=== PATIENT | male | born 1945 | race Caucasian/White ===

== ENCOUNTER 2016-12-02 09:28 | Emergency (ER) | payer OTHER ==
[2016-12-02] MEDS ORDERED: ONDANSETRON 4 MG/2 ML VIAL IVPUSH ONE (10:05)
[2016-12-02] MEDS ORDERED: SODIUM CHLORIDE 1,000 ML IV STA (10:05)
[2016-12-02 10:08] VITALS: BP 139/75; PULSE 64; TEMP 97.8; BMI 29.8
[2016-12-02] MEDS ORDERED: ONDANSETRON 4 MG/2 ML VIAL ONE (10:13)
[2016-12-02 10:22] LABS: BASOPHIL 0.5 % (0-2.0); EOSINOPHIL 1.4 % (0-4.5); MCH 30.6 pg (25.7-33.7); MCHC 34.5 g/dl (32.0-35.9); MEAN CELL VOLUME 88.8 fl (80-96); MEAN PLT VOLUME 9.3 fl (7.5-11.1); NEUTROPHILS 61.4 % (42.8-82.8); PLATELET COUNT 184 K/MM3 (134-434); RDW 13.4 % (11.9-15.9); WHITE BLOOD COUNT 6.9 K/mm3 (4.0-10.0)
--- NOTE | 2016-12-02 10:31 | PDOC ---
History of Present Illness - General Chief Complaint: Pain, Acute Stated Complaint: ABD PAIN Time Seen by Provider: 12/02/16 09:41 History Source: Patient Exam Limitations: Other (Hard of hearing, poor speech s/p stroke 2 years ago) - History of Present Illness Initial Comments: 12/02/16 10:30 Patient is a 70-year-old male with a past medical history of hyperlipidemia, depression, high blood pressure, constipation, GERD, presents to the emergency department today complaining of abdominal pain and vomiting. History is largely given by his visiting nurse. She states that yesterday he complained that he wasn't feeling well. He vomited multiple times yesterday. He has had decreased appetite and has not eaten since yesterday. Denies vomiting this morning. Aid states that he was in a lot of pain this morning and wanted to come to the emergency department. Admits to constipation. Denies chest pain, palpitations, shortness of breath, edema, diarrhea, tarry stools, hematochezia, hematemesis, urgency, frequency and dysuria. Past History - Travel Traveled outside of the country in the last 30 days: No Close contact w/someone who was outside of country & ill: No - Past Medical History Allergies/Adverse Reactions: Allergies Allergy/AdvReac Type Severity Reaction Status Date / Time No Known Allergies Allergy Verified 12/02/16 09:41 Home Medications: Ambulatory Orders Aspirin Coated [Ecotrin -] 81 mg PO DAILY 08/08/15 Docusate Sodium [Colace -] 100 mg PO TID 08/08/15 Ezetimibe [Zetia] 10 mg PO DAILY 08/08/15 Ibuprofen [Motrin -] 600 mg PO BID 08/08/15 Metoprolol Tartrate [Lopressor -] 25 mg PO BID 08/08/15 Omeprazole [Prilosec (RX)] 15 mg PO DAILY 08/08/15 Quetiapine Fumarate [Seroquel -] 400 mg PO HS 08/08/15 Repaglinide 2 mg PO TID 08/08/15 Sertraline HCl [Zoloft -] 25 mg PO DAILY 08/08/15 Simvastatin [Zocor -] 20 mg PO HS 08/08/15 Polyethylene Glycol 3350 [Miralax 119 gm Btl -] 17 gm PO DAILY PRN #3 bottle Ondansetron [Ondansetron Odt] 4 mg PO Q8H PRN #10 tab.[place] 12/02/16 Anemia: No Asthma: No Cancer: Yes Cardiac Disorders: Yes CVA: Yes (left sided) COPD: No CHF: No Dementia: No Diabetes: Yes (NID) GI Disorders: Yes (gerd) Disorders: No HTN: Yes Hypercholesterolemia: Yes Liver Disease: No Seizures: No Thyroid Disease: No - Surgical History Cardiac Surgery: Yes (triple bypass) - Psycho/Social/Smoking Cessation Hx Anxiety: No Suicidal Ideation: No Smoking Status: No Smoking History: Never smoked Have you smoked in the past 12 months: No Number of Cigarettes Smoked Daily: 0 Information on smoking cessation initiated: No Hx Alcohol Use: No Drug/Substance Use Hx: No Substance Use Type: None Hx Substance Use Treatment: No Review of Systems - Review of Systems Able to Perform ROS?: Yes Is the patient limited Indonesian proficient: No Constitutional: No: Chills, Fever, Malaise, Weakness Respiratory: No: Cough, Orthopnea, Shortness of Breath Cardiac (ROS): No: Chest Pain, Edema, Palpitations ABD/GI: Yes: Constipated, Nausea, Vomiting. No: Abdominal Distended, Abd. Pain w/ defecation, Diarrhea, Rectal Bleeding, Tarry Stools : No: Burning, Dysuria, Frequency *Physical Exam - Vital Signs Last Vital Signs Temp Pulse Resp BP Pulse Ox 97.8 F 64 18 139/75 100 12/02/16 09:41 12/02/16 09:41 12/02/16 09:41 12/02/16 09:41 12/02/16 09:41 - Physical Exam Comments: 12/02/16 10:35 GENERAL: Well developed, well nourished. Awake and alert, non verbal. No acute distress. HEENT: Normocephalic, atraumatic. PERRLA, EOMI. No conjunctival pallor. Sclera are non- icteric. Moist mucous membranes. Oropharynx is clear. NECK: Supple. Full ROM. No JVD. Carotid pulses 2+ and symmetric, without bruits. No thyromegaly. No lymphadenopathy. CARDIOVASCULAR: Regular rate and rhythm. No murmurs, rubs, or gallops. Distal pulses are 2+ and symmetric. PULMONARY: No evidence of respiratory distress. Lungs clear to auscultation bilaterally. No wheezing, rales or rhonchi. ABDOMINAL: Soft. TTP of the RLQ. Non-distended. (+) rebound tenderness with LLQ deep palpation. (-) psoas and obturator signs. No guarding. No organomegaly. Normoactive bowel sounds. MUSCULOSKELETAL Contracted L arm d/t old stroke. Normal range of motion at all other joints. No bony deformities or tenderness. No CVA tenderness. EXTREMITIES: No cyanosis. No clubbing. No edema. No calf tenderness. SKIN: Warm and dry. Normal capillary refill. No rashes. No jaundice. NEUROLOGICAL: Alert, awake, appropriate. Cranial nerves 2-12 intact. No deficits to light touch and temperature in face, upper extremities and lower extremities. No motor deficits in the in face, upper extremities and lower extremities. L upper extremity contracted d/t prior stroke. Normoreflexic in the upper and lower extremities. Non-verbal. Toes are down-going bilaterally. Gait is unobserved. PSYCHIATRIC: Cooperative. Good eye contact. Appropriate mood and affect. ED Treatment Course - LABORATORY CBC & Chemistry Diagram: 12/02/16 10:07 12/02/16 11:31 - ADDITIONAL ORDERS Additional order review: 12/02/16 10:07 RBC 5.03 MCV 88.8 MCHC 34.5 RDW 13.4 MPV 9.3 D Neutrophils % 61.4 Lymphocytes % 27.3 D Monocytes % 9.4 Eosinophils % 1.4 Basophils % 0.5 - Medications Given in the ED: ED Medications Discontinued Medications Generic Name Dose Route Start Last Admin Trade Name Freq PRN Reason Stop Dose Admin Ondansetron HCl 4 mg 12/02/16 10:05 12/02/16 10:17 Zofran Injection IVPUSH 12/02/16 10:06 4 mg ONCE ONE Administration Medical Decision Making - Medical Decision Making 12/02/16 10:40 Patient is a 70-year-old male with a past medical history of hyperlipidemia, depression, high blood pressure, constipation, GERD, presents to the emergency department today complaining of abdominal pain and vomiting. Patient is a poor historian, and most of the history is extracted from the visiting nurse. Hx of paralytic ilius Given his abdominal pain we'll obtain CT of the abdomen to rule out possible appendicitis, diverticulitis. Also could be a SBO, ilius, viral syndrome. No recent antibiotic use or new foods. 1. CBC CMP, lipase, cardiac labs, UA 2. EKG, CT of the abdomen. We will send after CMP is back 3. Zofran for nausea and fluids 4. Re-evaluate 12/02/16 12:08 CMP hemolyized. Waiting for repeat labs to evaluate scanning options. 12/02/16 13:01 Kidney function tests were WNL. Pt sent for CT Abd/pelvis with contrasts 12/02/16 14:52 CT ABD/pelvis Impression: trace right pleural effusion. Otherwise no significant entered old change. No CT evidence of acute process in the abdomen or pelvis. Normal-appearing appendix. 12/02/16 15:27 Pt. states he is feeling much better after the zofran. Will PO trial and home 12/02/16 15:36 Pt. tolerates PO fluid. Will discharge home at this time. Pt. understands all discharge instructions and all questions were answered at this time. *DC/Admit/Observation/Transfer Diagnosis at time of Disposition: Abdominal pain Qualifiers: Abdominal location: generalized Qualified Code(s): R10.84 - Generalized abdominal pain - Discharge Dispostion Admit: No - Prescriptions Prescriptions: Ondansetron [Ondansetron Odt] 4 mg PO Q8H PRN #10 tab.rapdis PRN Reason: Nausea - Referrals Referrals: Carlitos Ribeiro MD [Primary Care Provider] - - Patient Instructions Printed Discharge Instructions: DI for Acute Abdomen Additional Instructions: You had abdominal pain. Your CAT Scan today was negative for appendicitis, small bowel obstruction, or any other acute pathology. Eat a bland diet for the next few days such as toast,apple sauce, bananas, and plain rice. You may take tylenol or motrin as needed for pain. Follow up with your primary care doctor by Friday. Return to the emergency department if you have worsening pain, fevers, chills, vomiting or any changes in your symptoms.
[2016-12-02 10:39] LABS: INR 1.14 (0.82-1.09); PROTHROMBIN TIME (PATIENT) 12.6 SEC (9.98-11.88)
--- NOTE | 2016-12-02 11:32 | PDOC ---
*Physical Exam - Vital Signs Last Vital Signs Temp Pulse Resp BP Pulse Ox 97.8 F 64 18 139/75 100 12/02/16 09:41 12/02/16 09:41 12/02/16 09:41 12/02/16 09:41 12/02/16 09:41 - Physical Exam General Appearance: Yes: Nourished Neck: positive: Trachea midline Respiratory/Chest: positive: Lungs Clear, Normal Breath Sounds Cardiovascular: positive: Regular Rhythm, Regular Rate, S1, S2 Gastrointestinal/Abdominal: positive: Normal Bowel Sounds, Tender, Soft, Protuberent, Other (distended) Musculoskeletal: positive: Normal Inspection. negative: CVA Tenderness Extremity: positive: Normal Capillary Refill, Normal Inspection Integumentary: positive: Normal Color, Dry, Warm Heart Score/ECG Review #1 General ECG Interpretation: Sinus Rhythm, Normal Rate (62), Normal Intervals, No acute ischemic changes Compared to previous ECG there are: Other (comparison 08/08/15. TWI V1 - V2) - ECG Intrepretation Rhythm: Regularly Irregular ED Treatment Course - LABORATORY CBC & Chemistry Diagram: 12/02/16 10:07 12/02/16 10:07 - ADDITIONAL ORDERS Additional order review: Laboratory Results 12/02/16 12/02/16 12/02/16 10:07 10:07 09:50 INR 1.14 Sodium Cancelled Potassium Cancelled Chloride Cancelled Carbon Dioxide Cancelled Anion Gap Cancelled BUN Cancelled Creatinine Cancelled Creat Clearance w eGFR Cancelled Random Glucose Cancelled Calcium Cancelled Total Bilirubin Cancelled AST Cancelled ALT Cancelled Alkaline Phosphatase Cancelled Creatine Kinase Cancelled Troponin I Cancelled Total Protein Cancelled Albumin Cancelled Lipase Cancelled 12/02/16 10:07 RBC 5.03 MCV 88.8 MCHC 34.5 RDW 13.4 MPV 9.3 D Neutrophils % 61.4 Lymphocytes % 27.3 D Monocytes % 9.4 Eosinophils % 1.4 Basophils % 0.5 - Medications Given in the ED: ED Medications Discontinued Medications Generic Name Dose Route Start Last Admin Trade Name Freq PRN Reason Stop Dose Admin Ondansetron HCl 4 mg 12/02/16 10:05 12/02/16 10:17 Zofran Injection IVPUSH 12/02/16 10:06 4 mg ONCE ONE Administration Medical Decision Making - Medical Decision Making 12/02/16 11:28 70 yo M with h/o prior CABG, HTN CVA left sided weakness, expressive aphasia her wtih c/o n/v and abd pain. was here for similar within the last year, at that time had an ilieus. unsure change to bowelmovements. no f/c. no other complaintsd. on exam pt awake alert, lungs clear. heart RRR no mr/g. abd soft distended. mild lower bilat lower abd ttp. ext wwp. differential: ilius, sbo, divertic, appy, urinary retention, uti. plan ua labs ct a/p antiemetics reassess. 12/02/16 11:33 pt seen and examined. discussed with MEHDI Armendariz, agree [facility] assessment and plan
[2016-12-02 12:22] LABS: ALBUMIN 3.6 g/dl (3.4-5.0); ANION GAP 9 (8-16); BILIRUBIN,TOTAL 0.4 mg/dL (0.2-1.0); CALCIUM 8.9 mg/dL (8.5-10.1); CO2 24 mmol/L (21-32); GLUCOSE,RANDOM 101 mg/dL (74-106); SGPT/ALT 28 U/L (12-78); TOT PROT 6.8 g/dl (6.4-8.2)
[2016-12-02 12:25] LABS: ALK PHOS 48 U/L (45-117); TROPONIN I < 0.02 ng/ml (0.00-0.05)
[2016-12-02 12:26] LABS: SGOT/AST 30 U/L (15-37)
--- NOTE | 2016-12-02 12:31 | EKG ---
Test Reason : Blood Pressure : / mmHG Vent. Rate : 062 BPM Atrial Rate : 062 BPM P-R Int : 164 ms QRS Dur : 082 ms QT Int : 414 ms P-R-T Axes : 054 026 061 degrees QTc Int : 420 ms NORMAL SINUS RHYTHM NONSPECIFIC ST ABNORMALITY ABNORMAL ECG WHEN COMPARED WITH ECG OF 08-AUG-2015 10:46, NO SIGNIFICANT CHANGE WAS FOUND Confirmed by KOBY MENDIOLA MD ([id number]) on 12/02/2016 12:31:32 PM Referred By: Confirmed By:KOBY MENDIOLA MD
[2016-12-02 14:38] LABS: URINE APPEARANCE CLEAR; URINE BILIRUBIN NEGATIVE (NEGATIVE); URINE BLOOD NEGATIVE (NEGATIVE); URINE COLOR YELLOW; URINE GLUCOSE (UA) NEGATIVE (NEGATIVE); URINE KETONE 1+ (NEGATIVE); URINE LEUK ESTERASE NEGATIVE (NEGATIVE); URINE NITRITE NEGATIVE (NEGATIVE); URINE PROTEIN NEGATIVE (NEGATIVE); URINE UROBILINOGEN NEGATIVE mg/dL (0.2-1.0)
== END 2016-12-02 15:44 | disposition home or self-care (01) ==
LOC: JER 09:28
PROC: 3E0337Z Introduction of Electrolytic and Water Balance Substance into Peripheral Vein, Percutaneous Approach (ICD-10-PCS; principal; 2016-12-02)
PROC: 3E033GC Introduction of Other Therapeutic Substance into Peripheral Vein, Percutaneous Approach (ICD-10-PCS; 2016-12-02)
DX: R10.84 Generalized abdominal pain (principal); I10 Essential (primary) hypertension; K21.9 Gastro-esophageal reflux disease without esophagitis; E78.00 Pure hypercholesterolemia, unspecified; F32.9 Major depressive disorder, single episode, unspecified
CPT/HCPCS: 36415; 71010-TC; 74177-TC; 80053; 81003; 82550; 82553; 83690; 84484; 85025; 85610; 93005; 93010; 96361; 96374; 99283-25

== ENCOUNTER 2017-06-07 09:09 | Emergency (ER) | payer OTHER ==
[2017-06-07 09:39] VITALS: BMI 26.5
[2017-06-07 10:14] LABS: BASO % 0.2 % (0-2.0); HEMATOCRIT 43.3 % (35.4-49); HEMOGLOBIN 14.6 GM/dL (11.7-16.9); LYMPH % 24.6 % (8-40); MCH 30.6 pg (25.7-33.7); MCHC 33.7 g/dl (32.0-35.9); MEAN CELL VOLUME 90.8 fl (80-96); MEAN PLT VOLUME 9.2 fl (7.5-11.1); MONO % 8.7 % (3.8-10.2); NEUT % 64.5 % (42.8-82.8); PLATELET COUNT 194 K/MM3 (134-434); RBC 4.77 M/mm3 (4.00-5.60); RDW 13.1 % (11.9-15.9); WHITE BLOOD COUNT 5.8 K/mm3 (4.0-10.0)
--- NOTE | 2017-06-07 10:27 | PDOC ---
History of Present Illness - General History Source: Other (nursing aid) Exam Limitations: No Limitations - History of Present Illness Initial Comments: 06/07/17 11:15 The patient is a 71 year old male with a significant PMH of hyperlipidemia, depression, high blood pressure, constipation, and GERD who presents to the emergency department with multiple episodes of emesis and coughing since yesterday. His visiting nurse is at bedside and providing a brief history as she did not witness him vomiting. As per the nursing aid, she was told this morning that the patient had multiple episodes of non-bloody, non-bilious vomit yesterday. The patient is complaining of epigastric pain and cough but has no other complaints. As per the nursing aid, the patient is non-verbal at baseline. The patient denies chest pain, shortness of breath, headache and dizziness. Denies fever, chills, diarrhea and constipation. Denies dysuria, frequency, urgency and hematuria. Allergies: NKA Past surgical history: None reported. Social history: No reported alcohol, drug, or cigarette use. PCP: Carlitos Kay <Cecilia Velez - Last Filed: 06/07/17 12:45> <Fabiana Villagran - Last Filed: 06/07/17 13:08> - General Chief Complaint: Nausea/Vomiting Stated Complaint: VOMITING Time Seen by Provider: 06/07/17 09:13 Past History <Cecilia Velez - Last Filed: 06/07/17 12:45> - Past Medical History Anemia: No Asthma: No Cancer: Yes Cardiac Disorders: Yes (CABG) CVA: Yes (left sided) COPD: No CHF: No Dementia: No Diabetes: Yes (NID) GI Disorders: Yes (gerd) Disorders: No HTN: Yes Hypercholesterolemia: Yes Liver Disease: No Seizures: No Thyroid Disease: No - Surgical History Cardiac Surgery: Yes (triple bypass) - Suicide/Smoking/Psychosocial Hx Smoking Status: No Smoking History: Former smoker Have you smoked in the past 12 months: No Number of Cigarettes Smoked Daily: 0 If you are a former smoker, when did you quit?: 40 + YEARS Information on smoking cessation initiated: No Hx Alcohol Use: No Drug/Substance Use Hx: No Substance Use Type: None Hx Substance Use Treatment: No <Fabiana Villagran - Last Filed: 06/07/17 13:08> - Past Medical History Allergies/Adverse Reactions: Allergies Allergy/AdvReac Type Severity Reaction Status Date / Time No Known Allergies Allergy Verified 06/07/17 09:35 Home Medications: Ambulatory Orders Aspirin Coated [Ecotrin -] 81 mg PO DAILY 08/08/15 Docusate Sodium [Colace -] 100 mg PO TID 08/08/15 Ezetimibe [Zetia] 10 mg PO DAILY 08/08/15 Metoprolol Tartrate [Lopressor -] 25 mg PO BID 08/08/15 Sertraline HCl [Zoloft -] 25 mg PO DAILY 08/08/15 Simvastatin [Zocor -] 20 mg PO HS 08/08/15 Review of Systems - Review of Systems Able to Perform ROS?: Yes Comments:: 06/07/17 11:17 GENERAL/CONSTITUTIONAL: No fever or chills. No weakness. HEAD, EYES, EARS, NOSE AND THROAT: No change in vision. No ear pain or discharge. No sore throat. CARDIOVASCULAR: No chest pain or shortness of breath. RESPIRATORY: (+) Cough. No wheezing, or hemoptysis. GASTROINTESTINAL: (+) Epigastric pain. (+) Vomiting. No diarrhea or constipation. GENITOURINARY: No dysuria, frequency, or change in urination. MUSCULOSKELETAL: No joint or muscle swelling or pain. No neck or back pain. SKIN: No rash NEUROLOGIC: No headache, vertigo, loss of consciousness, or change in strength/ sensation. ENDOCRINE: No increased thirst. No abnormal weight change. HEMATOLOGIC/LYMPHATIC: No anemia, easy bleeding, or history of blood clots. ALLERGIC/IMMUNOLOGIC: No hives or skin allergy. <Cecilia Velez - Last Filed: 06/07/17 12:45> *Physical Exam - Vital Signs Last Vital Signs Temp Pulse Resp BP Pulse Ox 98.7 F 71 20 135/74 95 06/07/17 09:20 06/07/17 09:20 06/07/17 09:20 06/07/17 09:20 06/07/17 09:20 - Physical Exam Comments: 06/07/17 11:17 GENERAL: (+) Aphasic but can orient the pain and can write. Awake, alert, and fully oriented, in no acute distress HEAD: No signs of trauma EYES: PERRLA, EOMI, sclera anicteric, conjunctiva clear ENT: Auricles normal inspection, hearing grossly normal, nares patent, oropharynx clear without exudates. Moist mucosa NECK: Normal ROM, supple, no lymphadenopathy, JVD, or masses LUNGS: Breath sounds equal, clear to auscultation bilaterally. No wheezes, and no crackles HEART: Regular rate and rhythm, normal S1 and S2, no murmurs, rubs or gallops ABDOMEN: Soft, nontender, normoactive bowel sounds. No guarding, no rebound. No masses EXTREMITIES: (+) Contracture on the right hand. Normal range of motion, no edema. No clubbing or cyanosis. No cords, erythema, or tenderness NEUROLOGICAL: Cranial nerves II through XII grossly intact. Normal speech, normal gait SKIN: Warm, Dry, normal turgor, no rashes or lesions noted. <Cecilia Velez - Last Filed: 06/07/17 12:45> - Vital Signs Last Vital Signs Temp Pulse Resp BP Pulse Ox 98.7 F 71 20 135/74 95 06/07/17 09:20 06/07/17 09:20 06/07/17 09:20 06/07/17 09:20 06/07/17 09:20 <Fabiana Villagran - Last Filed: 06/07/17 13:08> ED Treatment Course - LABORATORY CBC & Chemistry Diagram: 06/07/17 09:50 06/07/17 09:50 - ADDITIONAL ORDERS Additional order review: 06/07/17 09:50 RBC 4.77 MCV 90.8 MCHC 33.7 RDW 13.1 MPV 9.2 Neutrophils % 64.5 Lymphocytes % 24.6 Monocytes % 8.7 Eosinophils % 2.0 Basophils % 0.2 <Cecilia Velez - Last Filed: 06/07/17 12:45> - LABORATORY CBC & Chemistry Diagram: 06/07/17 09:50 06/07/17 09:50 - ADDITIONAL ORDERS Additional order review: 06/07/17 09:50 RBC 4.77 MCV 90.8 MCHC 33.7 RDW 13.1 MPV 9.2 Neutrophils % 64.5 Lymphocytes % 24.6 Monocytes % 8.7 Eosinophils % 2.0 Basophils % 0.2 <Fabiana Villagran - Last Filed: 06/07/17 13:08> Medical Decision Making - Medical Decision Making 06/07/17 13:01 Pt presents to the ED after brought in by home health aide for vomiting. Patient denies complaints in the ED and is tolerating PO. Labs show no evidence of severe infection or biliary disease. CXR is negative. Will discharge home with follow up with PMD Dr. Ribeiro on Friday. I have discussed this plan with Dr. Ribeiro and he is in agreement. <Fabiana Villagran - Last Filed: 06/07/17 13:08> *DC/Admit/Observation/Transfer - Attestations Scribe Attestion: 06/07/17 11:17 Documentation prepared by Cecilia Velez, acting as director of medical services for Fabiana Villagran MD. <Cecilia Velez - Last Filed: 06/07/17 12:45> - Discharge Dispostion Admit: No <Fabiana Villagran - Last Filed: 06/07/17 13:08> Diagnosis at time of Disposition: Vomiting Qualifiers: Vomiting type: unspecified Vomiting Intractability: non-intractable Nausea presence: with nausea Qualified Code(s): R11.2 - Nausea with vomiting, unspecified - Discharge Dispostion Disposition: HOME Condition at time of disposition: Good - Referrals Referrals: Carlitos Ribeiro MD [Primary Care Provider] - - Patient Instructions Printed Discharge Instructions: DI for Vomiting -- Adult Additional Instructions: return to the ED for severe pain, nausea and vomiting unable to keep fluids down , fever, other new or worsening symptoms. Make sure that you follow up with Dr. Carlitos Ribeiro on Friday morning--call the office for follow up. - Post Discharge Activity
[2017-06-07 11:26] LABS: ALBUMIN 3.9 g/dl (3.4-5.0); ANION GAP 10 (8-16); BLOOD UREA NITROGEN 20 mg/dL (7-18); CALCIUM 8.4 mg/dL (8.5-10.1); CHLORIDE 105 mmol/L (98-107); CO2 26 mmol/L (21-32); CREATININE 1.1 mg/dL (0.7-1.3); GLUCOSE,RANDOM 113 mg/dL (74-106); SGOT/AST 20 U/L (15-37); SGPT/ALT 27 U/L (12-78); SODIUM 141 mmol/L (136-145)
[2017-06-07 11:40] LABS: ALK PHOS 49 U/L (45-117); BILIRUBIN,TOTAL 0.5 mg/dL (0.2-1.0); TOT PROT 7.3 g/dl (6.4-8.2)
[2017-06-07 12:40] LABS: URINE APPEARANCE CLEAR; URINE BILIRUBIN NEGATIVE (NEGATIVE); URINE BLOOD NEGATIVE (NEGATIVE); URINE COLOR YELLOW; URINE GLUCOSE (UA) NEGATIVE (NEGATIVE); URINE KETONE 1+ (NEGATIVE); URINE LEUK ESTERASE NEGATIVE (NEGATIVE); URINE NITRITE NEGATIVE (NEGATIVE); URINE PROTEIN NEGATIVE (NEGATIVE)
[2017-06-07 13:30] VITALS: BP 124/81; PULSE 78; TEMP 98.2
--- NOTE | 2017-06-08 16:08 | EKG ---
Test Reason : Blood Pressure : / mmHG Vent. Rate : 073 BPM Atrial Rate : 073 BPM P-R Int : 170 ms QRS Dur : 084 ms QT Int : 392 ms P-R-T Axes : 065 047 066 degrees QTc Int : 431 ms NORMAL SINUS RHYTHM NONSPECIFIC ST AND T WAVE ABNORMALITY ABNORMAL ECG WHEN COMPARED WITH ECG OF 02-DEC-2016 10:03, NO SIGNIFICANT CHANGE WAS FOUND Confirmed by Austin Bryant ([id number]) on 06/08/2017 4:07:39 PM Referred By: Confirmed By:Austin Bryant
== END 2017-06-07 13:31 | disposition home or self-care (01) ==
LOC: JER 09:09
DX: R11.2 Nausea with vomiting, unspecified (principal); I25.10 Atherosclerotic heart disease of native coronary artery without angina pectoris; I10 Essential (primary) hypertension; Z95.1 Presence of aortocoronary bypass graft; Z87.891 Personal history of nicotine dependence; E11.9 Type 2 diabetes mellitus without complications; Z79.84 Long term (current) use of oral hypoglycemic drugs; K21.9 Gastro-esophageal reflux disease without esophagitis; I69.854 Hemiplegia and hemiparesis following other cerebrovascular disease affecting left non-dominant side; I69.820 Aphasia following other cerebrovascular disease
CPT/HCPCS: 36415; 71045-TC; 80053; 81003; 83605; 83690; 85025; 93005; 93010; 99283-25

== ENCOUNTER 2018-04-14 08:58 | Emergency (ER) | payer OTHER ==
[2018-04-14 09:29] VITALS: BMI 40.3
--- NOTE | 2018-04-14 09:41 | PDOC ---
History of Present Illness - History of Present Illness Initial Comments: 04/14/18 10:54 The patient is a 72 year old with a past medical history of HTN, HLD, hearing impairment, anxiety, depression, and diabetes here today for evaluation of two episodes of falling. As per the patients aid, the patient fell yesterday and hit his right foot on a door which caused him to be unable to ambulate. The patients aid reports that he fell again this morning and was found on the floor. The aid was not able to confirm or deny LOC or headstrike. The patients aid confirms that the patient is usually confused and is at his baseline today. Patient denies headache, lightheadedness. Denies fever, chills. Denies chest pain, shortness of breath. Denies nausea, vomiting, diarrhea, abdominal pain. Denies lower extremity edema. Denies urinary symptoms. Denies neurologic symptoms. 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) COPD: No CHF: No Dementia: No Diabetes: Yes (NID) GI Disorders: Yes (gerd) Disorders: No HTN: Yes Hypercholesterolemia: Yes Liver Disease: No Seizures: No Thyroid Disease: No - Surgical History Cardiac Surgery: Yes (triple bypass) Cholecystectomy: No - Immunization History Immunization Up to Date: No - Suicide/Smoking/Psychosocial Hx Smoking Status: No Smoking History: Never smoked Have you smoked in the past 12 months: No Number of Cigarettes Smoked Daily: 0 If you are a former smoker, when did you quit?: 40 + YEARS Information on smoking cessation initiated: No Hx Alcohol Use: No Drug/Substance Use Hx: No Substance Use Type: None Hx Substance Use Treatment: No <Sheryl Major - Last Filed: 04/14/18 14:15> - Past Medical History Allergies/Adverse Reactions: Allergies Allergy/AdvReac Type Severity Reaction Status Date / Time No Known Allergies Allergy Verified 06/07/17 09:35 Home Medications: Ambulatory Orders Aspirin Coated [Ecotrin -] 81 mg PO DAILY 08/08/15 Docusate Sodium [Colace -] 100 mg PO TID 08/08/15 Ezetimibe [Zetia] 10 mg PO DAILY 08/08/15 Metoprolol Tartrate [Lopressor -] 25 mg PO BID 08/08/15 Sertraline HCl [Zoloft -] 25 mg PO DAILY 08/08/15 Simvastatin [Zocor -] 20 mg PO HS 08/08/15 Review of Systems - Review of Systems Able to Perform ROS?: No (hearing impaired, confuse) <Sheryl Major - Last Filed: 04/14/18 14:15> *Physical Exam - Vital Signs Last Vital Signs Temp Pulse Resp BP Pulse Ox 99.7 F H 84 16 110/65 98 04/14/18 09:57 04/14/18 09:57 04/14/18 09:57 04/14/18 09:57 04/14/18 09:57 - Physical Exam Comments: 04/14/18 10:54 General: NAD, well appearing Vascular: 2+ DP pulses symmetric and equal. Back: no midline tenderness, no stepoffs, FROM Focused MSK/Neuro Exam notable for soft compartments, Cap refill <2 sec. Proximal and distal strength 5/5, product marketing engineer strength 5/5 - equal and symmetric. Plantar flexion and dorsiflexion 5/5. FROM. Sensation grossly intact to light touch. No calf tenderness. Residual left sidedness with contracture. Skin: color normal color, warm and well perfused. Ankle: right medial malleolar tenderness Chest: anterior sternotomy scar <Robert Moreno - Last Filed: 04/14/18 10:45> - Vital Signs Last Vital Signs Temp Pulse Resp BP Pulse Ox 99.7 F H 73 16 106/65 100 04/14/18 09:21 04/14/18 09:21 04/14/18 09:21 04/14/18 09:21 04/14/18 09:21 <Sheryl Major - Last Filed: 04/14/18 14:15> Moderate Sedation - Procedure Monitoring Vital Signs: Procedure Monitoring Vital Signs Temperature 99.7 F H 04/14/18 09:57 Pulse Rate 84 04/14/18 09:57 Respiratory Rate 16 04/14/18 09:57 Blood Pressure 110/65 04/14/18 09:57 O2 Sat by Pulse Oximetry (%) 98 04/14/18 09:57 <Robert Moreno - Last Filed: 04/14/18 10:45> - Procedure Monitoring Vital Signs: Procedure Monitoring Vital Signs Temperature 99.7 F H 04/14/18 09:21 Pulse Rate 73 04/14/18 09:21 Respiratory Rate 16 04/14/18 09:21 Blood Pressure 106/65 04/14/18 09:21 O2 Sat by Pulse Oximetry (%) 100 04/14/18 09:21 <Sheryl Major - Last Filed: 04/14/18 14:15> Heart Score/ECG Review - ECG Impressions Comment:: 04/14/18 11:09 EKG normal sinus rhythm, no interval abnormalities, narrow QRS, ST and T wave segments and morphology normal. Nonspecific T wave abnormalities <Sheryl Major - Last Filed: 04/14/18 14:15> ED Treatment Course - LABORATORY CBC & Chemistry Diagram: 04/14/18 10:05 04/14/18 10:05 - ADDITIONAL ORDERS Additional order review: 04/14/18 10:05 RBC 4.95 MCV 89.9 MCHC 35.6 RDW 13.7 MPV 9.6 Neutrophils % 73.3 Lymphocytes % 14.6 D Monocytes % 11.4 H Eosinophils % 0.4 Basophils % 0.3 - Medications Given in the ED: ED Medications Discontinued Medications Generic Name Dose Route Start Last Admin Trade Name Freq PRN Reason Stop Dose Admin Acetaminophen 975 mg 04/14/18 09:52 04/14/18 10:28 Tylenol - PO 04/14/18 09:53 975 mg ONCE ONE Administration <Robert Moreno - Last Filed: 04/14/18 10:45> - LABORATORY CBC & Chemistry Diagram: 04/14/18 10:05 04/14/18 11:34 <Sheryl Major - Last Filed: 04/14/18 14:15> Medical Decision Making - Medical Decision Making 04/14/18 11:59 MDM: Sebastian 72 YOM with h/o HTN, HLD, hearing impairment, anxiety and depression presenting with unwitnessed fall, found on the ground complaining of right ankle and foot pain, unable to ambulate. History limited due to hearing impairment, but able to verbalize +left foot and ankle pain with movement. Vital signs reviewed, wnl. No fever on rectal check, only 99. spo2 improved, no respiratory sx, no cp or sob, no chest wall findings to suggest injury or infection, normal respirations. Prior notes reviewed, including admissions, discharges and consultations. laboratory results and imaging reviewed, basic labs and lytes wnl, notable for nonspecific leukocytosis, otherwise wnl UA_neg Foot and ankle xr with degenerative changes, ?fx of distal aspect of proximal phalanx of second toe, calcaneal spurs of degenerative nature, hammertoes. CXR clear, no infiltrate. no acute changes, no pathology. ED course: tylenol for analgesia, ambulation trial, d/w home health aid the results of XR with arthritic changes and ?toe fx. no ankle fx. will treat with hard sole shoe and lakeisha taping. rest ice and elevate, supportive care. scarlett PO intake, ambulation with baseline cane. Dispo: I discussed the physical exam findings, ancillary test results and final diagnoses with the patient's aid and pt.. I answered all of the patient's questions. The patient was satisfied with the care received and felt comfortable with the discharge plan and treatment plan. The patient will return to the Emergency Department with any new, persistent or worsening symptoms. fall safety precautions discussed. 04/14/18 14:13 04/14/18 14:14 <Sheryl Major - Last Filed: 04/14/18 14:15> *DC/Admit/Observation/Transfer - Attestations Scribe Attestion: 04/14/18 10:54 Documentation prepared by BRODERICK Soriano, acting as medical scientist for Sheryl Major MD, MD. <Robert Moreno - Last Filed: 04/14/18 10:45> - Discharge Dispostion Decision to Admit order: No - Attestations Physician Attestion: 04/14/18 11:59 I, Sheryl Major MD, attest that this document has been prepared under my direction and personally reviewed by me in its entirety. I further attest, that it accurately reflects all work, treatment, procedures and medical decision -making performed by me. <Sheryl Major - Last Filed: 04/14/18 14:15> Diagnosis at time of Disposition: Injury of toe on right foot - Discharge Dispostion Disposition: HOME Condition at time of disposition: Good - Referrals Referrals: Carlitos Ribeiro MD [Primary Care Provider] - - Patient Instructions Printed Discharge Instructions: DI for Hammer Toe, DI for Toe Fracture, How to Prevent Falls Additional Instructions: you have a toe fracture to your right 2nd toe possibly use the lakeisha taping for immobilization and a hard sole shoe, you can use the cane to help you ambulate weight bearing as tolerated, avoid over strenuous activity. rest ice and elevate for support tylenol for pain control. follow up with your primary doctor for reevaluation of your toe. FALL PREVENTION AT HOME WHAT YOU NEED TO KNOW There are many different factors that can increase your risk of falls. Falls can happen any time, but the majority of them occur in the home. Fall prevention includes ways to make your home and other areas safer. It also includes ways you can move more carefully to prevent a fall. Health conditions that cause changes in your blood pressure, vision, or muscle strength and coordination may increase your risk for falls. Medicines, including anesthesia, may increase your risk for falls if they make you dizzy, weak, or sleepy. FALL PREVENTION TIPS Stand or sit up slowly. This may help you keep your balance and prevent falls. Do not walk and talk at the same time. Concentrate on the task of walking and continue the conversation after you've reached a safe place. Wear shoes that fit well and have soles that product marketing engineer. Wear shoes both inside and outside. Use slippers with good product marketing engineer. Avoid shoes with high heels. Use assistive devices as directed. Your healthcare provider may suggest that you use a cane or walker to help you keep you balance. Be sure you have adequate lighting throughout your house. Keep paths clear. Remove books, shoes and other objects from walkways and stairs. Keep cords for telephones and lamps out of the way so you dont need to walk over them. Remove small rugs or secure them with double-sided tape. This will prevent you from tripping. Use a nightlight when getting out of bed at night. Stay active to maintain overall strength and endurance. Know your limitations. If there is a task you can not complete with ease, do not risk a fall by trying to complete it. Call 911 or have someone else call if: You have fallen and are unconscious You have fallen and cannot move part of your body Contact your healthcare provider if: You have fallen and have pain or a headache You have questions or concerns about your condition or care. - Post Discharge Activity
[2018-04-14] MEDS ORDERED: ACETAMINOPHEN 325 MG TABLET (FP) PO ONE (09:52)
[2018-04-14 10:16] LABS: BASO % 0.3 % (0-2.0); EOS % 0.4 % (0-4.5); HEMATOCRIT 44.5 % (35.4-49); HEMOGLOBIN 15.8 GM/dL (11.7-16.9); LYMPH % 14.6 % (8-40); MCHC 35.6 g/dl (32.0-35.9); MEAN CELL VOLUME 89.9 fl (80-96); MEAN PLT VOLUME 9.6 fl (7.5-11.1); MONO % 11.4 % (3.8-10.2); NEUT % 73.3 % (42.8-82.8); PLATELET COUNT 208 K/MM3 (134-434); RBC 4.95 M/mm3 (4.00-5.60); RDW 13.7 % (11.9-15.9); WHITE BLOOD COUNT 12.4 K/mm3 (4.0-10.0)
[2018-04-14] MEDS ORDERED: ACETAMINOPHEN 325 MG TABLET (FP) ONE (10:25)
[2018-04-14 10:28] LABS: URINE APPEARANCE CLEAR; URINE BILIRUBIN NEGATIVE (<2.0 mg/dL); URINE COLOR DKYELLOW; URINE GLUCOSE (UA) NEGATIVE (NEGATIVE); URINE KETONE NEGATIVE (NEGATIVE); URINE LEUK ESTERASE NEGATIVE (NEGATIVE); URINE NITRITE NEGATIVE (NEGATIVE); URINE PROTEIN 1+ (NEGATIVE)
[2018-04-14 11:03] LABS: EPI CELLS RARE /HPF (FEW); URINE MUCUS RARE
[2018-04-14 11:53] VITALS: BP 115/68; PULSE 70; TEMP 99.3
[2018-04-14 12:20] LABS: ALBUMIN 3.6 g/dl (3.4-5.0); ALK PHOS 56 U/L (45-117); ANION GAP 6 MMOL/L (8-16); BILIRUBIN,TOTAL 0.7 mg/dL (0.2-1); BLOOD UREA NITROGEN 17 mg/dL (7-18); CHLORIDE 103 mmol/L (98-107); CO2 28 mmol/L (21-32); GLUCOSE,RANDOM 131 mg/dL (74-106); POTASSIUM 4.1 mmol/L (3.5-5.1); SGOT/AST 19 U/L (15-37); SGPT/ALT 26 U/L (13-61); SODIUM 137 mmol/L (136-145); TOT PROT 7.2 g/dl (6.4-8.2)
--- NOTE | 2018-04-14 12:25 | EKG ---
Test Reason : Blood Pressure : / mmHG Vent. Rate : 073 BPM Atrial Rate : 073 BPM P-R Int : 160 ms QRS Dur : 082 ms QT Int : 382 ms P-R-T Axes : 029 015 047 degrees QTc Int : 420 ms NORMAL SINUS RHYTHM NONSPECIFIC ST ABNORMALITY ABNORMAL ECG Confirmed by MD SUNG, ANNIA ([id number]) on 04/14/2018 12:25:14 PM Referred By: Confirmed By:ANNIA ALMARAZ MD
== END 2018-04-14 16:31 | disposition home or self-care (01) ==
LOC: JER 08:58
DX: S99.821A Other specified injuries of right foot, initial encounter (principal); W18.39XA Other fall on same level, initial encounter; Z91.81 History of falling; Y93.89 Activity, other specified; Y92.038 Other place in apartment as the place of occurrence of the external cause; Y99.8 Other external cause status; I25.10 Atherosclerotic heart disease of native coronary artery without angina pectoris; I10 Essential (primary) hypertension; Z95.1 Presence of aortocoronary bypass graft; E11.9 Type 2 diabetes mellitus without complications; Z79.84 Long term (current) use of oral hypoglycemic drugs; E78.00 Pure hypercholesterolemia, unspecified; I69.854 Hemiplegia and hemiparesis following other cerebrovascular disease affecting left non-dominant side; Z87.898 Personal history of other specified conditions; K21.9 Gastro-esophageal reflux disease without esophagitis
CPT/HCPCS: 36415; 71046-TC-FY; 73610-TC-RT-FY; 73630-TC-RT-FY; 80053; 81003; 81015; 85025; 87086; 93005; 93010; 99284-25

== ENCOUNTER 2018-05-04 15:33 | Inpatient (IN) | payer OTHER ==
--- NOTE | 2018-05-04 16:31 | PDOC ---
History of Present Illness - General Stated Complaint: Altered Mental Status Time Seen by Provider: 05/04/18 16:15 - History of Present Illness Initial Comments: 05/04/18 16:30 The patient is a 72 year old with a past medical history of HTN, HLD, hearing impairment, anxiety, depression, and diabetes here today for unclear reason. Patient is deaf and mute. per ems, home improvement contractor called because patient was non- verbally expressing signs of loneliness and depression. Unclear which those were as this is all that was said to EMS. 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) COPD: No CHF: No Dementia: No Diabetes: Yes (NID) GI Disorders: Yes (gerd) Disorders: No HTN: Yes Hypercholesterolemia: Yes Liver Disease: No Seizures: No Thyroid Disease: No - Surgical History Cardiac Surgery: Yes (triple bypass) - Suicide/Smoking/Psychosocial Hx Smoking Status: No Smoking History: Never smoked Have you smoked in the past 12 months: No Number of Cigarettes Smoked Daily: 0 If you are a former smoker, when did you quit?: 40 + YEARS Hx Alcohol Use: No Drug/Substance Use Hx: No Substance Use Type: None Hx Substance Use Treatment: No Review of Systems - Review of Systems Able to Perform ROS?: Yes Is the patient limited Hungarian proficient: No Constitutional: No: Symptoms Reported HEENTM: No: Symptoms Reported ABD/GI: No: Symptoms Reported : No: Symptoms Reported Integumentary: No: Symptoms Reported Neurological: No: Symptoms reported All Other Systems: Reviewed and Negative *Physical Exam - Vital Signs Last Vital Signs Temp Pulse Resp BP Pulse Ox 98.7 F 76 18 111/79 99 05/04/18 16:24 05/04/18 16:24 05/04/18 16:24 05/04/18 16:24 05/04/18 16:24 - Physical Exam General Appearance: Yes: Nourished, Appropriately Dressed, Apparent Distress, Mild Distress. No: Intoxicated HEENT: positive: Other (very dysarthric) Respiratory/Chest: positive: Lungs Clear, Normal Breath Sounds. negative: Chest Tender, Respiratory Distress Cardiovascular: positive: Regular Rhythm, Regular Rate, S1, S2 Gastrointestinal/Abdominal: positive: Normal Bowel Sounds, Flat, Soft. negative : Tender Musculoskeletal: positive: Normal Inspection. negative: CVA Tenderness Extremity: positive: Normal Capillary Refill, Normal Inspection, Normal Range of Motion Integumentary: positive: Normal Color, Dry, Warm Neurologic: positive: Fully Oriented, Alert, Depressed Affect, Other (tearful) Moderate Sedation - Procedure Monitoring Vital Signs: Procedure Monitoring Vital Signs Temperature 98.7 F 05/04/18 16:24 Pulse Rate 76 05/04/18 16:24 Respiratory Rate 18 05/04/18 16:24 Blood Pressure 111/79 05/04/18 16:24 O2 Sat by Pulse Oximetry (%) 99 05/04/18 16:24 ED Treatment Course - LABORATORY CBC & Chemistry Diagram: 05/04/18 17:06 05/04/18 17:06 Medical Decision Making - Medical Decision Making 05/04/18 17:21 Was able to communicate with patient through written phrases. PAtient was able to express that he was depressed, tried to commit suicide today by taking pill. Refused to say what. Will perform a full tox workup. Patient doesn't have any signs of overdose. EKG shows normal sinus rhythm, non specific ST and T wave abnormality. Ordered 1:[address] Manzo. 05/04/18 19:48 Admitted to telemetry under Dr. Gomez *DC/Admit/Observation/Transfer Diagnosis at time of Disposition: Suicidal ideation - Discharge Dispostion Decision to Admit order: Yes - Referrals Referrals: Carlitos Ribeiro MD [Primary Care Provider] - - Patient Instructions - Post Discharge Activity
--- NOTE | 2018-05-04 17:01 | PDOC ---
Attending Attestation - Resident Resident Name: Terry Goins - ED Attending Attestation I have performed the following: I have examined & evaluated the patient, The case was reviewed & discussed with the resident, I agree w/resident's findings & plan, Exceptions are as noted - HPI HPI: 05/04/18 16:59 72 yo male p/w suicidal ideology .He states he took a bunch of pills but will it not say which pills. He lives alone w an aide. He is mute and deaf and communicates by writing. - Physicial Exam PE: 05/04/18 19:10 elderly 72 yo male resting on the gurney and he is eating crackles head ncat eyes eomi neck supple lungs no wheezing cvs [id number] and protuberant,nontender ext no deformities skin warm and dry neuro alert,conversant psych tearful,depressed - Medical Decision Making 05/04/18 19:12 pt reports wanting to kill himself by taking multiple pills he refuses to disclose what pills he took psych Dr Manzo contacted and he will eval pt in the am 05/04/18 19:57 pt admitted for monitoring
[2018-05-04 18:03] LABS: ALBUMIN 3.8 g/dl (3.4-5.0); ALK PHOS 59 U/L (45-117); ANION GAP 8 MMOL/L (8-16); BILIRUBIN,TOTAL 0.5 mg/dL (0.2-1); BLOOD UREA NITROGEN 19 mg/dL (7-18); CALCIUM 9.4 mg/dL (8.5-10.1); CHLORIDE 102 mmol/L (98-107); CO2 28 mmol/L (21-32); GLUCOSE,RANDOM 86 mg/dL (74-106); POTASSIUM 4.2 mmol/L (3.5-5.1); SGOT/AST 28 U/L (15-37); SGPT/ALT 44 U/L (13-61); SODIUM 139 mmol/L (136-145); TOT PROT 7.3 g/dl (6.4-8.2)
[2018-05-04 18:04] LABS: BASO % 0.6 % (0-2.0); EOS % 2.9 % (0-4.5); HEMATOCRIT 46.5 % (35.4-49); HEMOGLOBIN 15.6 GM/dL (11.7-16.9); LYMPH % 26.7 % (8-40); MCH 30.1 pg (25.7-33.7); MCHC 33.6 g/dl (32.0-35.9); MEAN CELL VOLUME 89.4 fl (80-96); MEAN PLT VOLUME 8.9 fl (7.5-11.1); MONO % 9.4 % (3.8-10.2); NEUT % 60.4 % (42.8-82.8); PLATELET COUNT 269 K/MM3 (134-434); RDW 13.2 % (11.9-15.9); WHITE BLOOD COUNT 8.8 K/mm3 (4.0-10.0)
--- NOTE | 2018-05-04 20:08 | HP ---
CHIEF COMPLAINT: Suicidal ideation PCP: Quintin HISTORY OF PRESENT ILLNESS: 72 year old with a past medical history of HTN, HLD, hearing impairment, anxiety , depression, and DM brought to hospital because he was thought to be depressed and lonely while at home as per his home health aid. As per ER staff he expressed suicidal ideation with questionable pill ingestion. Pt was able to communicate with ER staff through writing on paper. ER course was notable for: (1) IV fluid hydration (2) EKG (3) Recent Travel: no PAST MEDICAL HISTORY: HTN, HLD, hearing impairment, anxiety, depression, and DM PAST SURGICAL HISTORY: Social History: Smoking: no Alcohol: no Drugs: no Family History: unknown Allergies No Known Allergies Allergy (Verified 06/07/17 09:35) HOME MEDICATIONS: Home Medications Medication Instructions Recorded Aspirin Coated [Ecotrin -] 81 mg PO DAILY 08/08/15 Docusate Sodium [Colace -] 100 mg PO TID 08/08/15 Ezetimibe [Zetia] 10 mg PO DAILY 08/08/15 Metoprolol Tartrate [Lopressor -] 25 mg PO BID 08/08/15 Sertraline HCl [Zoloft -] 25 mg PO DAILY 08/08/15 Simvastatin [Zocor -] 20 mg PO HS 08/08/15 REVIEW OF SYSTEMS - unable to obtain as patient is deaf/mute PHYSICAL EXAMINATION Vital Signs - 24 hr 05/04/18 16:24 Temperature 98.7 F Pulse Rate 76 Respiratory 18 Rate Blood Pressure 111/79 O2 Sat by Pulse 99 Oximetry (%) GENERAL: Awake, alert HEAD: Normal with no signs of trauma. EYES: Pupils equal, round and reactive to light, extraocular movements intact, sclera anicteric, conjunctiva clear. No lid lag. EARS, NOSE, THROAT: Ears normal, nares patent, oropharynx clear without exudates. Moist mucous membranes. NECK: Normal range of motion, supple without lymphadenopathy, JVD, or masses. LUNGS: Breath sounds equal, clear to auscultation bilaterally. No wheezes, and no crackles. No accessory muscle use. HEART: Regular rate and rhythm, normal S1 and S2 without murmur, rub or gallop. vertical scar on chest ABDOMEN: Soft, nontender, not distended, normoactive bowel sounds, no guarding, no rebound, no masses. No hepatomegaly or splenomegaly. MUSCULOSKELETAL: Normal range of motion at all joints. No bony deformities or tenderness. No CVA tenderness. UPPER EXTREMITIES: 2+ pulses, warm, well-perfused. No cyanosis. No clubbing. No peripheral edema. LOWER EXTREMITIES: 2+ pulses, warm, well-perfused. No calf tenderness. No peripheral edema. NEURO - deaf PSYCHIATRIC: flat affect SKIN: Warm, dry, normal turgor, no rashes or lesions noted, normal capillary refill. Laboratory Results - last 24 hr 05/04/18 05/04/18 05/04/18 17:06 17:06 17:06 WBC 8.8 RBC 5.20 Hgb 15.6 Hct 46.5 MCV 89.4 MCH 30.1 MCHC 33.6 RDW 13.2 Plt Count 269 D MPV 8.9 Absolute Neuts (auto) 5.3 Neutrophils % 60.4 Lymphocytes % 26.7 D Monocytes % 9.4 Eosinophils % 2.9 D Basophils % 0.6 Nucleated RBC % 0 Sodium 139 Potassium 4.2 Chloride 102 Carbon Dioxide 28 Anion Gap 8 BUN 19 H Creatinine 1.0 Creat Clearance w eGFR > 60 Random Glucose 86 Calcium 9.4 Total Bilirubin 0.5 AST 28 ALT 44 Alkaline Phosphatase 59 Total Protein 7.3 Albumin 3.8 Salicylates < 1.7 L Acetaminophen < 2.0 L EKG reviewed, qtc was wnl ASSESSMENT/PLAN: #72yo man with reported suicidal ideation and possible unknown substance ingestion. VS are wnl. Chemistry is wnl. Urine toxicology, salicylates, and tylenol levels were negative. Patient is for admission to telemetry. -telemetry -NPO for now -IV fluid hydration -check electrolytes and replete prn -one to one observation for suicidal ideation -psychiatry evaluation -c/w ASA -heparin sc for dvt ppx - Visit type - Emergency Visit Emergency Visit: Yes ED Registration Date: 05/04/18 Care time: The patient presented to the Emergency Department on the above date and was hospitalized for further evaluation of their emergent condition. - New Patient This patient is new to me today: Yes Date on this admission: 05/04/18 - Critical Care Critical Care patient: No
[2018-05-04] MEDS ORDERED: SODIUM CHLORIDE 1,000 ML IV SCH (20:15)
[2018-05-04 20:16] LABS: URINE APPEARANCE CLEAR; URINE BILIRUBIN NEGATIVE (<2.0 mg/dL); URINE COLOR DKYELLOW; URINE GLUCOSE (UA) NEGATIVE (NEGATIVE); URINE KETONE 1+ (NEGATIVE); URINE LEUK ESTERASE NEGATIVE (NEGATIVE); URINE NITRITE NEGATIVE (NEGATIVE); URINE PROTEIN NEGATIVE (NEGATIVE); URINE UROBILINOGEN NEGATIVE mg/dL (0.2-1.0)
[2018-05-04 21:00] LABS: COCAINE, UR NEGATIVE ng/ml (CUTOFF=300); METHADONE, UR NEGATIVE ng/ml (CUTOFF=300); URINE AMPHETAMINES NEGATIVE ng/ml (CUTOFF=500); URINE BARBITURATES NEGATIVE ng/ml (CUTOFF=200); URINE BENZODIAZEPINES NEGATIVE ng/ml (CUTOFF=200)
[2018-05-04 21:01] LABS: OPIATES, URI NEGATIVE ng/ml (CUTOFF=300); PHENCYCLIDINE,URINE NEGATIVE ng/ml (CUTOFF=25)
[2018-05-04] MEDS ORDERED: METOPROLOL TARTRATE 25 MG TABLET (FP) ONE (23:25)
[2018-05-04] MEDS ORDERED: DOCUSATE SODIUM 100 MG CAPSULE (FP) PO ONE (23:26)
[2018-05-04] MEDS ORDERED: HEPARIN NA (PORCINE) 5,000 UNITS/ML 1ML VIAL ONE (23:26)
[2018-05-04] MEDS: METOPROLOL TARTRATE 25 MG TABLET (FP) PO SCH (23:29)
[2018-05-04] MEDS: HEPARIN NA (PORCINE) 5,000 UNITS/ML 1ML VIAL SQ SCH (23:29)
[2018-05-04] MEDS: DOCUSATE SODIUM 100 MG CAPSULE (FP) PO SCH (23:29)
[2018-05-05 02:23] VITALS: BMI 26.9
[2018-05-05] MEDS: DOCUSATE SODIUM 100 MG CAPSULE (FP) PO SCH ×3 (06:18→22:33)
[2018-05-05 07:01] LABS: BASO % 0.7 % (0-2.0); EOS % 3.8 % (0-4.5); HEMATOCRIT 39.8 % (35.4-49); HEMOGLOBIN 14.3 GM/dL (11.7-16.9); LYMPH % 31.7 % (8-40); MCH 32.1 pg (25.7-33.7); MEAN CELL VOLUME 89.3 fl (80-96); MEAN PLT VOLUME 8.9 fl (7.5-11.1); MONO % 7.3 % (3.8-10.2); NEUT % 56.5 % (42.8-82.8); PLATELET COUNT 238 K/MM3 (134-434); RBC 4.46 M/mm3 (4.00-5.60); RDW 12.9 % (11.9-15.9); WHITE BLOOD COUNT 6.8 K/mm3 (4.0-10.0)
[2018-05-05 07:26] LABS: ANION GAP 6 MMOL/L (8-16); BLOOD UREA NITROGEN 19 mg/dL (7-18); CALCIUM 8.5 mg/dL (8.5-10.1); CHLORIDE 108 mmol/L (98-107); CO2 27 mmol/L (21-32); GLUCOSE,RANDOM 100 mg/dL (74-106); SODIUM 141 mmol/L (136-145)
[2018-05-05] MEDS: ASPIRIN COATED 81 MG TABLET.EC PO SCH (09:04)
[2018-05-05] MEDS: METOPROLOL TARTRATE 25 MG TABLET (FP) PO SCH ×2 (09:04→22:33)
[2018-05-05] MEDS: HEPARIN NA (PORCINE) 5,000 UNITS/ML 1ML VIAL SQ SCH ×2 (09:04→22:33)
--- NOTE | 2018-05-05 11:40 | PN ---
Progress Note (short form) - Note Progress Note: Vital Signs - 24 hr 05/04/18 05/05/18 05/05/18 16:24 01:20 01:45 Temperature 98.7 F 97.8 F 98.2 F Pulse Rate 76 59 L Pulse Rate [ 59 L Right Apical] Respiratory 18 18 18 Rate Blood Pressure 111/79 130/74 Blood Pressure 136/70 [Right Arm] O2 Sat by Pulse 99 97 98 Oximetry (%) 05/05/18 05/05/18 01:50 06:11 Temperature 98.2 F 98.1 F Pulse Rate 59 L 66 Pulse Rate [ Right Apical] Respiratory 18 18 Rate Blood Pressure 130/74 123/69 Blood Pressure [Right Arm] O2 Sat by Pulse Oximetry (%) Current Medications Generic Name Dose Route Start Last Admin Trade Name Emilq PRN Reason Stop Dose Admin Aspirin 81 mg 05/05/18 10:00 05/05/18 09:04 Ecotrin - PO 81 mg DAILY MISSY Administration Docusate Sodium 100 mg 05/04/18 22:00 05/05/18 06:18 Colace - PO 100 mg TID MISSY Administration Heparin Sodium (Porcine) 5,000 unit 05/04/18 22:00 05/05/18 09:04 Heparin - SQ 5,000 unit BID MISSY Administration Metoprolol Tartrate 25 mg 05/04/18 22:00 05/05/18 09:04 Lopressor - PO 25 mg BID MISSY Administration Laboratory Results - last 24 hr 05/04/18 05/04/18 05/04/18 17:06 17:06 17:06 WBC 8.8 RBC 5.20 Hgb 15.6 Hct 46.5 MCV 89.4 MCH 30.1 MCHC 33.6 RDW 13.2 Plt Count 269 D MPV 8.9 Absolute Neuts (auto) 5.3 Neutrophils % 60.4 Lymphocytes % 26.7 D Monocytes % 9.4 Eosinophils % 2.9 D Basophils % 0.6 Nucleated RBC % 0 Sodium 139 Potassium 4.2 Chloride 102 Carbon Dioxide 28 Anion Gap 8 BUN 19 H Creatinine 1.0 Creat Clearance w eGFR > 60 POC Glucometer Random Glucose 86 Calcium 9.4 Magnesium Total Bilirubin 0.5 AST 28 ALT 44 Alkaline Phosphatase 59 Total Protein 7.3 Albumin 3.8 Urine Color Urine Appearance Urine pH Ur Specific [place] Urine Protein Urine Glucose (UA) Urine Ketones Urine Blood Urine Nitrite Urine Bilirubin Urine Urobilinogen Ur Leukocyte Esterase Salicylates < 1.7 L Opiates Screen Methadone Screen Acetaminophen < 2.0 L Barbiturate Screen Phencyclidine Screen Ur Amphetamines Screen MDMA (Ecstasy) Screen Benzodiazepines Screen Cocaine Screen U Marijuana (THC) Screen 05/04/18 05/04/18 05/05/18 20:02 20:02 02:59 WBC RBC Hgb Hct MCV MCH MCHC RDW Plt Count MPV Absolute Neuts (auto) Neutrophils % Lymphocytes % Monocytes % Eosinophils % Basophils % Nucleated RBC % Sodium Potassium Chloride Carbon Dioxide Anion Gap BUN Creatinine Creat Clearance w eGFR POC Glucometer 95 Random Glucose Calcium Magnesium Total Bilirubin AST ALT Alkaline Phosphatase Total Protein Albumin Urine Color Dkyellow Urine Appearance Clear Urine pH 5.0 Ur Specific [place] 1.028 Urine Protein Negative Urine Glucose (UA) Negative Urine Ketones 1+ H Urine Blood Negative Urine Nitrite Negative Urine Bilirubin Negative Urine Urobilinogen Negative Ur Leukocyte Esterase Negative Salicylates Opiates Screen Negative Methadone Screen Negative Acetaminophen Barbiturate Screen Negative Phencyclidine Screen Negative Ur Amphetamines Screen Negative MDMA (Ecstasy) Screen Negative Benzodiazepines Screen Negative Cocaine Screen Negative U Marijuana (THC) Screen Negative 05/05/18 05/05/18 06:25 06:25 WBC 6.8 RBC 4.46 Hgb 14.3 Hct 39.8 MCV 89.3 MCH 32.1 MCHC 36.0 H RDW 12.9 Plt Count 238 MPV 8.9 Absolute Neuts (auto) 3.8 Neutrophils % 56.5 Lymphocytes % 31.7 Monocytes % 7.3 Eosinophils % 3.8 Basophils % 0.7 Nucleated RBC % 0 Sodium 141 Potassium 4.0 Chloride 108 H Carbon Dioxide 27 Anion Gap 6 L BUN 19 H Creatinine 1.0 Creat Clearance w eGFR > 60 POC Glucometer Random Glucose 100 Calcium 8.5 Magnesium 2.0 Total Bilirubin AST ALT Alkaline Phosphatase Total Protein Albumin Urine Color Urine Appearance Urine pH Ur Specific [place] Urine Protein Urine Glucose (UA) Urine Ketones Urine Blood Urine Nitrite Urine Bilirubin Urine Urobilinogen Ur Leukocyte Esterase Salicylates Opiates Screen Methadone Screen Acetaminophen Barbiturate Screen Phencyclidine Screen Ur Amphetamines Screen MDMA (Ecstasy) Screen Benzodiazepines Screen Cocaine Screen U Marijuana (THC) Screen
--- NOTE | 2018-05-05 14:53 | CON.PSY ---
Psychiatry Consult Chief Complaint: 72 year old male with Hearing imapirment and speech impediment has ahistory of depression and anxiety, came to ER with ? Vague suicidal ideas, No Plans or Behaviour reprted. Patient has a home health aid. Symptoms: reports: Depressed Mood, Anhedonia - Previous Psychiatric Treatment Outpatient: More than 6 mos ago - Reason for Previous Treatment Reason for Previous Treatment: Major Depression, Anxiety or Panic Disorder - Current Medications Current Medications: Active Medications Aspirin (Ecotrin -) 81 mg PO DAILY [facility] Last Admin: 05/05/18 09:04 Dose: 81 mg Docusate Sodium (Colace -) 100 mg PO TID [facility] Last Admin: 05/05/18 13:37 Dose: 100 mg Heparin Sodium (Porcine) (Heparin -) 5,000 unit SQ BID [facility] Last Admin: 05/05/18 09:04 Dose: 5,000 unit Metoprolol Tartrate (Lopressor -) 25 mg PO BID [facility] Last Admin: 05/05/18 09:04 Dose: 25 mg - Allergies Allergies: Allergies Allergy/AdvReac Type Severity Reaction Status Date / Time No Known Allergies Allergy Verified 06/07/17 09:35 - Current Living Status Usual Living Arrangement: Alone - Current Mental Status Evaluation Appearance: Disheveled Attitude: Guarded - Affect Affect: Constrictive Appropriateness: Appropriate to Content - Mood Mood: Depressed - Speech/Language Expressive: Coherent - Psychomotor Activity Psychomotor Activity: Slowed - Thought Process Thought Process: Intact - Thought Content Hallucinations: Absent Delusions: Absent - Self Perception Self Perception: No Impairment - Cognition Attention: Alert Memory, Immediate Recall: Intact Memory, Short Term: 2/3 Memory, Remote with Promptin/3 - Concentration Serial Sevens Intact: No Simple Calculations Intact: No - Abstraction Proverb Interpretation: Impaired Judgement: Minimally Impaired - Insight Insight: Impaired - Impulse Control Impulse Control: Minimally Impaired - Suicidal Ideation Suicidal Ideation: No Plan: Patient responded by putting his Thumbs down when I specifically asked if he wanted to or Kill himself. - Homicidal Ideation Homicidal Ideation: No
--- NOTE | 2018-05-05 14:54 | PN ---
Progress Note (short form) - Note Progress Note: Continue with 1:1 until tomorrow.
--- NOTE | 2018-05-05 16:29 | EKG ---
Test Reason : Blood Pressure : / mmHG Vent. Rate : 075 BPM Atrial Rate : 075 BPM P-R Int : 150 ms QRS Dur : 086 ms QT Int : 374 ms P-R-T Axes : 048 023 068 degrees QTc Int : 417 ms NORMAL SINUS RHYTHM NONSPECIFIC ST AND T WAVE ABNORMALITY ABNORMAL ECG Confirmed by MD ALMARAZ GREGORY ([id number]) on 05/05/2018 4:29:20 PM Referred By: Confirmed By:ANNIA ALMARAZ MD
--- NOTE | 2018-05-05 20:32 | CON.PSL ---
Psychology Consult Consult Specialty:: Clinical Psychology History Provided By: Patient, Medical Record (The patient was virtually unable to communicate other than head nodding with approval or shaking in disagreement. ) Limitations to Obtaining History: Language Barrier Current Medications: Active Medications Aspirin (Ecotrin -) 81 mg PO DAILY [facility] Last Admin: 05/05/18 09:04 Dose: 81 mg Docusate Sodium (Colace -) 100 mg PO TID [facility] Last Admin: 05/05/18 13:37 Dose: 100 mg Escitalopram Oxalate (Lexapro -) 5 mg PO DAILY [facility] Heparin Sodium (Porcine) (Heparin -) 5,000 unit SQ BID [facility] Last Admin: 05/05/18 09:04 Dose: 5,000 unit Metoprolol Tartrate (Lopressor -) 25 mg PO BID [facility] Last Admin: 05/05/18 09:04 Dose: 25 mg Allergies: Allergies Allergy/AdvReac Type Severity Reaction Status Date / Time No Known Allergies Allergy Verified 06/07/17 09:35 Does patient have pain?: Yes Pain Location Body Site: Unspecified Pain Description: Non-Descriptive - Family History Family History: Unable to Obtain Current Medical Exam-Psy Attention: Alert (Would not respond to qustions verbally and even it was difficult for him to respond with gestures do his being uncoopertative. Later he was seen again with his sitter. She indicated that he spoke to her in [place]ian without difficulty.) Orientation: Person Expressive: Other (He hardly offered any verbal feedback or response.As the examiner was leaving he suddenly spoke in very limited [place]ib[place]ian asking if he could keep the form I gave to him.) Problem List - Problem (1) Depressed Code(s): F32.9 - MAJOR DEPRESSIVE DISORDER, SINGLE EPISODE, UNSPECIFIED Qualifiers: Depression Type: major depressive disorder Active/Remission status: currently active Psychotic features: without psychotic features (2) Anxiety Code(s): F41.9 - ANXIETY DISORDER, UNSPECIFIED (3) Borderline personality disorder in adult Code(s): F60.3 - BORDERLINE PERSONALITY DISORDER Assessment/Plan * This patient appeared to be calm and displayed a somewhat dysthymic affect. It was difficult for him to communicate as his primary language is apparently [place]. He was given a sheet with questions on the hope that he could read [place]ian. He may have been able to comprehend some of the written questions as he responded to them with head nods when in agreement and shaking his hand when he was in disagreement with the questions. When asked if he wanted to , he nodded his head in agreement. It was interesting that after meeting his sitter, he evidently spoke with her inn shot statements. He may indeed speak [place]ian. I confronted him (in a kind manner) and he smiled sought of admitting to understanding and being able to converse in [place]ian. Further attempts at conversing with him will be conducted while he remains here. He is at risk of harming himself and still requires a 1:1 aide. The patient should be seen by Dr. Manzo for consideration of discharge to a psychiatric facility.
[2018-05-06] MEDS: DOCUSATE SODIUM 100 MG CAPSULE (FP) PO SCH ×3 (06:29→22:52)
[2018-05-06] MEDS: ASPIRIN COATED 81 MG TABLET.EC PO SCH (10:19)
[2018-05-06] MEDS: ESCITALOPRAM OXALATE 10 MG TABLET (FP) PO SCH (10:19)
[2018-05-06] MEDS: METOPROLOL TARTRATE 25 MG TABLET (FP) PO SCH ×2 (10:20→22:52)
[2018-05-06] MEDS: HEPARIN NA (PORCINE) 5,000 UNITS/ML 1ML VIAL SQ SCH ×2 (10:20→22:53)
--- NOTE | 2018-05-06 12:00 | PN ---
Progress Note (short form) - Note Progress Note: Vital Signs - 24 hr Pleasant Says he feels fine He is able to read [place] and respond to it by saying yes or no 05/05/18 05/05/18 05/06/18 17:00 21:00 02:43 Temperature 98.0 F 98.2 F Pulse Rate 70 68 Respiratory 18 18 Rate Blood Pressure 99/50 L 101/65 O2 Sat by Pulse 94 L Oximetry (%) 05/06/18 05/06/18 05:29 10:00 Temperature 98 F 98.0 F Pulse Rate 59 L 78 Respiratory 18 18 Rate Blood Pressure 116/77 115/69 O2 Sat by Pulse Oximetry (%) Current Medications Generic Name Dose Route Start Last Admin Trade Name Freq PRN Reason Stop Dose Admin Aspirin 81 mg 05/05/18 10:00 05/06/18 10:19 Ecotrin - PO 81 mg DAILY [facility] Administration Docusate Sodium 100 mg 05/04/18 22:00 05/06/18 06:29 Colace - PO 100 mg TID [facility] Administration Escitalopram Oxalate 5 mg 05/06/18 10:00 05/06/18 10:19 Lexapro - PO 5 mg DAILY [facility] Administration Heparin Sodium (Porcine) 5,000 unit 05/04/18 22:00 05/06/18 10:20 Heparin - SQ 5,000 unit BID [facility] Administration Metoprolol Tartrate 25 mg 05/04/18 22:00 05/06/18 10:20 Lopressor - PO 25 mg BID [facility] Administration Laboratory Results - last 24 hr 05/06/18 03:25 POC Glucometer 117 S1 S2 RRR Lungs clear Abd- soft, NT No edema left hand contracted PLAN On 1:1 Psych and PSYCHOLOGY eval noted Does not say he is suicidal He is depressed because he is lonely will need rehab Problem List - Problems (1) Anxiety Code(s): F41.9 - ANXIETY DISORDER, UNSPECIFIED (2) Borderline personality disorder in adult Code(s): F60.3 - BORDERLINE PERSONALITY DISORDER (3) Depressed Code(s): F32.9 - MAJOR DEPRESSIVE DISORDER, SINGLE EPISODE, UNSPECIFIED Qualifiers: Depression Type: major depressive disorder Active/Remission status: currently active Psychotic features: without psychotic features
[2018-05-07] MEDS: DOCUSATE SODIUM 100 MG CAPSULE (FP) PO SCH ×3 (05:18→21:24)
[2018-05-07] MEDS ORDERED: PT OWN MED DRAWER 7, Y5N ONE (09:48)
[2018-05-07] MEDS: HEPARIN NA (PORCINE) 5,000 UNITS/ML 1ML VIAL SQ SCH ×2 (09:50→21:24)
[2018-05-07] MEDS: METOPROLOL TARTRATE 25 MG TABLET (FP) PO SCH ×2 (09:50→21:24)
[2018-05-07] MEDS: ASPIRIN COATED 81 MG TABLET.EC PO SCH (09:50)
[2018-05-07] MEDS: ESCITALOPRAM OXALATE 10 MG TABLET (FP) PO SCH (09:51)
--- NOTE | 2018-05-07 16:30 | PN ---
Progress Note (short form) - Note Progress Note: Vital Signs - 24 hr Pleasant off 1:1 Vital Signs - 24 hr 05/06/18 05/06/18 05/07/18 17:00 19:45 02:00 Temperature 98.0 F 98 F 98.4 F Pulse Rate 63 61 68 Respiratory 18 18 18 Rate Blood Pressure 104/63 111/60 101/62 O2 Sat by Pulse Oximetry (%) 05/07/18 05/07/18 05/07/18 05:00 09:00 14:44 Temperature 98.1 F 99.3 F 98.5 F Pulse Rate 53 L 67 56 L Respiratory 18 18 20 Rate Blood Pressure 101/54 L 149/65 O2 Sat by Pulse 95 Oximetry (%) Current Medications Generic Name Dose Route Start Last Admin Trade Name Marvin PRN Reason Stop Dose Admin Aspirin 81 mg 05/07/18 10:00 05/07/18 09:50 Ecotrin - PO 81 mg DAILY [facility] Administration Docusate Sodium 100 mg 05/07/18 14:00 05/07/18 14:15 Colace - PO 100 mg TID [facility] Administration Escitalopram Oxalate 5 mg 05/06/18 10:00 05/07/18 09:51 Lexapro - PO 5 mg DAILY [facility] Administration Heparin Sodium (Porcine) 5,000 unit 05/07/18 10:00 05/07/18 09:50 Heparin - SQ 5,000 unit BID [facility] Administration Metoprolol Tartrate 25 mg 05/07/18 10:00 05/07/18 09:50 Lopressor - PO 25 mg BID [facility] Administration Laboratory Results - last 24 hr 05/07/18 05/07/18 06:00 14:24 POC Glucometer 126 120 S1 S2 RRR Lungs clear Abd- soft, NT No edema left hand contracted PLAN off 1:1 Psych and PSYCHOLOGY eval noted Does not say he is suicidal He is depressed because he is lonely will need rehab Problem List - Problems (1) Anxiety Code(s): F41.9 - ANXIETY DISORDER, UNSPECIFIED (2) Borderline personality disorder in adult Code(s): F60.3 - BORDERLINE PERSONALITY DISORDER (3) Depressed Code(s): F32.9 - MAJOR DEPRESSIVE DISORDER, SINGLE EPISODE, UNSPECIFIED Qualifiers: Depression Type: major depressive disorder Active/Remission status: currently active Psychotic features: without psychotic features
[2018-05-08] MEDS: DOCUSATE SODIUM 100 MG CAPSULE (FP) PO SCH ×2 (05:28→15:50)
[2018-05-08] MEDS: ASPIRIN COATED 81 MG TABLET.EC PO SCH (11:14)
[2018-05-08] MEDS: METOPROLOL TARTRATE 25 MG TABLET (FP) PO SCH ×2 (11:14→22:42)
[2018-05-08] MEDS: HEPARIN NA (PORCINE) 5,000 UNITS/ML 1ML VIAL SQ SCH (11:14)
[2018-05-08] MEDS: ESCITALOPRAM OXALATE 10 MG TABLET (FP) PO SCH (11:14)
--- NOTE | 2018-05-08 13:19 | PN ---
Progress Note (short form) - Note Progress Note: Vital Signs - 24 hr Pleasant off 1:1 Vital Signs - 24 hr 05/08/18 05/08/18 05/08/18 06:26 09:00 11:13 Temperature 98.1 F 97.9 F Pulse Rate 57 L 68 Respiratory 18 18 18 Rate Blood Pressure 103/51 L 116/68 O2 Sat by Pulse 94 L Oximetry (%) 05/08/18 05/08/18 05/08/18 14:46 18:56 20:49 Temperature 98.2 F 98.1 F Pulse Rate 59 L 89 56 L Respiratory 18 18 18 Rate Blood Pressure 104/61 129/75 105/48 L O2 Sat by Pulse Oximetry (%) Current Medications Generic Name Dose Route Start Last Admin Trade Name Marvin PRN Reason Stop Dose Admin Aspirin 81 mg 05/07/18 10:00 05/08/18 11:14 Ecotrin - PO 81 mg DAILY [facility] Administration Docusate Sodium 100 mg 05/07/18 14:00 05/08/18 15:50 Colace - PO 100 mg TID [facility] Administration Escitalopram Oxalate 5 mg 05/06/18 10:00 05/08/18 11:14 Lexapro - PO 5 mg DAILY [facility] Administration Heparin Sodium (Porcine) 5,000 unit 05/07/18 10:00 05/08/18 11:14 Heparin - SQ 5,000 unit BID [facility] Administration Metoprolol Tartrate 25 mg 05/07/18 10:00 05/08/18 22:42 Lopressor - PO Not Given BID [facility] S1 S2 RRR Lungs clear Abd- soft, NT No edema left hand contracted PLAN off 1:1 Psych and PSYCHOLOGY follow up Does not say he is suicidal He is depressed because he is lonely will need rehab Problem List - Problems (1) Anxiety Code(s): F41.9 - ANXIETY DISORDER, UNSPECIFIED (2) Borderline personality disorder in adult Code(s): F60.3 - BORDERLINE PERSONALITY DISORDER (3) Depressed Code(s): F32.9 - MAJOR DEPRESSIVE DISORDER, SINGLE EPISODE, UNSPECIFIED Qualifiers: Depression Type: major depressive disorder Active/Remission status: currently active Psychotic features: without psychotic features
[2018-05-09] MEDS: DOCUSATE SODIUM 100 MG CAPSULE (FP) PO SCH ×4 (03:37→21:04)
[2018-05-09] MEDS: HEPARIN NA (PORCINE) 5,000 UNITS/ML 1ML VIAL SQ SCH ×3 (03:37→21:04)
[2018-05-09] MEDS: ESCITALOPRAM OXALATE 10 MG TABLET (FP) PO SCH (10:40)
[2018-05-09] MEDS: ASPIRIN COATED 81 MG TABLET.EC PO SCH (10:42)
[2018-05-09] MEDS: METOPROLOL TARTRATE 25 MG TABLET (FP) PO SCH ×2 (10:42→21:04)
--- NOTE | 2018-05-09 11:23 | PN ---
Progress Note (short form) - Note Progress Note: The patient was seen today. He was smiling at times when we discussed TV programs and movies he enjoys. He was very content in particular when we mentioned the Yankees, Giants and other sports. He also admitted to enjoying good meals. When asked how he was feeling and whether he had suicidal thoughts, his affect changed to depressed and he admitted to wanting to . However, when asked how he might take his life he responded by stating that he is never alone. Many of his responses were provided in writing as he experienced difficulty verbalizing due to issues with his mouth-perhaps not having dentures , for example. It still seems that he is despondent as his son (according to his response as best as it could be understood) does not visit him. He also had made a note about a boyfriend and when questioned he was upset that the boyfriend does not visit. Although he may not present as an active danger to himself at this point, he still has suicidal ideation and accepts the need to have at least one person as a kidney puller with him. Discharge plans should provide for this contingency. Problem List - Problems (1) Depressed Code(s): F32.9 - MAJOR DEPRESSIVE DISORDER, SINGLE EPISODE, UNSPECIFIED Qualifiers: Depression Type: major depressive disorder Active/Remission status: currently active Psychotic features: without psychotic features (2) Anxiety Code(s): F41.9 - ANXIETY DISORDER, UNSPECIFIED (3) Borderline personality disorder in adult Code(s): F60.3 - BORDERLINE PERSONALITY DISORDER
--- NOTE | 2018-05-09 13:18 | PN ---
Progress Note (short form) - Note Progress Note: Pt seen/ examined chart reviewed happy to see me !! comfortable denies pain mood better Vital Signs Temp 98.0 F 05/09/18 06:00 Pulse 58 L 05/09/18 06:00 Resp 18 05/09/18 06:00 BP 108/60 05/09/18 06:00 Pulse Ox 94 L 05/08/18 21:00 Intake & Output 05/08/18 05/09/18 05/09/18 23:59 11:59 23:59 Intake Total 500 260 Balance 500 260 Intake: Oral 500 260 Other: Voiding Method Toilet Toilet # Unmeasured Voids Void 1 2 Bowel Movement No No Active Medications Aspirin (Ecotrin -) 81 mg PO DAILY [facility] Last Admin: 05/09/18 10:42 Dose: 81 mg Docusate Sodium (Colace -) 100 mg PO TID [facility] Last Admin: 05/09/18 06:29 Dose: 100 mg Escitalopram Oxalate (Lexapro -) 5 mg PO DAILY [facility] Last Admin: 05/09/18 10:40 Dose: 5 mg Heparin Sodium (Porcine) (Heparin -) 5,000 unit SQ BID [facility] Last Admin: 05/09/18 10:42 Dose: 5,000 unit Metoprolol Tartrate (Lopressor -) 25 mg PO BID [facility] Last Admin: 05/09/18 10:42 Dose: 25 mg CBC, BMP 05/05/18 06:25 05/05/18 06:25 Physical Exam S1 S2 RRR Lungs clear Abd- soft, NT No edema left hand contracted Neuro- Pre- existinf defecits PLAN stable continue present care will need rehab medically stable when bed available discussed with nursing staff also will follow Problem List - Problems (1) Anxiety Code(s): F41.9 - ANXIETY DISORDER, UNSPECIFIED (2) Borderline personality disorder in adult Code(s): F60.3 - BORDERLINE PERSONALITY DISORDER (3) Depressed Code(s): F32.9 - MAJOR DEPRESSIVE DISORDER, SINGLE EPISODE, UNSPECIFIED Qualifiers: Depression Type: major depressive disorder Active/Remission status: currently active Psychotic features: without psychotic features
[2018-05-10] MEDS: DOCUSATE SODIUM 100 MG CAPSULE (FP) PO SCH ×3 (06:15→21:02)
[2018-05-10] MEDS: ESCITALOPRAM OXALATE 10 MG TABLET (FP) PO SCH (11:25)
[2018-05-10] MEDS: METOPROLOL TARTRATE 25 MG TABLET (FP) PO SCH ×2 (11:26→21:01)
[2018-05-10] MEDS: ASPIRIN COATED 81 MG TABLET.EC PO SCH (11:27)
[2018-05-10] MEDS: HEPARIN NA (PORCINE) 5,000 UNITS/ML 1ML VIAL SQ SCH ×2 (11:27→21:02)
--- NOTE | 2018-05-10 12:15 | PN ---
Progress Note (short form) - Note Progress Note: Pt seen/ examined comfortable denies pain mood stable Vital Signs Temp 98.4 F 05/10/18 11:39 Pulse 74 05/10/18 11:39 Resp 19 05/10/18 11:39 BP 115/71 05/10/18 11:39 Pulse Ox 95 05/09/18 21:00 Intake & Output 05/09/18 05/10/18 05/10/18 23:59 11:59 23:59 Intake Total 1100 750 Balance 1100 750 Intake: Oral 1100 750 Other: Voiding Method Toilet # Unmeasured Voids Void 2 1 Bowel Movement No Active Medications Aspirin (Ecotrin -) 81 mg PO DAILY [facility] Last Admin: 05/09/18 10:42 Dose: 81 mg Docusate Sodium (Colace -) 100 mg PO TID [facility] Last Admin: 05/09/18 06:29 Dose: 100 mg Escitalopram Oxalate (Lexapro -) 5 mg PO DAILY [facility] Last Admin: 05/09/18 10:40 Dose: 5 mg Heparin Sodium (Porcine) (Heparin -) 5,000 unit SQ BID [facility] Last Admin: 05/09/18 10:42 Dose: 5,000 unit Metoprolol Tartrate (Lopressor -) 25 mg PO BID [facility] Last Admin: 05/09/18 10:42 Dose: 25 mg CBC, BMP 05/05/18 06:25 05/05/18 06:25 Physical Exam S1 S2 RRR Lungs clear Abd- soft, NT No edema left hand contracted Neuro- Pre- existing defecits PLAN stable continue present care will need rehab medically stable when bed available discussed with nursing staff also. Insurance issues . will follow Problem List - Problems (1) Anxiety Code(s): F41.9 - ANXIETY DISORDER, UNSPECIFIED (2) Borderline personality disorder in adult Code(s): F60.3 - BORDERLINE PERSONALITY DISORDER (3) Depressed Code(s): F32.9 - MAJOR DEPRESSIVE DISORDER, SINGLE EPISODE, UNSPECIFIED Qualifiers: Depression Type: major depressive disorder Active/Remission status: currently active Psychotic features: without psychotic features
[2018-05-11] MEDS: DOCUSATE SODIUM 100 MG CAPSULE (FP) PO SCH ×3 (05:51→21:27)
[2018-05-11] MEDS: ESCITALOPRAM OXALATE 10 MG TABLET (FP) PO SCH (10:22)
[2018-05-11] MEDS: ASPIRIN COATED 81 MG TABLET.EC PO SCH (10:22)
[2018-05-11] MEDS: HEPARIN NA (PORCINE) 5,000 UNITS/ML 1ML VIAL SQ SCH ×2 (10:22→21:27)
[2018-05-11] MEDS: METOPROLOL TARTRATE 25 MG TABLET (FP) PO SCH ×2 (10:22→21:27)
--- NOTE | 2018-05-11 12:57 | PN ---
Progress Note (short form) - Note Progress Note: Pt seen/ examined comfortable denies pain mood stable wants to go home Vital Signs Temp 97.8 F 05/11/18 10:00 Pulse 69 05/11/18 10:00 Resp 20 05/11/18 10:00 BP 120/73 05/11/18 10:00 Pulse Ox 95 05/10/18 09:00 Intake & Output 05/10/18 05/11/18 05/11/18 23:59 11:59 23:59 Intake Total 900 Balance 900 Intake: Oral 900 Other: Voiding Method Toilet Toilet # Unmeasured Voids Void 2 2 Bowel Movement No No Active Medications Aspirin (Ecotrin -) 81 mg PO DAILY [facility] Last Admin: 05/09/18 10:42 Dose: 81 mg Docusate Sodium (Colace -) 100 mg PO TID [facility] Last Admin: 05/09/18 06:29 Dose: 100 mg Escitalopram Oxalate (Lexapro -) 5 mg PO DAILY [facility] Last Admin: 05/09/18 10:40 Dose: 5 mg Heparin Sodium (Porcine) (Heparin -) 5,000 unit SQ BID [facility] Last Admin: 05/09/18 10:42 Dose: 5,000 unit Metoprolol Tartrate (Lopressor -) 25 mg PO BID [facility] Last Admin: 05/09/18 10:42 Dose: 25 mg CBC, BMP 05/05/18 06:25 05/05/18 06:25 Physical Exam S1 S2 RRR Lungs clear Abd- soft, NT No edema left hand contracted Neuro- Pre- existing defecits alert and awake PLAN stable continue present care pt wants to go home alert/ awake medically stable when issues addressed social science manager following will follow Problem List - Problems (1) Anxiety Code(s): F41.9 - ANXIETY DISORDER, UNSPECIFIED (2) Borderline personality disorder in adult Code(s): F60.3 - BORDERLINE PERSONALITY DISORDER (3) Depressed Code(s): F32.9 - MAJOR DEPRESSIVE DISORDER, SINGLE EPISODE, UNSPECIFIED Qualifiers: Depression Type: major depressive disorder Active/Remission status: currently active Psychotic features: without psychotic features
[2018-05-12] MEDS: DOCUSATE SODIUM 100 MG CAPSULE (FP) PO SCH ×3 (05:53→23:10)
[2018-05-12] MEDS: METOPROLOL TARTRATE 25 MG TABLET (FP) PO SCH ×2 (10:07→23:10)
[2018-05-12] MEDS: ESCITALOPRAM OXALATE 10 MG TABLET (FP) PO SCH (10:07)
[2018-05-12] MEDS: HEPARIN NA (PORCINE) 5,000 UNITS/ML 1ML VIAL SQ SCH ×2 (10:07→23:10)
[2018-05-12] MEDS: ASPIRIN COATED 81 MG TABLET.EC PO SCH (10:07)
--- NOTE | 2018-05-12 12:36 | PN ---
Progress Note (short form) - Note Progress Note: Pt seen/ examined comfortable denies pain mood stable walks in hallway denies suicidal/ homicidal thoughts wants to go home Vital Signs Temp 98.2 F 05/12/18 02:35 Pulse 56 L 05/12/18 06:37 Resp 18 05/12/18 06:37 BP 114/62 05/12/18 06:37 Pulse Ox 98 05/11/18 09:00 Intake & Output 05/11/18 05/12/18 05/12/18 23:59 11:59 23:59 Intake Total 1200 Balance 1200 Weight 167 lb Intake: Oral 1200 Other: Voiding Method Toilet # Unmeasured Voids Void 3 2 Height 5 ft 6 in Body Mass Index (BMI) 26.9 Active Medications Aspirin (Ecotrin -) 81 mg PO DAILY [facility] Last Admin: 05/09/18 10:42 Dose: 81 mg Docusate Sodium (Colace -) 100 mg PO TID [facility] Last Admin: 05/09/18 06:29 Dose: 100 mg Escitalopram Oxalate (Lexapro -) 5 mg PO DAILY [facility] Last Admin: 05/09/18 10:40 Dose: 5 mg Heparin Sodium (Porcine) (Heparin -) 5,000 unit SQ BID [facility] Last Admin: 05/09/18 10:42 Dose: 5,000 unit Metoprolol Tartrate (Lopressor -) 25 mg PO BID [facility] Last Admin: 05/09/18 10:42 Dose: 25 mg CBC, BMP 05/05/18 06:25 05/05/18 06:25 Physical Exam S1 S2 RRR Lungs clear Abd- soft, NT No edema left hand contracted Neuro- Pre- existing defecits alert and awake PLAN stable continue present care pt wants to go home alert/ awake medically stable when issues addressed social worker psychiatric following anticipate d/c tomorrow will follow Problem List - Problems (1) Anxiety Code(s): F41.9 - ANXIETY DISORDER, UNSPECIFIED (2) Borderline personality disorder in adult Code(s): F60.3 - BORDERLINE PERSONALITY DISORDER (3) Depressed Code(s): F32.9 - MAJOR DEPRESSIVE DISORDER, SINGLE EPISODE, UNSPECIFIED Qualifiers: Depression Type: major depressive disorder Active/Remission status: currently active Psychotic features: without psychotic features
[2018-05-13] MEDS: DOCUSATE SODIUM 100 MG CAPSULE (FP) PO SCH ×3 (06:13→22:15)
[2018-05-13] MEDS ORDERED: PT OWN MED DRAWER 7, Y5N ONE ×2 (10:26→19:20)
[2018-05-13] MEDS: ASPIRIN COATED 81 MG TABLET.EC PO SCH (10:31)
[2018-05-13] MEDS: ESCITALOPRAM OXALATE 10 MG TABLET (FP) PO SCH (10:31)
[2018-05-13] MEDS: METOPROLOL TARTRATE 25 MG TABLET (FP) PO SCH ×2 (10:32→22:15)
[2018-05-13] MEDS: HEPARIN NA (PORCINE) 5,000 UNITS/ML 1ML VIAL SQ SCH ×2 (10:32→22:15)
--- NOTE | 2018-05-13 13:34 | PN ---
Progress Note (short form) - Note Progress Note: no complaints no suicidal thoughts happy but does have depressed mood at times Vital Signs - 24 hr 05/12/18 05/12/18 05/13/18 21:00 22:00 06:00 Temperature 98.0 F 97.7 F Pulse Rate 62 53 L Respiratory 19 19 19 Rate Blood Pressure 115/72 103/59 L O2 Sat by Pulse Oximetry (%) 05/13/18 05/13/18 05/13/18 10:00 14:58 18:00 Temperature 98.3 F 98.1 F 98.7 F Pulse Rate 71 67 73 Respiratory 18 20 20 Rate Blood Pressure 103/66 103/63 105/67 O2 Sat by Pulse 92 L Oximetry (%) Current Medications Generic Name Dose Route Start Last Admin Trade Name Marvin PRN Reason Stop Dose Admin Aspirin 81 mg 05/07/18 10:00 05/13/18 10:31 Ecotrin - PO 81 mg DAILY [facility] Administration Docusate Sodium 100 mg 05/07/18 14:00 05/13/18 14:00 Colace - PO 100 mg TID [facility] Administration Escitalopram Oxalate 5 mg 05/06/18 10:00 05/13/18 10:31 Lexapro - PO 5 mg DAILY [facility] Administration Heparin Sodium (Porcine) 5,000 unit 05/07/18 10:00 05/13/18 10:32 Heparin - SQ 5,000 unit BID [facility] Administration Metoprolol Tartrate 25 mg 05/07/18 10:00 05/13/18 10:32 Lopressor - PO 25 mg BID [facility] Administration S1 S2 RRR Lungs clear Abd- soft, NT No edema left hand contracted PLAN off 1:1 Psych and PSYCHOLOGY follow up Does not say he is suicidal dc planning Problem List - Problems (1) Anxiety Code(s): F41.9 - ANXIETY DISORDER, UNSPECIFIED (2) Borderline personality disorder in adult Code(s): F60.3 - BORDERLINE PERSONALITY DISORDER (3) Depressed Code(s): F32.9 - MAJOR DEPRESSIVE DISORDER, SINGLE EPISODE, UNSPECIFIED Qualifiers: Depression Type: major depressive disorder Active/Remission status: currently active Psychotic features: without psychotic features
--- NOTE | 2018-05-13 15:29 | PN ---
Mental Health Exam - Mental Status Exam Alert and Oriented to: Time, Place (ALERT ORIENTATED BY 2. ) Cognitive Function: Impaired (CHRONIC LEARNING DISORDER. ) Patient Appearance: Unkempt, Disheveled (UNSHAVEN. ) Mood: Sad, Withdrawn Affect: Mood Congruent, Flat Patient Behavior: Passive, Cooperative Speech Pattern: Garbled (IMPEDIMENT. ), Rambling Voice Loudness: Severely Soft/Quiet, Limited Variation (SPEECH IMPEDIMENT. ) Thought Process: Intact Thought Disorder: Not Present Hallucinations: None, Denies Suicidal Ideation: None, Denies Homicidal Ideation: None, Denies Insight/Judgement: Fair Sleep: Fair (SLEEPS DURING DAY. ) Appetite: Good Muscle strength/Tone: Mild Hypotonicity Gait/Station: Shuffling (USE OF A CANE.) Additional Comments: cLIENT IS 72 YO MALE LAST SEEN BY DR CHAVEZ ON 05/05. FOLLOWED BY PSYCHOLOGIST ALSO. CLIENT IS TAKING LEXAPRO 5MG, DENIES gi UPSETS. DENIES SUICIDAL IDEATION OR HOMICIDAL IDEATION, ON ROUTINE STATUS. WALKING ON BARCLAY DISHEVELLED, IN HOSPITAL GOWNS. cLIENT WRITES NOTES ON TO ASSIST COMMUNICATION DUE TO SPEECH AND HEARING IMPEDIMENT. SAD MOOD AND AFFECTS. pLAN.. TITRATE LEXAPRO. STOP LEXAPRO 5MG PO AM. START LEXAPRO 10 PO AM. PATIENT IS CLEARED FROM PSYCHIATRIC STANDPOINT FOR DISCHARGE.
[2018-05-13] MEDS ORDERED: INSULIN (NOVOLOG) ASPART 100 UNITS/ML 10ML VIAL ONE (19:20)
[2018-05-14] MEDS: DOCUSATE SODIUM 100 MG CAPSULE (FP) PO SCH ×3 (06:13→21:36)
[2018-05-14] MEDS ORDERED: PT OWN MED DRAWER 7, Y5N ONE (09:35)
[2018-05-14] MEDS: METOPROLOL TARTRATE 25 MG TABLET (FP) PO SCH ×2 (09:41→21:36)
[2018-05-14] MEDS: ASPIRIN COATED 81 MG TABLET.EC PO SCH (09:41)
[2018-05-14] MEDS: ESCITALOPRAM OXALATE 10 MG TABLET (FP) PO SCH (09:41)
--- NOTE | 2018-05-14 12:29 | DS ---
Physical Examination Vital Signs: Vital Signs Temperature 98.2 F 05/14/18 09:38 Pulse Rate 89 05/14/18 09:38 Respiratory Rate 18 05/14/18 09:38 Blood Pressure 136/64 05/14/18 09:38 O2 Sat by Pulse Oximetry (%) 98 05/14/18 09:00 Constitutional: Yes: No Distress, Calm Cardiovascular: Yes: Regular Rate and Rhythm Respiratory: Yes: CTA Bilaterally Gastrointestinal: Yes: Normal Bowel Sounds, Soft. No: Tenderness Edema: No Labs: CBC, BMP 05/05/18 06:25 05/05/18 06:25 Discharge Summary Reason For Visit: SUICIDAL IDEATION Current Active Problems Anxiety (Acute) Borderline personality disorder in adult (Acute) Depressed (Acute) Suicidal ideation (Acute) Hospital Course: Admitted for suicidal ideas and depression Seen by Psychiatry and Psychology He was feeling that way due to loneliness Not suicidal he feels better Pt is cleared by Psychiatry for discharge to community and will needs mental health services Condition: Improved - Instructions Diet, Activity, Other Instructions: will need mental health services as outpt Referrals: Carlitos Ribeiro MD [Primary Care Provider] - Disposition: HOME - Home Medications Comprehensive Discharge Medication List: Ambulatory Orders Aspirin Coated [Ecotrin -] 81 mg PO DAILY 08/08/15 Docusate Sodium [Colace -] 100 mg PO TID 08/08/15 Ezetimibe [Zetia] 10 mg PO DAILY 08/08/15 Metoprolol Tartrate [Lopressor -] 25 mg PO BID 08/08/15 Simvastatin [Zocor -] 20 mg PO HS 08/08/15 Escitalopram Oxalate [Lexapro -] 10 mg PO DAILY #30 tablet 05/13/18
[2018-05-15] MEDS: DOCUSATE SODIUM 100 MG CAPSULE (FP) PO SCH (05:54)
[2018-05-15 09:16] VITALS: BP 127/77; PULSE 90; TEMP 98.3
[2018-05-15] MEDS: METOPROLOL TARTRATE 25 MG TABLET (FP) PO SCH (09:16)
[2018-05-15] MEDS: ESCITALOPRAM OXALATE 10 MG TABLET (FP) PO SCH (09:16)
[2018-05-15] MEDS: ASPIRIN COATED 81 MG TABLET.EC PO SCH (09:16)
== END 2018-05-15 10:30 | disposition home health service (06) | DRG 883 ==
LOC: JER 15:33 → JERBED 19:11 → J4W 05-05 01:42 → J5S 05-06 19:06
PROVIDERS: ADMIT Internal Medicine; ATTEND Internal Medicine
DX: F60.3 Borderline personality disorder (principal); R45.851 Suicidal ideations; N39.0 Urinary tract infection, site not specified; I10 Essential (primary) hypertension; E78.5 Hyperlipidemia, unspecified; F41.8 Other specified anxiety disorders; E11.9 Type 2 diabetes mellitus without complications; H91.90 Unspecified hearing loss, unspecified ear; H91.3 Deaf nonspeaking, not elsewhere classified; Z86.73 Personal history of transient ischemic attack (TIA), and cerebral infarction without residual deficits; K21.9 Gastro-esophageal reflux disease without esophagitis; Z95.1 Presence of aortocoronary bypass graft
CPT/HCPCS: 36415; 71045-TC-FY; 80048; 80053; 80307; 81003; 82962; 83735; 85025; 87086; 87186; 93005; 93010; 97116-GP; 97161-GP; 99283-25; J1644; J7030

== ENCOUNTER 2018-10-21 11:25 | Emergency (ER) | payer OTHER | END 2018-10-21 14:26 | disposition home or self-care (01) | LOC: JER 11:25 ==

== ENCOUNTER 2018-12-02 18:17 | Inpatient (IN) | payer OTHER ==
--- NOTE | 2018-12-02 18:21 | PDOC ---
History of Present Illness - General Chief Complaint: Syncope/Near Syncope Stated Complaint: SYNCOPE Time Seen by Provider: 12/02/18 18:21 History Source: Patient Exam Limitations: Clinical Condition, Physical Impairment - History of Present Illness Initial Comments: History is limited bc patient is hard of hearing. Most of the hx is obtained from prior chart and EMS. Kye Cortes is a 72 yo M w a sig pmh of CAD, CABG, HTN, HLD, NIDDM, CVA ( with residual LT-sided weakness), hearing impairment, GERD, anxiety, and depression, who presents to the [facility] ER BIBEMS after he was found down in the hallway outside of his apartment. EMS states he was not able to get up, signalled to someone else in his building to call 911. EMS states the patient could not have been down on the ground for too long bc he had fresh groceries from the market near him in the hallway where he fell. EMS states when they found him the patient appeared hot, flushed, pale, and diophoretic. They said he looked like he had suffered from heat stroke and that they thought he looked much better after they hooked him up to a liter of fluid. When Kye is asked if he had any chest pain prior to his fall he nods his head yes that he did. Allergies: NKA, NKDA PCP: Dr. Carlitos Ribeiro PSH: Triple bypass Social Hx: Lives at home. Denies smoking, drinking, or other substance usage. Past History - Past Medical History Allergies/Adverse Reactions: Allergies Allergy/AdvReac Type Severity Reaction Status Date / Time No Known Allergies Allergy Verified 12/02/18 18:44 Home Medications: Ambulatory Orders Aspirin Coated [Ecotrin -] 81 mg PO DAILY 08/08/15 Docusate Sodium [Colace -] 100 mg PO TID 08/08/15 Ezetimibe [Zetia] 10 mg PO DAILY 08/08/15 Metoprolol Tartrate [Lopressor -] 25 mg PO BID 08/08/15 Simvastatin [Zocor -] 20 mg PO HS 08/08/15 Escitalopram Oxalate [Lexapro -] 10 mg PO DAILY #30 tablet 05/13/18 Anemia: No Asthma: No Cancer: No Cardiac Disorders: Yes (CABG) CVA: Yes COPD: No CHF: No Dementia: No Diabetes: Yes (NID) GI Disorders: Yes (gerd) Disorders: No HTN: Yes Hypercholesterolemia: Yes Liver Disease: No Seizures: No Thyroid Disease: No - Surgical History Cardiac Surgery: Yes (triple bypass) Cholecystectomy: No - Immunization History Immunization Up to Date: No - Suicide/Smoking/Psychosocial Hx Smoking Status: No Smoking History: Unknown if ever smoked Have you smoked in the past 12 months: No Number of Cigarettes Smoked Daily: 0 If you are a former smoker, when did you quit?: 40 + YEARS Hx Alcohol Use: No Drug/Substance Use Hx: No Substance Use Type: None Hx Substance Use Treatment: No Review of Systems - Review of Systems Able to Perform ROS?: No (Patient Non-verbal) *Physical Exam - Physical Exam Comments: GENERAL: Patient is non-verbal. Crusting around his eyes and lips. Not well kept. HEENT: Normocephalic, atraumatic. PERRL. Jailyn-pharynx is clear. CARDIOVASCULAR: Normal S1, S2. Regular rate and rhythm. PULMONARY: No evidence of respiratory distress. Lungs clear to auscultation bilaterally. No wheezing, rales or rhonchi. ABDOMEN: Soft, non-distended, non-tender. EXTREMITIES: The left arm is contracted. No other gross deformities. SKIN: Warm, dry, pale. No rash or other signs of trauma. Neurologic: positive: Alert, Normal Mood/Affect, Respond to painful stimul, Responsive, Facial Droop, Sensory Deficit. negative: Normal Response ED Treatment Course - LABORATORY CBC & Chemistry Diagram: 12/03/18 12:15 12/03/18 12:15 - RADIOLOGY Radiograph Interpretation: CXR: Chest: Chest pain A single AP view of the chest reveal scoliosis with sternal sutures and clips, prominent mediastinum, congestive changes and sharp angles. The soft tissues are intact. There are some degenerative changes. Correlation recommended. Head CT: Cranial CT without contrast Clinical information: evaluate for bleed Multiplanar imaging was performed. Intravenous contrast was not administered. No prior imaging studies are available at this facility for direct comparison. There is no evidence of intraparenchymal hemorrhage. No CT evidence of acute subarachnoid hemorrhage. Correlate clinically. There is no extra-axial fluid collection. No obvious mass lesion is identified on noncontrast imaging. There is no discrete infarct within the limitations of CT. Mild to moderate periatrial white matter low-attenuation is noted which may be on the basis of microvascular ischemic gliosis. There is at least moderate somewhat asymmetric dilatation of the lateral ventricles which may be on the basis of obstructive hydrocephalus. Mild to moderate location of the third ventricle is seen. There is minimal to mild dilatation of the fourth ventricle. The right parietal calvarium at the high convexity level demonstrates focal attenuation which may be on a postsurgical basis versus representing nonspecific attenuation. There appears to be associated mild subjacent parietal atrophy. Impression: No CT evidence of intracranial hemorrhage. At least moderate somewhat asymmetric dilatation of the lateral ventricles is noted - ? representing obstructive hydrocephalus versus central atrophy. Direct comparison with previous imaging studies is suggested if available from a different facility. Focal nonspecific attenuation of the right parietal calvarium is seen at the high convexity level. If the patient has not had prior surgery in that region additional evaluation utilizing a radionuclide bone scan is suggested. Cervical CT: Cervical spine CT without contrast Clinical information: evaluate for fracture Multiplanar imaging was performed. No fracture or posttraumatic malalignment is seen. Multilevel degenerative disc changes are noted with associated spondylosis. Mild to moderate dextroscoliosis. The perivertebral soft tissues demonstrate no obvious abnormality. Incidental note is made of several small areas of ossification within the nuchal ligament at the level of the mid cervical spine. A small focus of mucosal thickening or fluid is seen within the partially imaged left sphenoid sinus posteriorly. Impression: No fracture is identified. Medical Decision Making - Medical Decision Making History is limited bc patient is hard of hearing. Most of the hx is obtained from prior chart and EMS. Kye Cortes is a 72 yo M w a sig pmh of CAD, CABG, HTN, HLD, NIDDM, CVA ( with residual LT-sided weakness), hearing impairment, GERD, anxiety, and depression, who presents to the [facility] ER BIBEMS after he was found down in the hallway outside of his apartment. EMS states he was not able to get up, signalled to someone else in his building to call 911. EMS states the patient could not have been down on the ground for too long bc he had fresh groceries from the market near him in the hallway where he fell. EMS states when they found him the patient appeared hot, flushed, pale, and diophoretic. They said he looked like he had suffered from heat stroke and that they thought he looked much better after they hooked him up to a liter of fluid. When Kye is asked if he had any chest pain prior to his fall he nods his head yes that he did. Vital Signs Temp Pulse Resp BP Pulse Ox 98.5 F 67 18 117/74 100 12/02/18 18:20 12/02/18 18:20 12/02/18 18:20 12/02/18 18:20 12/02/18 18:20 MDM: 72 yo M w a sig pmh of CAD, CABG, HTN, HLD, NIDDM, CVA (with residual LT- sided weakness), hearing impairment, GERD, anxiety, and depression, who presents to the [facility] ER BIBEMS after he was found down in the hallway outside of his apartment. It appears that the patient fell down but it is tough to assess what caused the fall. Per EMS it sounds like the patient experienced heat stroke after shopping an was dehydrated. Cannot assess whether he experienced LOC or experienced another stroke. Plan: Labs, Urine, EKG, CXR, CT, Admit to Tele obs for syncope. Labs: Elevated BUN - Hydrating patient Urine: Clean and unremarkable. EKG: NS rate of 67, No ST elevations or depressions, TWI in aVL and V2 both of which were present in Apr 2018, VT - 168, QTc - 435. CXR: No acute pathology. Head CT: No acute pathology Cervical CT: No acute pathology Disposition: Admit to telemetry for chest pain, syncope, and collapse. Patient accepted to hospitalist for observation admission. *DC/Admit/Observation/Transfer Diagnosis at time of Disposition: Syncope and collapse determined by examination Chest pain Qualifiers: Chest pain type: unspecified Qualified Code(s): R07.9 - Chest pain, unspecified - Discharge Dispostion Condition at time of disposition: Stable Decision to Admit order: Yes - Referrals - Patient Instructions - Post Discharge Activity
[2018-12-02] MEDS ORDERED: SODIUM CHLORIDE 1,000 ML IV STA (18:27)
[2018-12-02 18:43] VITALS: BMI 32.8
[2018-12-02 19:16] LABS: BASO % 0.4 % (0-2.0); EOS % 1.5 % (0-4.5); HEMATOCRIT 42.1 % (35.4-49); HEMOGLOBIN 14.3 GM/dL (11.7-16.9); LYMPH % 28.2 % (8-40); MCH 31.2 pg (25.7-33.7); MCHC 33.9 g/dl (32.0-35.9); MEAN PLT VOLUME 8.7 fl (7.5-11.1); MONO % 8.9 % (3.8-10.2); PLATELET COUNT 186 K/MM3 (134-434); RBC 4.58 M/mm3 (4.00-5.60); WHITE BLOOD COUNT 6.6 K/mm3 (4.0-10.0)
--- NOTE | 2018-12-02 19:37 | PDOC ---
Documentation entered by Radha Villagomez SCRIBE, acting as scribe for Cammie Jacobs DO. Cammie Jacobs DO: This documentation has been prepared by the Hernando thayer Xhesika, SCRIBE, under my direction and personally reviewed by me in its entirety. I confirm that the documentation accurately reflects all work, treatment, procedures, and medical decision making performed by me. Attending Attestation - Resident Resident Name: Hari Lane - ED Attending Attestation I have performed the following: I have examined & evaluated the patient, The case was reviewed & discussed with the resident, I agree w/resident's findings & plan, Exceptions are as noted - HPI HPI: 12/02/18 19:24 The patient is a 72 year old male with a significant medical history of CAD, CABG, HTN, HLD, NIDDM, CVA (with residual LT-sided weakness), hearing impairment , GERD, anxiety, and depression who present to the ED s/p fall in the hallway outside of his apartment. The patient states he endorsed sudden onset of chest pain prior to his fall. The patient is a poor historian due to hearing impairment, however, as per EMS, the patient was unable to get up and signalled to someone else in his building to call 911. As per EMS, the patient appeared hot, flushed, pale, diaphoretic and he seemed like he suffered from a heat stroke. EMS states patient appeared much better after being hooked to fluid. Allergies: NKDA Past surgical history: Triple bypass PCP: Dr. Carlitos Ribeiro - Physicial Exam PE: 12/02/18 19:38 GENERAL: Awake, alert, and fully oriented, in no acute distress HEAD: No signs of trauma EYES: PERRLA, EOMI, sclera anicteric, conjunctiva clear ENT: (+) facial droop to the L. (+) reads lips. Auricles normal inspection, nares patent. Moist mucosa NECK: Normal ROM, supple, no lymphadenopathy, JVD, or masses LUNGS: Breath sounds equal, clear to auscultation bilaterally. No wheezes, and no crackles HEART: Regular rate and rhythm, normal S1 and S2, no murmurs, rubs or gallops ABDOMEN: Soft, nontender, normoactive bowel sounds. No guarding, no rebound. No masses EXTREMITIES: (+) L sided weakness upper and lower extremities. Moves all extremities. no edema. No clubbing or cyanosis. No cords, erythema, or tenderness NEUROLOGICAL: Cranial nerves II through XII grossly intact. SKIN: Warm, Dry, normal turgor, no rashes or lesions noted. - Medical Decision Making 12/02/18 19:32 I, Dr. Cammie Jacobs, DO, attest that this document has been prepared under my direction and personally reviewed by me in its entirety. I further attest, that it accurately reflects all work, treatment, procedures and medical decision -making performed by me. 12/02/18 19:32 a/p: 72yo male with cp today and then a syncopal episode -pt with hx of prior cva with residual L sided weakness -will send labs, head ct, ekg, ct c spine given found on the floor -ekg without new changes compared to old -will send trop -pt will need observation for syncope and cp -pt currently awake, alert, - [place], reads lips -will monitor and reassess 12/02/18 22:[address] hydro on head ct labs reviewed 12/02/18 22:08 no pna on cxr resident discussed the case with AGUSTÍN who is covering Tre Ribeiro, who accepts pt to service Heart Score/ECG Review - ECG Intrepretation Comment:: 12/02/18 19:37 sinus at 67, low voltage, t wave flattening diffusely, nl axis, nl interval, no acute st/t wave findings
[2018-12-02 19:52] LABS: ALBUMIN 3.6 g/dl (3.4-5.0); BILIRUBIN,TOTAL 0.3 mg/dL (0.2-1); CALCIUM 8.6 mg/dL (8.5-10.1); CREATININE 1.3 mg/dL (0.55-1.3); POTASSIUM 4.3 mmol/L (3.5-5.1); TOT PROT 6.7 g/dl (6.4-8.2)
[2018-12-02 20:00] LABS: INR 1.06 (0.83-1.09); PROTHROMBIN TIME (PATIENT) 12.5 SEC (9.7-13.0)
[2018-12-02 20:02] LABS: ACTIVATED PTT 34.4 SECONDS (25.2-36.5)
[2018-12-02] MEDS ORDERED: PATIENT'S OWN MEDICATION (NON-FORMULARY) (Simvastatin 20 MG) PO SCH (22:00)
[2018-12-02] MEDS ORDERED: ATORVASTATIN CA 10 MG TABLET (FP) ONE (22:59)
[2018-12-02] MEDS ORDERED: METOPROLOL TARTRATE 25 MG TABLET (FP) ONE (22:59)
[2018-12-02] MEDS ORDERED: DOCUSATE SODIUM 100 MG CAPSULE (FP) PO ONE (23:00)
[2018-12-02] MEDS: DOCUSATE SODIUM 100 MG CAPSULE (FP) PO SCH (23:00)
[2018-12-02] MEDS ORDERED: HEPARIN NA (PORCINE) 5,000 UNITS/ML 1ML VIAL ONE (23:00)
[2018-12-02] MEDS: METOPROLOL TARTRATE 25 MG TABLET (FP) PO SCH (23:00)
[2018-12-02] MEDS: ATORVASTATIN CA 10 MG TABLET (FP) PO SCH (23:00)
[2018-12-02] MEDS: HEPARIN NA (PORCINE) 5,000 UNITS/ML 1ML VIAL SQ SCH (23:00)
[2018-12-02] MEDS: SODIUM CHLORIDE 1,000 ML IV SCH (23:18)
--- NOTE | 2018-12-02 23:18 | HP ---
Admitting History and Physical - Primary Care Physician PCP: Carlitos Ribeiro - Admission Chief Complaint: fall History of Present Illness: History taken from chart and patient, patient is hard of hearing and has difficulty articulating. 72 year old male with an extensive PMHx HTN, HLD, DM2, CAD s/p CABG, CVA with residual left sided weakness, hearing impairment, GERD, anxiety, and depression , presents to ED BIBEMS after he was found in his hallway on the ground. Patient was getting home from the grocery store and states he felt some mild chest discomfort and diaphoresis and fell to the ground. It is not clear of he lost consciousness. He did not hit his head. EMS states he was not able to get up, and signaled for help. EMS stated he was pale and diaphoretic, improved after IVF bolus. Patient feels well now is thirsty and hungry asking for some food and a diet gingerale. PCP: Dr. 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) Cardiovascular: Yes: CAD, HTN ENT: Yes: Other Endocrine: Yes: Diabetes Mellitus - Past Surgical History Past Surgical History: Yes: CABG - Smoking History Smoking history: Unknown if ever smoked Have you smoked in the past 12 months: No Aproximately how many cigarettes per day: 0 If you are a former smoker, when did you quit?: 40 + YEARS - Alcohol/Substance Use Hx Alcohol Use: No History of Substance Use: reports: None - Social History Usual Living Arrangement: Yes: Alone History of Recent Travel: No Home Medications - Allergies Allergies/Adverse Reactions: Allergies Allergy/AdvReac Type Severity Reaction Status Date / Time No Known Allergies Allergy Verified 12/02/18 18:44 - Home Medications Home Medications: Ambulatory Orders Aspirin Coated [Ecotrin -] 81 mg PO DAILY 08/08/15 Docusate Sodium [Colace -] 100 mg PO TID 08/08/15 Ezetimibe [Zetia] 10 mg PO DAILY 08/08/15 Metoprolol Tartrate [Lopressor -] 25 mg PO BID 08/08/15 Simvastatin [Zocor -] 20 mg PO HS 08/08/15 Escitalopram Oxalate [Lexapro -] 10 mg PO DAILY #30 tablet 05/13/18 Family Disease History - Family Disease History Family History: Unable to Obtain Review of Systems - Review of Systems Constitutional: reports: No Symptoms Eyes: reports: No Symptoms HENT: reports: No Symptoms Neck: reports: No Symptoms Cardiovascular: reports: Chest Pain Respiratory: reports: No Symptoms Gastrointestinal: reports: No Symptoms Genitourinary: reports: No Symptoms Breasts: reports: No Symptoms Reported Musculoskeletal: reports: No Symptoms Integumentary: reports: No Symptoms Neurological: reports: No Symptoms Endocrine: reports: No Symptoms Hematology/Lymphatic: reports: No Symptoms Psychiatric: reports: No Symptoms Physical Examination Vital Signs: Vital Signs Temperature 98.5 F 12/02/18 18:20 Pulse Rate 60 12/02/18 19:40 Respiratory Rate 16 12/02/18 19:40 Blood Pressure 113/72 12/02/18 21:20 O2 Sat by Pulse Oximetry (%) 95 12/02/18 19:40 Constitutional: Yes: Well Nourished, No Distress, Calm, Poor Hygeine Eyes: Yes: WNL Cardiovascular: Yes: WNL, Regular Rate and Rhythm Respiratory: Yes: WNL, Regular, CTA Bilaterally Gastrointestinal: Yes: WNL, Normal Bowel Sounds, Soft, Abdomen, Obese, Distention (mild) Musculoskeletal: Yes: WNL Extremities: Yes: Other (left arm contracted) Edema: No Peripheral Pulses WNL: Yes Neurological: Yes: WNL, Alert, Oriented, Facial Droop (left), Weakness (left upper and lower extremity 4/5 motor strength, all other ext 5/5 patient is [place] understands when you speak slowly and loudly, answeres questions correctly is able to move his mouth to speak, low voice), Other ...Motor Strength: LUE Psychiatric: Yes: WNL, Alert, Oriented Labs: CBC, BMP 12/02/18 18:45 12/02/18 18:27 Imaging - Results Cat Scan: Report Reviewed (head CT) EKG: Report Reviewed Problem List - Problems (1) Pre-syncope Code(s): R55 - SYNCOPE AND COLLAPSE (2) Chest pain Code(s): R07.9 - CHEST PAIN, UNSPECIFIED Qualifiers: Chest pain type: unspecified Qualified Code(s): R07.9 - Chest pain, unspecified Assessment/Plan 72 year old male presents with chest pain and fall Assessment: Chest Pain Presyncope HTN HLD CAD s/p CABG HLD DM2 CVA with left residual weakness [place] GERD anxiety/depression Plan: Likely vasovagal R/O ACS, EKG no ischemic changes trop x 1 neg, check next set check orthostatics dehydration, continue with IVF CT head report reviewed, no acute pathology, possible hydrocephalus, will try to get records to compare Would not start a neuro workup at this time, monitor overnight follow up ct cspine official read resume home meds
[2018-12-03 01:12] LABS: MAGNESIUM 2.2 mg/dL (1.8-2.4)
[2018-12-03] MEDS ORDERED: DOCUSATE SODIUM 100 MG CAPSULE (FP) PO ONE (06:31)
[2018-12-03] MEDS: DOCUSATE SODIUM 100 MG CAPSULE (FP) PO SCH ×3 (06:34→21:46)
[2018-12-03 06:53] LABS: PH,URINE 5.5 (5.0-8.0); URINE APPEARANCE CLEAR; URINE BILIRUBIN NEGATIVE (NEGATIVE); URINE COLOR YELLOW; URINE GLUCOSE (UA) NEGATIVE (NEGATIVE); URINE KETONE NEGATIVE (NEGATIVE); URINE LEUK ESTERASE NEGATIVE (NEGATIVE); URINE NITRITE NEGATIVE (NEGATIVE); URINE PROTEIN NEGATIVE (NEGATIVE); URINE UROBILINOGEN 0.2 mg/dL (0.2-1.0)
[2018-12-03] MEDS ORDERED: PT OWN MED DRAWER 7, Y5N ONE (08:53)
[2018-12-03] MEDS: ASPIRIN COATED 81 MG TABLET.EC PO SCH (09:23)
[2018-12-03] MEDS: ESCITALOPRAM OXALATE 10 MG TABLET (FP) PO SCH (09:23)
[2018-12-03] MEDS: METOPROLOL TARTRATE 25 MG TABLET (FP) PO SCH ×2 (09:23→21:46)
[2018-12-03] MEDS: HEPARIN NA (PORCINE) 5,000 UNITS/ML 1ML VIAL SQ SCH ×2 (09:23→21:46)
[2018-12-03] MEDS: EZETIMIBE 10 MG TABLET (FP) PO SCH (09:23)
--- NOTE | 2018-12-03 10:43 | PN ---
Progress Note (short form) - Note Progress Note: awake and no distress no chest pain no headaches no dizziness Vital Signs - 24 hr 12/02/18 12/02/18 12/02/18 18:20 19:40 21:20 Temperature 98.5 F Pulse Rate 67 Pulse Rate [ 60 Left Radial] Pulse Rate [ Right side Sitting] Pulse Rate [ Right side Standing] Pulse Rate [ Right side Supine] Respiratory 18 16 Rate Blood Pressure 117/74 Blood Pressure 98/59 L 113/72 [Right Arm] Blood Pressure [Right side Sitting] Blood Pressure [Right side Standing] Blood Pressure [Right side Supine] O2 Sat by Pulse 100 95 Oximetry (%) 12/02/18 12/03/18 12/03/18 23:43 00:34 04:02 Temperature Pulse Rate Pulse Rate [ 48 L Left Radial] Pulse Rate [ 55 L Right side Sitting] Pulse Rate [ 63 Right side Standing] Pulse Rate [ 53 L Right side Supine] Respiratory 16 Rate Blood Pressure Blood Pressure 109/78 [Right Arm] Blood Pressure 115/73 [Right side Sitting] Blood Pressure 113/70 [Right side Standing] Blood Pressure 115/67 [Right side Supine] O2 Sat by Pulse 98 98 Oximetry (%) 12/03/18 12/03/18 06:20 11:47 Temperature 97.6 F Pulse Rate Pulse Rate [ 46 L 57 L Left Radial] Pulse Rate [ Right side Sitting] Pulse Rate [ Right side Standing] Pulse Rate [ Right side Supine] Respiratory 20 20 Rate Blood Pressure Blood Pressure 117/66 107/48 L [Right Arm] Blood Pressure [Right side Sitting] Blood Pressure [Right side Standing] Blood Pressure [Right side Supine] O2 Sat by Pulse 97 94 L Oximetry (%) Current Medications Generic Name Dose Route Start Last Admin Trade Name Freq PRN Reason Stop Dose Admin Aspirin 81 mg 12/03/18 10:00 12/03/18 09:23 Ecotrin - PO 81 mg DAILY MISSY Administration Atorvastatin Calcium 10 mg 12/02/18 22:00 12/02/18 23:00 Lipitor - PO 10 mg HS MISSY Administration Docusate Sodium 100 mg 12/02/18 22:00 12/03/18 06:34 Colace - PO 100 mg TID MISSY Administration Ezetimibe 10 mg 12/03/18 10:00 12/03/18 09:23 Zetia - PO 10 mg DAILY MISSY Administration Escitalopram Oxalate 10 mg 12/03/18 10:00 12/03/18 09:23 Lexapro - PO 10 mg DAILY MISSY Administration Heparin Sodium (Porcine) 5,000 unit 12/02/18 22:00 12/03/18 09:23 Heparin - SQ 5,000 unit BID MISSY Administration Sodium Chloride 1,000 mls @ 100 mls/hr 12/02/18 22:00 12/02/18 23:18 Normal Saline - IV 100 mls/hr ASDIR MISSY Administration Metoprolol Tartrate 25 mg 12/02/18 22:00 12/03/18 09:23 Lopressor - PO Not Given BID [facility] [place] Laboratory Results - last 24 hr 12/02/18 12/02/18 12/02/18 18:27 18:27 18:45 WBC RBC Hgb Hct MCV MCH MCHC RDW Plt Count MPV Absolute Neuts (auto) Neutrophils % Lymphocytes % Monocytes % Eosinophils % Basophils % Nucleated RBC % PT with INR 12.50 INR 1.06 PTT (Actin FS) 34.4 Sodium 141 Potassium 4.3 Chloride 107 Carbon Dioxide 29 Anion Gap 5 L BUN 23.0 H Creatinine 1.3 Est GFR (CKD-EPI)AfAm 63.62 Est GFR (CKD-EPI)NonAf 54.90 POC Glucometer Random Glucose 122 H Calcium 8.6 Magnesium 2.2 Total Bilirubin 0.3 AST 25 ALT 30 Alkaline Phosphatase 50 Creatine Kinase 101 Troponin I < 0.02 B-Natriuretic Peptide 56.0 Total Protein 6.7 Albumin 3.6 Urine Color Urine Appearance Urine pH Ur Specific [place] Urine Protein Urine Glucose (UA) Urine Ketones Urine Blood Urine Nitrite Urine Bilirubin Urine Urobilinogen Ur Leukocyte Esterase Blood Type Antibody Screen 12/02/18 12/02/18 12/03/18 18:45 18:45 00:49 WBC 6.6 RBC 4.58 Hgb 14.3 Hct 42.1 MCV 92.0 MCH 31.2 MCHC 33.9 RDW 13.0 Plt Count 186 D MPV 8.7 Absolute Neuts (auto) 4.0 Neutrophils % 61.0 Lymphocytes % 28.2 Monocytes % 8.9 Eosinophils % 1.5 Basophils % 0.4 Nucleated RBC % 0 PT with INR INR PTT (Actin FS) Sodium Potassium Chloride Carbon Dioxide Anion Gap BUN Creatinine Est GFR (CKD-EPI)AfAm Est GFR (CKD-EPI)NonAf POC Glucometer Random Glucose Calcium Magnesium Total Bilirubin AST ALT Alkaline Phosphatase Creatine Kinase 73 Troponin I < 0.02 B-Natriuretic Peptide Total Protein Albumin Urine Color Urine Appearance Urine pH Ur Specific [place] Urine Protein Urine Glucose (UA) Urine Ketones Urine Blood Urine Nitrite Urine Bilirubin Urine Urobilinogen Ur Leukocyte Esterase Blood Type Cancelled Antibody Screen Cancelled 12/03/18 12/03/18 12/03/18 06:30 06:56 12:15 WBC 5.0 RBC 4.46 Hgb 14.2 Hct 41.3 MCV 92.5 MCH 31.8 MCHC 34.4 RDW 13.2 Plt Count 166 MPV 8.7 Absolute Neuts (auto) 2.8 Neutrophils % 55.9 Lymphocytes % 31.8 Monocytes % 9.9 Eosinophils % 2.0 Basophils % 0.4 Nucleated RBC % 0 PT with INR INR PTT (Actin FS) Sodium Potassium Chloride Carbon Dioxide Anion Gap BUN Creatinine Est GFR (CKD-EPI)AfAm Est GFR (CKD-EPI)NonAf POC Glucometer 99 Random Glucose Calcium Magnesium Total Bilirubin AST ALT Alkaline Phosphatase Creatine Kinase Troponin I B-Natriuretic Peptide Total Protein Albumin Urine Color Yellow Urine Appearance Clear Urine pH 5.5 Ur Specific [place] 1.019 Urine Protein Negative Urine Glucose (UA) Negative Urine Ketones Negative Urine Blood Negative Urine Nitrite Negative Urine Bilirubin Negative Urine Urobilinogen 0.2 Ur Leukocyte Esterase Negative Blood Type Antibody Screen S1 s2 RRR Lungs clear Abd -soft, NT No edema Moves all extremities PLAN cardiac enzymes negative echo Cardiology and Neurology eval Check carotid doppler Pt eval Problem List - Problems (1) Chest pain Code(s): R07.9 - CHEST PAIN, UNSPECIFIED Qualifiers: Chest pain type: unspecified Qualified Code(s): R07.9 - Chest pain, unspecified (2) Pre-syncope Code(s): R55 - SYNCOPE AND COLLAPSE (3) Syncope and collapse determined by examination Code(s): R55 - SYNCOPE AND COLLAPSE (4) Anxiety Code(s): F41.9 - ANXIETY DISORDER, UNSPECIFIED (5) Depressed Code(s): F32.9 - MAJOR DEPRESSIVE DISORDER, SINGLE EPISODE, UNSPECIFIED Qualifiers: Depression Type: major depressive disorder Active/Remission status: currently active Psychotic features: without psychotic features
[2018-12-03 12:25] LABS: BASO % 0.4 % (0-2.0); HEMATOCRIT 41.3 % (35.4-49); HEMOGLOBIN 14.2 GM/dL (11.7-16.9); LYMPH % 31.8 % (8-40); MCH 31.8 pg (25.7-33.7); MCHC 34.4 g/dl (32.0-35.9); MEAN CELL VOLUME 92.5 fl (80-96); MEAN PLT VOLUME 8.7 fl (7.5-11.1); MONO % 9.9 % (3.8-10.2); NEUT % 55.9 % (42.8-82.8); PLATELET COUNT 166 K/MM3 (134-434); RBC 4.46 M/mm3 (4.00-5.60); RDW 13.2 % (11.9-15.9)
[2018-12-03 12:49] LABS: BLOOD UREA NITROGEN 15.5 mg/dL (7-18); CALCIUM 8.5 mg/dL (8.5-10.1); MAGNESIUM 2.4 mg/dL (1.8-2.4); POTASSIUM 4.2 mmol/L (3.5-5.1)
--- NOTE | 2018-12-03 15:19 | EKG ---
Test Reason : Blood Pressure : / mmHG Vent. Rate : 067 BPM Atrial Rate : 067 BPM P-R Int : 168 ms QRS Dur : 084 ms QT Int : 412 ms P-R-T Axes : 057 036 072 degrees QTc Int : 435 ms NORMAL SINUS RHYTHM LOW VOLTAGE QRS BORDERLINE ECG WHEN COMPARED WITH ECG OF 04-MAY-2018 16:15, NO SIGNIFICANT CHANGE WAS FOUND Confirmed by ALBARO SALGADO MD ([id number]) on 12/03/2018 3:19:05 PM Referred By: Confirmed By:ALBARO SALGADO MD
--- NOTE | 2018-12-03 15:55 | ECHO ---
Name: JAYDON LUCIO Exam:Adult Echocardiogram Study Date: 12/03/2018 01:28 PM Age: 72 yrs Reason For Study: Chest pain Height: 63 in Weight: 185 lb BSA: 1.9 m2 MMode/2D Measurements & Calculations IVSd: 0.80 cm Ao root diam: 2.9 cm LVIDd: 4.6 cm LA dimension: 3.5 cm LVIDs: 3.1 cm LVPWd: 0.79 cm EDV(Teich): 97.4 ml LVOT diam: 2.0 cm ESV(Teich): 37.8 ml Doppler Measurements & Calculations MV E max elliott: 88.8 cm/sec Ao V2 max: 125.7 cm/sec MV A max elliott: 22.2 cm/sec Ao max P.3 mmHg MV E/A: 4.0 Ao V2 mean: 78.3 cm/sec MV dec time: 0.24 sec Ao mean P.8 mmHg Ao V2 VTI: 27.0 cm MANDY(I,D): 1.8 cm2 AI P1/2t: 571.1 msec MANDY(V,D): 1.9 cm2 AI max elliott: 331.8 cm/sec LV V1 max P.1 mmHg AI max P.2 mmHg LV V1 mean P.1 mmHg AI dec slope: 170.2 cm/sec2 LV V1 max: 72.4 cm/sec LV V1 mean: 49.4 cm/sec LV V1 VTI: 15.0 cm SV(LVOT): 48.4 ml TR max elliott: 222.6 cm/sec TR max P.8 mmHg Med Peak E' Elliott: 3.8 cm/sec Med E/e': 23.4 Lat Peak E' Elliott: 4.0 cm/sec Lat E/e': 22.2 Procedure A complete two-dimensional transthoracic echocardiogram was performed (2D, M-mode, Doppler and color flow Doppler). Left Ventricle The left ventricular size, thickness and function are normal. The left ventricular ejection fraction is normal. Ejection Fraction = 55-60%. The left ventricular wall motion is normal. Right Ventricle The right ventricle is normal in size and function. Atria Normal left and right atrial size and function. Mitral Valve There is no mitral regurgitation noted. Tricuspid Valve There is mild tricuspid regurgitation. Right ventricular systolic pressure is normal. Aortic Valve The aortic valve is trileaflet. No hemodynamically significant valvular aortic stenosis. Mild aortic regurgitation. Pulmonic Valve There is no pulmonic valvular regurgitation. Great Vessels The aortic root is normal size. Pericardium/Pleura There is no pericardial effusion. Interpretation Summary The left ventricular size, thickness and function are normal The right ventricle is normal in size and function. There is mild tricuspid regurgitation. Mild aortic regurgitation. MD Oleg Davis 12/03/2018 03:54 PM
--- NOTE | 2018-12-03 16:13 | CON.CARD ---
Consult Consult Specialty:: Cardiology Referred by:: Medicine Reason for Consultation:: chest pain, fall - History of Present Illness Chief Complaint: fall, found down History of Present Illness: 72M h/o HTN, HLD, DM, CAD s/p CABG, CVA with left sided weakness, hearing impairment, GERD presents after fall. Found in his hallway on the ground after getting home from grocery store. History obtained from chart. Patient nods that he understands and makes hand motions to ask for things but is not speaking , history obtained from chart. Unknown if lost consciousness. 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 (CEREBRAL PALSY) Cardio/Vascular: Yes: CAD, HTN ENT: Yes: Other Endocrine: Yes: Diabetes Mellitus - Past Surgical History Past Surgical History: Yes: CABG - Alcohol/Substance Use Hx Alcohol Use: No History of Substance Use: reports: None - Smoking History Smoking history: Unknown if ever smoked Have you smoked in the past 12 months: No Aproximately how many cigarettes per day: 0 If you are a former smoker, when did you quit?: 40 + YEARS - Social History Usual Living Arrangement: Alone History of Recent Travel: No Home Medications - Allergies Allergies/Adverse Reactions: Allergies Allergy/AdvReac Type Severity Reaction Status Date / Time No Known Allergies Allergy Verified 12/02/18 18:44 - Home Medications Home Medications: Ambulatory Orders Aspirin Coated [Ecotrin -] 81 mg PO DAILY 08/08/15 Docusate Sodium [Colace -] 100 mg PO TID 08/08/15 Ezetimibe [Zetia] 10 mg PO DAILY 08/08/15 Metoprolol Tartrate [Lopressor -] 25 mg PO BID 08/08/15 Simvastatin [Zocor -] 20 mg PO HS 08/08/15 Escitalopram Oxalate [Lexapro -] 10 mg PO DAILY #30 tablet 05/13/18 Family Disease History - Family Disease History Family History: Unremarkable Review of Systems - Review of Systems Constitutional: reports: No Symptoms Eyes: reports: No Symptoms HENT: reports: No Symptoms Neck: reports: No Symptoms Cardiovascular: reports: No Symptoms Respiratory: reports: No Symptoms Gastrointestinal: reports: No Symptoms Musculoskeletal: reports: No Symptoms Integumentary: reports: No Symptoms Neurological: reports: No Symptoms Endocrine: reports: No Symptoms Hematology/Lymphatic: reports: No Symptoms Psychiatric: reports: No Symptoms Vital Signs: Vital Signs Temperature 97.6 F 12/03/18 06:20 Pulse Rate 57 L 12/03/18 11:47 Respiratory Rate 20 12/03/18 11:47 Blood Pressure 107/48 L 12/03/18 11:47 O2 Sat by Pulse Oximetry (%) 94 L 12/03/18 11:47 Constitutional: Yes: Well Nourished, No Distress, Calm Eyes: Yes: Conjunctiva Clear, EOM Intact HENT: Yes: Atraumatic Neck: Yes: Supple, Trachea Midline Respiratory: Yes: Regular, CTA Bilaterally Gastrointestinal: Yes: Normal Bowel Sounds, Soft Cardiovascular: Yes: Bradycardia JVD: No Carotid Bruit: No PMI: Non-Displaced Heart Sounds: Yes: S1, S2 Musculoskeletal: No: Back Pain Extremities: No: Cold Edema: No Peripheral Pulses WNL: Yes Peripheral Pulses: 2+ Left Doralis Pedis, 2+ Right Dorsalis Pedis Integumentary: No: Jaundice Neurological: Yes: Alert, Aphasia Psychiatric: No: Agitated - Other Data Labs, Other Data: CBC, BMP 12/03/18 12:15 12/03/18 12:15 INR, PTT INR 1.06 (0.83-1.09) 12/02/18 18:45 Troponin, BNP 12/02/18 12/02/18 12/03/18 18:27 18:27 00:49 Troponin I < 0.02 < 0.02 B-Natriuretic Peptide 56.0 Troponin, BNP 12/02/18 12/02/18 12/03/18 18:27 18:27 00:49 Troponin I < 0.02 < 0.02 B-Natriuretic Peptide 56.0 Assessment/Plan EKG sinus, low voltage, no ischemic changes echo nl LV/RV function,mild TR, mild AR CXR: no acute process carotid dopplers: no significant stenosis tele: sinus rudolph Fall - unable to obtain further history - per chart was out in the heat, possibly vasovagal vs orthostatic, unknown if loss of consciousness - check orthostatics - echo, carotid doppler unremarkable - neuro consulted - tele sinus rudolph - will decrease metoprolol to 12.5 mg BID, cont monitoring on tele CAD s/p CABG - trop neg x 2, EKG no ischemic changes - continue aspirin, statin HLD - cont statin, zetia DM - manage per primary
[2018-12-03] MEDS: ATORVASTATIN CA 10 MG TABLET (FP) PO SCH (21:46)
[2018-12-04] MEDS: SODIUM CHLORIDE 1,000 ML IV SCH (05:42)
[2018-12-04] MEDS: DOCUSATE SODIUM 100 MG CAPSULE (FP) PO SCH ×3 (05:42→21:31)
[2018-12-04 07:59] LABS: CHOLESTEROL 127 mg/dL (50-200); HDL CHOLESTEROL 35 mg/dL (40-60); TRIGLYCERIDES 241 mg/dL (0-150)
--- NOTE | 2018-12-04 09:03 | PN ---
Progress Note, Physician Chief Complaint: TELE: Sinus rudolph high 40s - Current Medication List Current Medications: Active Medications Aspirin (Ecotrin -) 81 mg PO DAILY [facility] Last Admin: 12/03/18 09:23 Dose: 81 mg Atorvastatin Calcium (Lipitor -) 10 mg PO HS [facility] Last Admin: 12/03/18 21:46 Dose: 10 mg Docusate Sodium (Colace -) 100 mg PO TID [facility] Last Admin: 12/04/18 05:42 Dose: 100 mg Ezetimibe (Zetia -) 10 mg PO DAILY [facility] Last Admin: 12/03/18 09:23 Dose: 10 mg Escitalopram Oxalate (Lexapro -) 10 mg PO DAILY [facility] Last Admin: 12/03/18 09:23 Dose: 10 mg Heparin Sodium (Porcine) (Heparin -) 5,000 unit SQ BID [facility] Last Admin: 12/03/18 21:46 Dose: 5,000 unit Sodium Chloride (Normal Saline -) 1,000 mls @ 100 mls/hr IV ASDIR [facility] Last Admin: 12/04/18 05:42 Dose: 100 mls/hr Metoprolol Tartrate (Lopressor -) 12.5 mg PO BID [facility] Last Admin: 12/03/18 21:46 Dose: 12.5 mg - Objective Vital Signs: Vital Signs Temperature 98.4 F 12/04/18 05:40 Pulse Rate 65 12/04/18 05:40 Respiratory Rate 18 12/04/18 05:40 Blood Pressure 103/67 12/04/18 05:40 O2 Sat by Pulse Oximetry (%) 98 12/03/18 21:00 Constitutional: Yes: No Distress Cardiovascular: Yes: Regular Rate and Rhythm Respiratory: Yes: CTA Bilaterally Gastrointestinal: Yes: Soft Edema: No Labs: CBC, BMP 12/03/18 12:15 12/03/18 12:15 INR, PTT INR 1.06 (0.83-1.09) 12/02/18 18:45 - ....Imaging EKG: Image Reviewed Assessment/Plan Assessment/Plan EKG sinus, low voltage, no ischemic changes echo nl LV/RV function,mild TR, mild AR CXR: no acute process carotid dopplers: no significant stenosis tele: sinus rudolph 1. Fall: - unable to obtain further history - per chart was out in the heat, possibly vasovagal vs orthostatic, unknown if loss of consciousness - check orthostatics - echo, carotid doppler unremarkable - neuro consulted - tele sinus rudolph - Metoprolol decreased, rates now in high 40s and low 50s, stable. No sig pauses 2. CAD s/p CABG: - trop neg x 2, EKG no ischemic changes - continue aspirin, statin 3. HLD: - cont statin, zetia 4. DM: - manage per primary
--- NOTE | 2018-12-04 10:11 | CON.NEURO ---
Consult - History of Present Illness History of Present Illness: 72 year old male- legally deaf and mute as per advocate, Micah Harris -knows him > 20yrs , HX OF CEREBRAL PALSY and left hemiplegia , extensive PMHx HTN, HLD, DM2, CAD s/p CABG, hearing impairment (simple communication by writing ) states he felt some mild chest discomfort and diaphoresis and fell to the ground. It is not clear of he lost consciousness. He did not hit his head. EMS states he was not able to get up, and signaled for help. EMS stated he was pale and diaphoretic, improved after IVF bolus. NO HX of brain surgery. Pt unable to elaborate HX , lives home and has aide support; called advocate- feels he needs more assistance/higher level care ; PT is his own guardian and has expressed not interested in a facility. HD CT Impression: No CT evidence of intracranial hemorrhage. At least moderate somewhat asymmetric dilatation of the lateral ventricles is noted - ? representing obstructive hydrocephalus versus central atrophy. Direct comparison with previous imaging studies is suggested if available from a different facility. Focal nonspecific attenuation of the right parietal calvarium is seen at the high convexity level. If the patient has not had prior surgery in that region additional evaluation utilizing a radionuclide bone scan is suggested. 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 PALSY) Cardio/Vascular: Yes: CAD, HTN ENT: Yes: Other Endocrine: Yes: Diabetes Mellitus - Past Surgical History Past Surgical History: Yes: CABG - Alcohol/Substance Use Hx Alcohol Use: No History of Substance Use: reports: None - Smoking History Smoking history: Unknown if ever smoked Have you smoked in the past 12 months: No Aproximately how many cigarettes per day: 0 If you are a former smoker, when did you quit?: 40 + YEARS - Social History Usual Living Arrangement: Alone History of Recent Travel: No Home Medications - Allergies Allergies/Adverse Reactions: Allergies Allergy/AdvReac Type Severity Reaction Status Date / Time No Known Allergies Allergy Verified 12/02/18 18:44 - Home Medications Home Medications: Ambulatory Orders Aspirin Coated [Ecotrin -] 81 mg PO DAILY 08/08/15 Docusate Sodium [Colace -] 100 mg PO TID 08/08/15 Ezetimibe [Zetia] 10 mg PO DAILY 08/08/15 Metoprolol Tartrate [Lopressor -] 25 mg PO BID 08/08/15 Simvastatin [Zocor -] 20 mg PO HS 08/08/15 Escitalopram Oxalate [Lexapro -] 10 mg PO DAILY #30 tablet 05/13/18 Physical Exam-Neuro Vital Signs: Vital Signs Temperature 98.4 F 12/04/18 05:40 Pulse Rate 65 12/04/18 05:40 Respiratory Rate 18 12/04/18 05:40 Blood Pressure 103/67 12/04/18 05:40 O2 Sat by Pulse Oximetry (%) 98 12/03/18 21:00 Labs: CBC, BMP 12/03/18 12:15 12/03/18 12:15 INR, PTT INR 1.06 (0.83-1.09) 12/02/18 18:45 - Neuro Exam Level Of Consciousness: Yes: Alert (eyes opne, does not follow requests consistently, deaf and mute, left hemiplegia (arm > leg) ; ) Imaging - Results Cat Scan: Report Reviewed, Image Reviewed Problem List - Problems (1) Cerebrovascular accident, late effects Code(s): I69.90 - UNSPECIFIED SEQUELAE OF UNSPECIFIED CEREBROVASCULAR DISEASE (2) Hydrocephalus Code(s): G91.9 - HYDROCEPHALUS, UNSPECIFIED (3) Syncope and collapse determined by examination Code(s): R55 - SYNCOPE AND COLLAPSE Assessment/Plan 72 year old male- legally deaf and mute as per advocate, Micah Harris -knows him > 20yrs , HX OF CEREBRAL PALSY and left hemiplegia , extensive PMHx HTN, HLD, DM2, CAD s/p CABG, hearing impairment (simple communication by writing ) states he felt some mild chest discomfort and diaphoresis and fell to the ground. It is not clear of he lost consciousness. He did not hit his head. EMS states he was not able to get up, and signaled for help. EMS stated he was pale and diaphoretic, improved after IVF bolus. NO HX of brain surgery. lives home and has aide support; though advocate feels he needs more assistance/higher level care ; PT is his own guardian. HD CT Impression: No CT evidence of intracranial hemorrhage. At least moderate somewhat asymmetric dilatation of the lateral ventricles is noted - ? representing obstructive hydrocephalus versus central atrophy. Direct comparison with previous imaging studies is suggested if available from a different facility. Focal nonspecific attenuation of the right parietal calvarium is seen at the high convexity level. If the patient has not had prior surgery in that region additional evaluation utilizing a radionuclide bone scan is suggested. AP :hx of mild CP, left hemiplegia, legally deaf and mute, CABG, depression/ mood instability was admitted for syncope no clear evidence of [place] or seizure CT does show hydrocephalus -no clear HX of incontinence, as baseline cognitive disabilities so difficult decipher if there is progressive dementia. has had a few falls this yr ( x 4?) , no prior brain surgery . advocate is unaware of prior scans available / prior admissions [facility]--will check and see; Cerebral Palsy may results in congenital brain anomalies and ? if this is baseline for him; LP /shunt ideally to be avoided given his comorbidities but get Neurosurgical opinion as well living situation also to be addressed; live home with aide assistance , in past has refused group facility ; requires more services as per advocate but shows aggressive behavior when this is broached MICAH HOFFMAN [phone] DR BAJWA
[2018-12-04] MEDS: HEPARIN NA (PORCINE) 5,000 UNITS/ML 1ML VIAL SQ SCH ×2 (10:24→21:31)
[2018-12-04] MEDS: METOPROLOL TARTRATE 25 MG TABLET (FP) PO SCH ×2 (10:24→21:31)
[2018-12-04] MEDS: ESCITALOPRAM OXALATE 10 MG TABLET (FP) PO SCH (10:24)
[2018-12-04] MEDS: ASPIRIN COATED 81 MG TABLET.EC PO SCH (10:34)
[2018-12-04] MEDS: EZETIMIBE 10 MG TABLET (FP) PO SCH (10:34)
--- NOTE | 2018-12-04 11:39 | PN ---
Progress Note (short form) - Note Progress Note: pt seen/ examined chart reviewed all f/u noted Neurology consult noted/ appreciated. Pt well known to me. Vital Signs Temp 98.2 F 12/04/18 10:00 Pulse 62 12/04/18 10:00 Resp 18 12/04/18 10:00 BP 124/53 L 12/04/18 10:00 Pulse Ox 98 12/03/18 21:00 Intake & Output 12/03/18 12/03/18 12/04/18 11:59 23:59 11:59 Intake Total 680 Output Total 750 Balance 680 -750 Weight 185 lb Intake: IV 200 Normal Saline - 1,000 ml 200 @ 100 mls/hr IV ASDIR [facility] Rx#:[id number] Oral 480 Output: Urine 750 Void 750 Other: Voiding Method Urinal Toilet Toilet Bowel Movement Yes # Bowel Movements 1 Height 5 ft 3 in Body Mass Index (BMI) 32.8 Active Medications Aspirin (Ecotrin -) 81 mg PO DAILY [facility] Last Admin: 12/04/18 10:34 Dose: 81 mg Atorvastatin Calcium (Lipitor -) 10 mg PO HS [facility] Last Admin: 12/03/18 21:46 Dose: 10 mg Docusate Sodium (Colace -) 100 mg PO TID [facility] Last Admin: 12/04/18 05:42 Dose: 100 mg Ezetimibe (Zetia -) 10 mg PO DAILY [facility] Last Admin: 12/04/18 10:34 Dose: 10 mg Escitalopram Oxalate (Lexapro -) 10 mg PO DAILY [facility] Last Admin: 12/04/18 10:24 Dose: 10 mg Heparin Sodium (Porcine) (Heparin -) 5,000 unit SQ BID [facility] Last Admin: 12/04/18 10:24 Dose: 5,000 unit Sodium Chloride (Normal Saline -) 1,000 mls @ 100 mls/hr IV ASDIR [facility] Last Admin: 12/04/18 05:42 Dose: 100 mls/hr Metoprolol Tartrate (Lopressor -) 12.5 mg PO BID [facility] Last Admin: 12/04/18 10:24 Dose: 12.5 mg CBC, BMP 12/03/18 12:15 12/03/18 12:15 Physical Exam S1 s2 RRR Lungs clear Abd -soft, NT No edema awake. old deficit PLAN cardiac enzymes negative echo Cardiology and Neurology eval noted PT monitor Will get Neuro surgery Eval but doubt any intervention If stable - Anticipate d/c tomorrow Will follow D/c tele Discussed with Nursing staff also Problem List - Problems (1) Chest pain Code(s): R07.9 - CHEST PAIN, UNSPECIFIED Qualifiers: Chest pain type: unspecified Qualified Code(s): R07.9 - Chest pain, unspecified (2) Pre-syncope Code(s): R55 - SYNCOPE AND COLLAPSE (3) Syncope and collapse determined by examination Code(s): R55 - SYNCOPE AND COLLAPSE (4) Anxiety Code(s): F41.9 - ANXIETY DISORDER, UNSPECIFIED (5) Depressed Code(s): F32.9 - MAJOR DEPRESSIVE DISORDER, SINGLE EPISODE, UNSPECIFIED Qualifiers: Depression Type: major depressive disorder Active/Remission status: currently active Psychotic features: without psychotic features
--- NOTE | 2018-12-04 13:12 | PN ---
Progress Note (short form) - Note Progress Note: NEUROSURGERY CONSULT DICTATED Chart reviewed Pt examined Ct reviewed H/o HTN, HLD, CAD s/p CABG, CVA with residual left sided weakness, type II DM, GERD, anxiety, and depression was brought to ED after he was found in his hallway on the ground. C/o some mild chest discomfort and diaphoresis and fell to the ground. EMS reported pt was not able to get up initially. States that he occasional experiences H/A but no N/V. No significant change in gait per pt. Poor historian. PE: AF, VSS HEENT- NC/AT; Neck- supple; Cor- RR, chest incision healed; Lungs- CTA B; Abd- benign, obese; Ext- no sign of DVT A/A/Ox2 dysarthric speech CN- non-focal; Motor- L UE distal contracture, 4/5; Sensation- intact LT; DTR- hyporeflexic, B toes upgoing Troponin < 0.[address]- moderate to marked ventriculomegaly of lat and third > 4th ventricle ( R > L lat ventricle); mild-moderate cerebral atrophy; petriventricular small vessel disease C spine CT- spondylosis and DDD, no marked stenosis, no acute fx Ventriculomegaly, possible hydrocephalus, though appearance is chronic Given multiple medical issues and chronic head CT scan appearance, do not recommend more aggressive tx/shunt All questions answered at bedside
[2018-12-04] MEDS: ATORVASTATIN CA 10 MG TABLET (FP) PO SCH (21:31)
[2018-12-05] MEDS: DOCUSATE SODIUM 100 MG CAPSULE (FP) PO SCH ×3 (06:20→21:22)
--- NOTE | 2018-12-05 07:49 | PN ---
Progress Note (short form) - Note Progress Note: H/o HTN, HLD, CAD s/p CABG, CVA with residual left sided weakness, type II DM, GERD, anxiety, and depression was brought to ED after he was found in his hallway on the ground. C/o some mild chest discomfort and diaphoresis and fell to the ground. EMS reported pt was not able to get up initially. States that he occasional experiences H/A but no N/V. No significant change in gait per pt. Poor historian. PE: AF, VSS HEENT- NC/AT; Neck- supple; Cor- RR, chest incision healed; Lungs- CTA B; Abd- benign, obese; Ext- no sign of DVT A/A/Ox2 dysarthric speech CN- non-focal; Motor- L UE distal contracture, 4/5; Sensation- intact LT; DTR- hyporeflexic, B toes upgoing. Ambulates with steady but wide based gait-pull test Neurosx.consult appreciated/reviewed. No indication for neurosx.intervention, he requires PT/gait training Thank you, Taylor Carrillo MD
--- NOTE | 2018-12-05 09:00 | PN ---
Progress Note, Physician Chief Complaint: sitting in chair eating breakfast Shakes head "no" when asked about CP or SOB N-surgery note reviewed, appreciated. - Current Medication List Current Medications: Active Medications Aspirin (Ecotrin -) 81 mg PO DAILY [facility] Last Admin: 12/04/18 10:34 Dose: 81 mg Atorvastatin Calcium (Lipitor -) 10 mg PO HS [facility] Last Admin: 12/04/18 21:31 Dose: 10 mg Docusate Sodium (Colace -) 100 mg PO TID [facility] Last Admin: 12/05/18 06:20 Dose: 100 mg Ezetimibe (Zetia -) 10 mg PO DAILY [facility] Last Admin: 12/04/18 10:34 Dose: 10 mg Escitalopram Oxalate (Lexapro -) 10 mg PO DAILY [facility] Last Admin: 12/04/18 10:24 Dose: 10 mg Heparin Sodium (Porcine) (Heparin -) 5,000 unit SQ BID [facility] Last Admin: 12/04/18 21:31 Dose: 5,000 unit Metoprolol Tartrate (Lopressor -) 12.5 mg PO BID [facility] Last Admin: 12/04/18 21:31 Dose: 12.5 mg - Objective Vital Signs: Vital Signs Temperature 98.0 F 12/05/18 06:00 Pulse Rate 59 L 12/05/18 06:00 Respiratory Rate 20 12/05/18 06:00 Blood Pressure 129/78 12/05/18 06:00 O2 Sat by Pulse Oximetry (%) 95 12/04/18 19:48 Constitutional: Yes: No Distress Cardiovascular: Yes: Regular Rate and Rhythm Respiratory: Yes: CTA Bilaterally Gastrointestinal: Yes: Soft Edema: No Labs: CBC, BMP 12/03/18 12:15 12/03/18 12:15 INR, PTT INR 1.06 (0.83-1.09) 12/02/18 18:45 Assessment/Plan DATA: EKG sinus, low voltage, no ischemic changes echo nl LV/RV function,mild TR, mild AR CXR: no acute process carotid dopplers: no significant stenosis tele: sinus rudolph IMP/REC: 1. Fall: - unable to obtain further history - per chart was out in the heat, possibly vasovagal vs orthostatic, unknown if loss of consciousness - echo, carotid doppler unremarkable - neuro consulted, N-surgery reccs reviewed. - tele sinus rudolph - Metoprolol decreased, rates now in high 40s and low 50s, stable. No sig pauses. -Tele d/c'd on 12/04 2. CAD s/p CABG: - trop neg x 2, EKG no ischemic changes - continue aspirin, statin 3. HLD: - cont statin, zetia 4. DM: - manage per primary
--- NOTE | 2018-12-05 09:48 | CONS ---
DATE OF CONSULTATION: DATE OF DICTATION: 12/04/2018 REQUESTING PHYSICIAN: Carlitos Ribeior M.D. HORTICULTURE INSTRUCTOR: Kayden Kaur M.D., Neurosurgery CHIEF COMPLAINT: Ventriculomegaly. HISTORY OF PRESENT ILLNESS: The patient is a 72-year-old right-handed male with history of multiple medical issues, including hypertension, coronary artery disease, status post bypass placement, cerebrovascular disease, a stroke with residual left hemiparesis, hypercholesterolemia, type 2 diabetes, gastroesophageal reflux disease, as well as anxiety/depression, who was brought to the emergency room after he was found in the hallway on the ground. He had complaint of some mild chest discomfort and diaphoresis at the time he fell. He did not lose consciousness by report. He was not able to get up initially, according to EMS. The patient states that he occasionally experiences a headache, but no nausea or vomiting. There has been no significant change in his gait pattern, per the patient. He is a poor historian. He is at his functional status baseline. PAST MEDICAL HISTORY: Significant for hypertension, coronary artery disease, status post bypass, a stroke with left hemiparesis, gastroesophageal reflux disease, type 2 diabetes, hypercholesterolemia, depression and anxiety. CURRENT MEDICATIONS: Include subcutaneous heparin, Lexapro, Lopressor, Colace, Zetia, Lipitor, Ecotrin. ALLERGIES: There is no known drug allergy. FAMILY HISTORY: Noncontributory. SOCIAL HISTORY: He lives independently. He does not smoke or drink. He does not work. REVIEW OF SYSTEMS: Otherwise negative for major constitutional, head and neck, cardiovascular, pulmonary, gastrointestinal, genitourinary, endocrinological, neurological or psychological problems except for the above. PHYSICAL EXAMINATION: Vital Signs: Temperature is 98.2. HEENT: Examination shows him to be normocephalic, atraumatic. Anicteric. Neck: Supple, with no carotid bruits. Heart: Coronary examination demonstrated a regular rhythm. Respiratory: Lungs are clear bilaterally. Abdomen: Benign but obese. Extremities: Examination shows contracture of the distal left upper extremity. Distal pulses are 1+. There are no obvious signs of DVT. Neurologic: He is awake, alert and oriented x2. His speech is somewhat dysarthric. Cranial nerve examination is intact II through XII. Motor examination shows 5/5 strength except the left upper extremity, which is 4/5. Sensory examination is intact to light touch. Deep tendon reflexes are hyporeflexic throughout. Both toes are upgoing. Gait was not tested for safety reasons. Cerebellar examination demonstrated grossly intact [id number] examination bilaterally. DIAGNOSTIC STUDIES: Laboratory examination showed sodium to be 143 and potassium to be 4.2. BUN 15 and creatinine 1. White blood cell count is 5. Hemoglobin is 14.2. Platelet count is 166,000. INR is 1.06, and PTT is 34.4. Troponin was less than 0.02. CT scan of the head done on December 02 demonstrated moderate to marked ventriculomegaly, predominantly involving the lateral and 3rd ventricles. The right lateral ventricle is more dilated than the left, possibly secondary to his prior stroke. There is periventricular small vessel disease that is moderate in nature. There is mild cortical cerebral atrophy. There is also dilatation of the 4th ventricle as well. There is no transependymal CSF flow. CT scan of the cervical spine demonstrated degenerative disk disease and generalized spondylosis. There is no marked stenosis. There is no acute fracture. IMPRESSION: 1. Ventriculomegaly, with chronic computed tomography scan appearance. 2. Hypertension. 3. Coronary artery disease. 4. History of cerebrovascular accident. 5. Type 2 diabetes with obesity. 6. Hypercholesterolemia. 7. Depression/anxiety. RECOMMENDATIONS: The patient presents with chest discomfort and diaphoresis. He was reportedly not found to have acute cardiac ischemic events. He does complain of intermittent headaches, but he is at baseline. There is no nausea, vomiting or visual changes. The patient also states that he always has slight gait difficulty, but in general his gait has been stable. It is difficult to fully ascertain his memory because of his speech pattern at this time. CT scan demonstrated moderate to marked dilatation of the right greater than left lateral ventricles, as well as the 3rd ventricle. The 4th ventricle was somewhat dilated as well. All the appearance appears chronic at this time. I do not, therefore, recommend any neurosurgical intervention given his underlying multiple medical issues. The above was discussed with the patient at bedside and all questions were answered. KAYDEN KAUR M.D. OLGA/[id number] MTDD
--- NOTE | 2018-12-05 10:11 | PN ---
Progress Note (short form) - Note Progress Note: NEUROSURGERY H/o HTN, HLD, CAD s/p CABG, CVA with residual left sided weakness, type II DM, GERD, anxiety, and depression was brought to ED after he was found in his hallway on the ground. C/o some mild chest discomfort and diaphoresis and fell to the ground. EMS reported pt was not able to get up initially. States that he occasional experiences H/A but no N/V. No significant change in gait per pt. No new complaint. PE: AF, VSS Pleasant, sitting up, more conversant today HEENT- NC/AT; Neck- supple; Cor- RR, chest incision healed; Lungs- CTA B; Abd- benign, obese; Ext- no sign of DVT A/A/Ox2 dysarthric speech CN- non-focal; Motor- L UE distal contracture, 4/5; Sensation- intact LT; DTR- hyporeflexic, B toes upgoing Troponin < 0.[address]- moderate to marked ventriculomegaly of lat and third > 4th ventricle ( R > L lat ventricle); mild-moderate cerebral atrophy; petriventricular small vessel disease; no transependymal CSF flow Ventriculomegaly, possible hydrocephalus, though appearance is chronic Given multiple medical issues and chronic head CT scan appearance, do not recommend more aggressive tx/shunt All questions answered at bedside
[2018-12-05] MEDS: HEPARIN NA (PORCINE) 5,000 UNITS/ML 1ML VIAL SQ SCH ×2 (10:29→21:25)
[2018-12-05] MEDS: METOPROLOL TARTRATE 25 MG TABLET (FP) PO SCH ×2 (10:30→21:22)
[2018-12-05] MEDS: EZETIMIBE 10 MG TABLET (FP) PO SCH (10:30)
[2018-12-05] MEDS: ESCITALOPRAM OXALATE 10 MG TABLET (FP) PO SCH (10:30)
[2018-12-05] MEDS: ASPIRIN COATED 81 MG TABLET.EC PO SCH (10:30)
--- NOTE | 2018-12-05 10:46 | DS ---
Physical Examination Vital Signs: Vital Signs Temperature 98.0 F 12/05/18 06:00 Pulse Rate 59 L 12/05/18 06:00 Respiratory Rate 20 12/05/18 06:00 Blood Pressure 129/78 12/05/18 06:00 O2 Sat by Pulse Oximetry (%) 95 12/04/18 19:48 Labs: CBC, BMP 12/03/18 12:15 12/03/18 12:15 Discharge Summary Reason For Visit: SYNCOPE AND COLLAPSE DETERMINED BY EXAMINATION/ Current Active Problems Cerebrovascular accident, late effects (Acute) Chest pain (Acute) Hydrocephalus (Acute) Pre-syncope (Acute) Syncope and collapse determined by examination (Acute) Condition: Stable - Instructions - Home Medications Comprehensive Discharge Medication List: Ambulatory Orders Aspirin Coated [Ecotrin -] 81 mg PO DAILY 08/08/15 Docusate Sodium [Colace -] 100 mg PO TID 08/08/15 Ezetimibe [Zetia] 10 mg PO DAILY 08/08/15 Metoprolol Tartrate [Lopressor -] 25 mg PO BID 08/08/15 Simvastatin [Zocor -] 20 mg PO HS 08/08/15 Escitalopram Oxalate [Lexapro -] 10 mg PO DAILY #30 tablet 05/13/18
[2018-12-05] MEDS: ATORVASTATIN CA 10 MG TABLET (FP) PO SCH (21:25)
[2018-12-06] MEDS: DOCUSATE SODIUM 100 MG CAPSULE (FP) PO SCH (05:37)
[2018-12-06 08:25] VITALS: BP 129/56; PULSE 54; TEMP 98
--- NOTE | 2018-12-06 08:40 | PN ---
Progress Note, Physician Chief Complaint: No acute distress - Current Medication List Current Medications: Active Medications Aspirin (Ecotrin -) 81 mg PO DAILY [facility] Last Admin: 12/05/18 10:30 Dose: 81 mg Atorvastatin Calcium (Lipitor -) 10 mg PO HS [facility] Last Admin: 12/05/18 21:25 Dose: 10 mg Docusate Sodium (Colace -) 100 mg PO TID [facility] Last Admin: 12/06/18 05:37 Dose: Not Given Ezetimibe (Zetia -) 10 mg PO DAILY [facility] Last Admin: 12/05/18 10:30 Dose: 10 mg Escitalopram Oxalate (Lexapro -) 10 mg PO DAILY [facility] Last Admin: 12/05/18 10:30 Dose: 10 mg Heparin Sodium (Porcine) (Heparin -) 5,000 unit SQ BID [facility] Last Admin: 12/05/18 21:25 Dose: 5,000 unit Metoprolol Tartrate (Lopressor -) 12.5 mg PO BID [facility] Last Admin: 12/05/18 21:22 Dose: Not Given - Objective Vital Signs: Vital Signs Temperature 98 F 12/06/18 08:24 Pulse Rate 54 L 12/06/18 08:24 Respiratory Rate 20 12/06/18 08:24 Blood Pressure 129/56 L 12/06/18 08:24 O2 Sat by Pulse Oximetry (%) 96 12/05/18 21:00 Constitutional: Yes: Calm Cardiovascular: Yes: Regular Rate and Rhythm Respiratory: Yes: CTA Bilaterally Gastrointestinal: Yes: Soft Edema: No Neurological: Yes: Alert, Oriented ...Motor Strength: WNL Labs: CBC, BMP 12/03/18 12:15 12/03/18 12:15 INR, PTT INR 1.06 (0.83-1.09) 12/02/18 18:45 - ....Imaging EKG: Image Reviewed Assessment/Plan DATA: EKG sinus, low voltage, no ischemic changes echo nl LV/RV function,mild TR, mild AR CXR: no acute process carotid dopplers: no significant stenosis tele: sinus rudolph IMP/REC: 1. Fall: - unable to obtain further history - per chart was out in the heat, possibly vasovagal vs orthostatic, unknown if loss of consciousness - echo, carotid doppler unremarkable - neuro consulted, N-surgery reccs reviewed. - tele sinus rudolph - Metoprolol decreased, rates now in high 40s and low 50s, stable. No sig pauses. -Tele d/c'd on 12/04 2. CAD s/p CABG: - trop neg x 2, EKG no ischemic changes - continue aspirin, statin 3. HLD: - cont statin, zetia 4. DM: - manage per primary
[2018-12-06] MEDS: HEPARIN NA (PORCINE) 5,000 UNITS/ML 1ML VIAL SQ SCH (09:06)
[2018-12-06] MEDS: ASPIRIN COATED 81 MG TABLET.EC PO SCH (09:06)
[2018-12-06] MEDS: ESCITALOPRAM OXALATE 10 MG TABLET (FP) PO SCH (09:06)
[2018-12-06] MEDS: EZETIMIBE 10 MG TABLET (FP) PO SCH (09:06)
[2018-12-06] MEDS: METOPROLOL TARTRATE 25 MG TABLET (FP) PO SCH (09:08)
--- NOTE | 2018-12-06 10:54 | PN ---
Progress Note (short form) - Note Progress Note: awake and no distress no chest pain no headaches no dizziness Vital Signs - 24 hr 12/05/18 12/05/18 12/05/18 15:00 17:49 21:00 Temperature 98.2 F 98.4 F Pulse Rate 58 L 49 L Respiratory 18 18 18 Rate Blood Pressure 106/66 101/56 L O2 Sat by Pulse 96 Oximetry (%) 12/05/18 12/06/18 12/06/18 22:00 06:00 08:24 Temperature 98.1 F 97.7 F 98 F Pulse Rate 47 L 50 L 54 L Respiratory 20 20 20 Rate Blood Pressure 96/49 L 147/54 L 129/56 L O2 Sat by Pulse Oximetry (%) Current Medications Generic Name Dose Route Start Last Admin Trade Name Emilq PRN Reason Stop Dose Admin Aspirin 81 mg 12/03/18 10:00 12/06/18 09:06 Ecotrin - PO 81 mg DAILY MISSY Administration Atorvastatin Calcium 10 mg 12/02/18 22:00 12/05/18 21:25 Lipitor - PO 10 mg HS MISSY Administration Docusate Sodium 100 mg 12/02/18 22:00 12/06/18 05:37 Colace - PO Not Given TID MISSY Ezetimibe 10 mg 12/03/18 10:00 12/06/18 09:06 Zetia - PO 10 mg DAILY [facility] Administration Escitalopram Oxalate 10 mg 12/03/18 10:00 12/06/18 09:06 Lexapro - PO 10 mg DAILY MISSY Administration Heparin Sodium (Porcine) 5,000 unit 12/02/18 22:00 12/06/18 09:06 Heparin - SQ 5,000 unit BID MISSY Administration Metoprolol Tartrate 12.5 mg 12/03/18 16:07 12/06/18 09:08 Lopressor - PO Not Given BID MISSY Laboratory Results - last 24 hr 12/05/18 17:17 POC Glucometer 130 S1 s2 RRR Lungs clear Abd -soft, NT No edema Moves all extremities PLAN work up negative stable for dc home Problem List - Problems (1) Chest pain Code(s): R07.9 - CHEST PAIN, UNSPECIFIED Qualifiers: Chest pain type: unspecified Qualified Code(s): R07.9 - Chest pain, unspecified (2) Pre-syncope Code(s): R55 - SYNCOPE AND COLLAPSE (3) Syncope and collapse determined by examination Code(s): R55 - SYNCOPE AND COLLAPSE (4) Anxiety Code(s): F41.9 - ANXIETY DISORDER, UNSPECIFIED (5) Depressed Code(s): F32.9 - MAJOR DEPRESSIVE DISORDER, SINGLE EPISODE, UNSPECIFIED Qualifiers: Depression Type: major depressive disorder Active/Remission status: currently active Psychotic features: without psychotic features
== END 2018-12-06 11:59 | disposition home or self-care (01) | DRG 57 ==
LOC: JER 18:17 → JERBED 21:33 → OBSVTOIN 21:47 → J4S 12-03 15:50
PROVIDERS: ADMIT Internal Medicine; ATTEND Internal Medicine
DX: G91.9 Hydrocephalus, unspecified (principal); I69.354 Hemiplegia and hemiparesis following cerebral infarction affecting left non-dominant side; I25.10 Atherosclerotic heart disease of native coronary artery without angina pectoris; Z95.1 Presence of aortocoronary bypass graft; I10 Essential (primary) hypertension; E78.5 Hyperlipidemia, unspecified; E11.9 Type 2 diabetes mellitus without complications; K21.9 Gastro-esophageal reflux disease without esophagitis; H91.90 Unspecified hearing loss, unspecified ear; F41.9 Anxiety disorder, unspecified; F32.9 Major depressive disorder, single episode, unspecified; Z87.891 Personal history of nicotine dependence; I69.392 Facial weakness following cerebral infarction; E66.9 Obesity, unspecified; Z68.32 Body mass index [BMI] 32.0-32.9, adult; E86.0 Dehydration; R00.1 Bradycardia, unspecified; M41.9 Scoliosis, unspecified
CPT/HCPCS: 36415; 70450-TC; 71045-TC-FY; 72125-TC; 80048; 80053; 80061; 81003; 82550; 82962; 83721; 83735; 83880; 84484; 85025; 85610; 85730; 93005; 93010; 93306-TC; 93880-TC; 99285-25; G0378; J1644; J7030

== ENCOUNTER 2019-06-08 18:59 | Inpatient (IN) | payer OTHER ==
--- NOTE | 2019-06-08 19:24 | PDOC ---
Rapid Medical Evaluation Time Seen by Provider: 06/08/19 19:20 Medical Evaluation: Allergies Allergy/AdvReac Type Severity Reaction Status Date / Time No Known Allergies Allergy Verified 12/02/18 18:44 06/08/19 19:20 This patient had brief evaluation by me cc: " not feeling well" HPI: Patient brought in by ambulance, as per ems personnel patient mute and deaf, and indicated in writing that he wanted to go to the hospital. PE: appears well in no apparent distress makes eye contact unlabored breathing orders: none This patient will proceed to the emergency room for further evaluation,. Discharge Disposition - Diagnosis Pain - Referrals - Patient Instructions - Post Discharge Activity
--- NOTE | 2019-06-08 22:15 | PDOC ---
History of Present Illness - General Chief Complaint: Pain Stated Complaint: SICK Time Seen by Provider: 06/08/19 19:20 History Source: Patient, Old Records, Other, Primary Care Provider Exam Limitations: Other (Suspected baseline mental status) - History of Present Illness Initial Comments: HPI: 73 y/o male presenting to [facility] ER via EMS from private residence complaining of not feeling well. Pt is deaf, mute, and has a h/o of cerebral palsy. Pt initially indicated he spoke ASL. Attempted to converse via video palm gatherer, but then it became clear the pt did not speak ASL. Repeatedly said "pain" and pointed to his abdomen. Called and spoke to the pt's home health aide, Joleen, who said pt stopped taking all of his medications on Friday. Unable to provide further detail regarding acute symptoms. Called and left message for pt's contact King Harris. No call back received. Call and spoke to pt's PCP, Dr. Tre Ribeiro. Acknowledged pt was recently discharged from [facility] inpatient psych pugh, but could not provide any further details. Requested the pt be admitted as he was unlikely to be a safe discharge. Medical Hx: - HTN - HLD - DM2 - CAD s/p CABG - CVA with residual left sided weakness - hearing impairment - GERD - Anxiety - Depression - Cerebral Palsey Review of Systems: Unable to obtain Physical Examination: Vital signs and nursing notes reviewed. Constitutional- Nontoxic adult male in no acute distress or obvious discomfort. Found semi-fowlers on hospital stretcher. Head- Normocephalic. No obvious external signs of trauma. Neck- Supple, trachea is midline. No JVD or thyromegaly. Cardiovascular / Chest- Regular rate and regular rhythm. No murmur, rubs, clicks , or gallops. Peripheral pulses- radial pulses full. Respiratory- Breathing unlabored. Equal chest rise and fall. Clear to auscultation bilaterally. No stridor, no wheezing, no rhonchi. Gastrointestinal- abdomen is soft, non-tender, non-distended. No hepatosplenomegaly. No pulsatile masses. No overlying skin lesions or obvious signs of trauma. Neuro- Alert. Unable to assess orientation. Moving all four extremities spontaneously. Skin- Warm, dry, and intact. Psych- Dressed and groomed appropriately. MDM: 73 y/o male presenting with one day of nausea, vomiting, and abdominal pain. HPI limited by communication difficulties. Afebrile. Vitals remarkable for borderline tachycardia without hypotension. Physical exam as described above. No acute abdominal signs, but will obtain CTAP given vagueness of symptoms. CTAP revealed gallbladder distention. Will eval further with RUQ U/S. Noted normal LFTs. Lipase elevated but not 3x normal. Low suspicion for pancreatitis. Will admit the pt for intractable abdominal pain. Pt signed out to VANE Pardo. RUQ U/S pending at time of admission. Pj Roa M.D., PGY2 Emergency Medicine Resident Past History - Past Medical History Allergies/Adverse Reactions: Allergies Allergy/AdvReac Type Severity Reaction Status Date / Time No Known Allergies Allergy Verified 06/08/19 19:22 Home Medications: Ambulatory Orders Aspirin Coated [Ecotrin -] 81 mg PO DAILY 08/08/15 Docusate Sodium [Colace -] 100 mg PO TID 08/08/15 Ezetimibe [Zetia] 10 mg PO DAILY 08/08/15 Simvastatin [Zocor -] 20 mg PO HS 08/08/15 Escitalopram Oxalate [Lexapro -] 10 mg PO DAILY #30 tablet 05/13/18 Metoprolol Tartrate [Lopressor -] 12.5 mg PO BID #60 tablet 12/05/18 Anemia: No Asthma: No Cancer: No Cardiac Disorders: Yes (CABG) CVA: Yes COPD: No CHF: No Dementia: No Diabetes: Yes (NID) GI Disorders: Yes (gerd) Disorders: No HTN: Yes Hypercholesterolemia: Yes Liver Disease: No Seizures: No Thyroid Disease: No Other medical history: Cerebral palsy - Surgical History Cardiac Surgery: Yes (triple bypass) Cholecystectomy: No - Immunization History Immunization Up to Date: No - Psycho Social/Smoking Cessation Hx Smoking Status: No Smoking History: Unknown if ever smoked Have you smoked in the past 12 months: No Number of Cigarettes Smoked Daily: 0 If you are a former smoker, when did you quit?: 40 + YEARS Information on smoking cessation initiated: No Hx Alcohol Use: No Drug/Substance Use Hx: No Substance Use Type: None Hx Substance Use Treatment: No *Physical Exam - Vital Signs Last Vital Signs Temp Pulse Resp BP Pulse Ox 99.1 F 103 H 20 124/82 91 L 06/08/19 19:23 06/08/19 19:23 06/08/19 19:23 06/08/19 19:23 06/08/19 19:23 ED Treatment Course - LABORATORY CBC & Chemistry Diagram: 06/09/19 08:15 06/10/19 08:00 - RADIOLOGY Radiograph Interpretation: CTAP THIS IS A PRELIMINARY REPORT FROM [facility] DATE OF SERVICE: 2019-06-09 02:18:49 IMAGES: [id number] EXAM: ABDOMEN \\T\\ PELVIS CT WITH CONTR HISTORY: Abdominal pain with nausea and vomiting COMPARISON: None. FINDINGS There is no bowel obstruction or inflammation. Normal appendix. Negative for diverticulitis or colitis. Normal kidneys urinary tracts and urinary bladder. Normal liver. The gallbladder is somewhat distended. No gallstones are seen. However they can be obscured on CT. Correlate with right upper quadrant pain. Ultrasound if indicated. Normal spleen. Normal adrenal glands. Normal pancreas. No free intraperitoneal air or free fluid. Note made of mild L5 anterolisthesis with bilateral L5 spondylolysis. One or more of the following dose reduction techniques were used: automated exposure control, adjustment of the mA and/or kV according to patient size, use of iterative reconstructive technique. THIS DOCUMENT HAS BEEN ELECTRONICALLY SIGNED Roberto Dominguez MD 06/09/2019 03:07 EST Discharge - Discharge Information Problems reviewed: Yes Clinical Impression/Diagnosis: Abdominal pain Qualifiers: Abdominal location: generalized Qualified Code(s): R10.84 - Generalized abdominal pain Condition: Stable Disposition: [facility] - Admission Yes - Follow up/Referral - Patient Discharge Instructions - Post Discharge Activity
[2019-06-08] MEDS ORDERED: LACTATED RINGERS SOLUTION 1000 ML INFUS.BAG IV ONE (23:07)
[2019-06-08] MEDS ORDERED: ACETAMINOPHEN 1000 MG/100 ML VIAL (NON FORMULARY) IVPB ONE (23:07)
--- NOTE | 2019-06-08 23:28 | PDOC ---
Attending Attestation - Resident Resident Name: BishopPj - ED Attending Attestation I have performed the following: I have examined & evaluated the patient, The case was reviewed & discussed with the resident, I agree w/resident's findings & plan, Exceptions are as noted - HPI HPI: 06/08/19 23:59 73-year-old male was brought in by ambulance from home where he is cared for by a home health aide because he is deaf mute and has left-sided contracted limbs and weakness that is chronic. Patient does read lips he does not read Greenlandic sign language He states that he had some nausea and vomited he puts his hand on his mid abdomen when asked if he had any pain anywhere. We did speak to his PCP Dr. Carlitos Ribeiro who states that he spent numerous days over [facility] Patient does have a history of psychiatric issues - Physicial Exam PE: 06/09/19 00:19 Alert 73-year-old male who is deaf and mute brought in by ambulance from his home The patient does read lips and states that he has had nausea and vomiting and some mid abdominal pain x1 day Head normocephalic, nontraumatic Neck no bruits Lungs are clear to auscultation CVS regular rate rhythm S1-S2 Skin warm and warm Abdomen, no rebound or guarding appreciated Extremities contractures of his left arm and leg Neuro alert, deaf, chronic left-sided weakness with contracture of his arm 06/09/19 00:24 - Medical Decision Making 06/09/19 00:24 73-year-old male with 1 day history of nausea and vomiting, benign abdominal exam, no fevers CBC, comp, IV Zofran and fluids and reassessment 06/09/19 00:52 CBC is unremarkable, no anemia, no leukocytosis Chemistries are unremarkable electrolytes are within normal limits, glucose and renal function are unremarkable CT SCAN PENDING 06/09/19 02:51
[2019-06-09 00:08] LABS: BASO % 0.3 % (0-2.0); EOS % 1.8 % (0-4.5); HEMATOCRIT 42.6 % (35.4-49); HEMOGLOBIN 14.8 GM/dL (11.7-16.9); LYMPH % 25.9 % (8-40); MCH 31.6 pg (25.7-33.7); MCHC 34.8 g/dl (32.0-35.9); MEAN CELL VOLUME 90.8 fl (80-96); MEAN PLT VOLUME 8.7 fl (7.5-11.1); MONO % 11.7 % (3.8-10.2); NEUT % 60.3 % (42.8-82.8); PLATELET COUNT 229 K/MM3 (134-434); RBC 4.69 M/mm3 (4.00-5.60); RDW 12.9 % (11.9-15.9); WHITE BLOOD COUNT 8.6 K/mm3 (4.0-10.0)
[2019-06-09] MEDS ORDERED: ACETAMINOPHEN INJECTION 100 ML IVPB ONE (00:35)
[2019-06-09 00:37] LABS: ALBUMIN 3.7 g/dl (3.4-5.0); ALK PHOS 60 U/L (45-117); ANION GAP 9 MMOL/L (8-16); BILIRUBIN,TOTAL 0.5 mg/dL (0.2-1); BLOOD UREA NITROGEN 20.4 mg/dL (7-18); CALCIUM 9.1 mg/dL (8.5-10.1); CHLORIDE 104 mmol/L (98-107); CO2 26 mmol/L (21-32); CREATININE 1.2 mg/dL (0.55-1.3); GLUCOSE,RANDOM 106 mg/dL (74-106); MAGNESIUM 2.2 mg/dL (1.8-2.4); PHOSPHOROUS 4.2 mg/dL (2.5-4.9); POTASSIUM 4.3 mmol/L (3.5-5.1); SGOT/AST 32 U/L (15-37); SGPT/ALT 38 U/L (13-61); SODIUM 139 mmol/L (136-145); TOT PROT 7.1 g/dl (6.4-8.2)
--- NOTE | 2019-06-09 05:18 | HP ---
Admitting History and Physical - Primary Care Physician PCP: Carlitos Ribeiro - Admission Chief Complaint: Abdominal Pain History of Present Illness: This is a 73 y/o man with a PMHx of CP, Deaf Mute, CVA (L-sided residual), CAD s /p CABG, HTN, HLD, T2DM, GERD, Anxiety, Depression. Who presents to the ED complaining of not feeling well. Per ED record: Pt initially indicated he spoke ASL. Attempted to converse via video diplomatic interpreter/translator, but then it became clear the pt did not speak ASL. Repeatedly said "pain" and pointed to his abdomen. Called and spoke to the pt's home health aide, Joleen, who said pt stopped taking all of his medications on Friday. Unable to provide further detail regarding acute symptoms. Called and left message for pt's contact King Harris. No call back received. Call and spoke to pt's PCP, Dr. Tre Ribeiro. Acknowledged pt was recently discharged from [facility] inpatient psych pugh, but could not provide any further details. Requested the pt be admitted as he was unlikely to be a safe discharge. 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) Cardiovascular: Yes: CAD, HTN ENT: Yes: Other Endocrine: Yes: Diabetes Mellitus - Past Surgical History Past Surgical History: Yes: CABG - Smoking History Smoking history: Unknown if ever smoked Have you smoked in the past 12 months: No Aproximately how many cigarettes per day: 0 If you are a former smoker, when did you quit?: 40 + YEARS - Alcohol/Substance Use Hx Alcohol Use: No History of Substance Use: reports: None - Social History Usual Living Arrangement: Yes: Alone Do you think of yourself as: Declined to answer ADL: Support Services History of Recent Travel: No Home Medications - Allergies Allergies/Adverse Reactions: Allergies Allergy/AdvReac Type Severity Reaction Status Date / Time No Known Allergies Allergy Verified 06/08/19 19:22 - Home Medications Home Medications: Ambulatory Orders Aspirin Coated [Ecotrin -] 81 mg PO DAILY 08/08/15 Docusate Sodium [Colace -] 100 mg PO TID 08/08/15 Ezetimibe [Zetia] 10 mg PO DAILY 08/08/15 Simvastatin [Zocor -] 20 mg PO HS 08/08/15 Escitalopram Oxalate [Lexapro -] 10 mg PO DAILY #30 tablet 05/13/18 Metoprolol Tartrate [Lopressor -] 12.5 mg PO BID #60 tablet 12/05/18 Family Medical History Family History: Unable to Obtain Review of Systems - Review of Systems Constitutional: reports: No Symptoms Eyes: reports: No Symptoms HENT: reports: No Symptoms Neck: reports: No Symptoms Cardiovascular: reports: No Symptoms Respiratory: reports: No Symptoms Gastrointestinal: reports: Abdominal Pain Genitourinary: reports: No Symptoms Breasts: reports: No Symptoms Reported Musculoskeletal: reports: No Symptoms Integumentary: reports: No Symptoms Neurological: reports: No Symptoms Endocrine: reports: No Symptoms Hematology/Lymphatic: reports: No Symptoms Physical Examination Vital Signs: Vital Signs Temperature 99.7 F H 06/08/19 23:12 Pulse Rate 80 06/08/19 23:12 Respiratory Rate 18 06/08/19 23:12 Blood Pressure 115/77 06/08/19 23:12 O2 Sat by Pulse Oximetry (%) 96 06/08/19 23:12 Constitutional: Yes: No Distress, Calm Eyes: Yes: Conjunctiva Clear, PERRL HENT: Yes: WNL, Atraumatic, Normocephalic Neck: Yes: WNL, Supple, Trachea Midline Cardiovascular: Yes: WNL, Regular Rate and Rhythm, S1, S2 Respiratory: Yes: WNL, Regular, CTA Bilaterally Gastrointestinal: Yes: Tenderness, Tenderness, Epigastrium ...Rectal Exam: Yes: Deferred Renal/: Yes: WNL Breast(s): Yes: WNL Musculoskeletal: Yes: Muscle Weakness (chronic), Other (left arm and leg contractures) Extremities: Yes: Other (contracture of left arm and left leg) Edema: No Peripheral Pulses WNL: Yes Integumentary: Yes: WNL Neurological: Yes: Alert, Other (deaf, mute- baseline) Labs: CBC, BMP 06/08/19 23:50 06/08/19 23:50 Imaging - Results Chest X-ray: Report Reviewed, Image Reviewed Cat Scan: Report Reviewed, Image Reviewed EKG: Pending Problem List - Problems (1) Abdominal pain Assessment/Plan: Likely secondary to biliary colic vs pancreatitis vs gastritis CTAP report- slightly distended gallbladder without evidence of calculi. Sonographic follow-up recommended No evidence of acute pathology within the abdomen or pelvis. Gallbladder US-pending Lipase 609 No leukocytosis, no neutrophilia UA- neg Appreciate GI consult NPO Continue IVF Ofirmev, Zofran prn Monitor CBC, BMP Monitor vitals Code(s): R10.9 - UNSPECIFIED ABDOMINAL PAIN Qualifiers: Abdominal location: generalized Qualified Code(s): R10.84 - Generalized abdominal pain (2) Cerebral palsy Assessment/Plan: Will continue to monitor and treat with interventions accordingly Fall Precautions Code(s): G80.9 - CEREBRAL PALSY, UNSPECIFIED (3) Anxiety Assessment/Plan: stable Continue Lexapro when med is verified Monitor QT interval Code(s): F41.9 - ANXIETY DISORDER, UNSPECIFIED (4) Borderline personality disorder in adult Assessment/Plan: Consider Psych consult Continue Lexapro when med is verified Code(s): F60.3 - BORDERLINE PERSONALITY DISORDER (5) Cerebrovascular accident, late effects Assessment/Plan: Will continue to monitor and treat with interventions accordingly Fall Precautions Code(s): I69.90 - UNSPECIFIED SEQUELAE OF UNSPECIFIED CEREBROVASCULAR DISEASE (6) HTN (hypertension) Assessment/Plan: stable Monitor BP Continue Metoprolol with parameters, when med is verified Monitor renal function Code(s): I10 - ESSENTIAL (PRIMARY) HYPERTENSION (7) HLD (hyperlipidemia) Assessment/Plan: stable Continue statin, when verified Monitor LFTs Code(s): E78.5 - HYPERLIPIDEMIA, UNSPECIFIED Assessment/Plan This is a 73 y/o man with a PMHx of CP, Deaf Mute, CVA (L-sided residual), CAD s /p CABG, HTN, HLD, T2DM, GERD, Anxiety, Depression. Admitted to [facility] for Abdominal Pain for further evaluation of their emergent condition. Plan: See Problem List FEN D51/2NS Replete lytes prn NPO DVT ppx SCDs Heparin SQ Dispo: Requires Inpatient Care Visit type - Emergency Visit Emergency Visit: Yes ED Registration Date: 06/08/19 Care time: The patient presented to the Emergency Department on the above date and was hospitalized for further evaluation of their emergent condition. - New Patient This patient is new to me today: Yes Date on this admission: 06/09/19 - Critical Care Critical Care patient: No
[2019-06-09 05:29] LABS: LIPASE 609 U/L (73-393)
[2019-06-09 08:35] LABS: BASO % 0.3 % (0-2.0); EOS % 3.4 % (0-4.5); HEMATOCRIT 42.6 % (35.4-49); HEMOGLOBIN 14.8 GM/dL (11.7-16.9); LYMPH % 28.6 % (8-40); MCH 31.7 pg (25.7-33.7); MCHC 34.7 g/dl (32.0-35.9); MEAN CELL VOLUME 91.1 fl (80-96); MEAN PLT VOLUME 8.7 fl (7.5-11.1); MONO % 9.8 % (3.8-10.2); NEUT % 57.9 % (42.8-82.8); PLATELET COUNT 213 K/MM3 (134-434); RBC 4.68 M/mm3 (4.00-5.60); RDW 12.9 % (11.9-15.9); WHITE BLOOD COUNT 5.6 K/mm3 (4.0-10.0)
[2019-06-09 08:55] LABS: BLOOD UREA NITROGEN 15.6 mg/dL (7-18); CALCIUM 9.2 mg/dL (8.5-10.1); CREATININE 1.1 mg/dL (0.55-1.3)
[2019-06-09 10:25] VITALS: BMI 29.7
--- NOTE | 2019-06-09 10:38 | EKG ---
Test Reason : Blood Pressure : / mmHG Vent. Rate : 082 BPM Atrial Rate : 082 BPM P-R Int : 170 ms QRS Dur : 092 ms QT Int : 362 ms P-R-T Axes : 061 028 058 degrees QTc Int : 422 ms NORMAL SINUS RHYTHM NORMAL ECG WHEN COMPARED WITH ECG OF 02-DEC-2018 18:30, NO SIGNIFICANT CHANGE WAS FOUND Confirmed by TERRI RAMOS MD ([id number]) on 06/09/2019 10:38:27 AM Referred By: Confirmed By:TERRI RAMOS MD
[2019-06-09 10:55] LABS: URINE APPEARANCE CLEAR; URINE BILIRUBIN NEGATIVE (NEGATIVE); URINE COLOR YELLOW; URINE GLUCOSE (UA) NEGATIVE (NEGATIVE)
[2019-06-09 10:56] LABS: URINE KETONE 15 mg/dl (NEGATIVE); URINE LEUK ESTERASE NEGATIVE (NEGATIVE); URINE NITRITE NEGATIVE (NEGATIVE); URINE PROTEIN NEGATIVE (NEGATIVE)
[2019-06-09 10:57] LABS: EPI CELLS 0.8 /HPF (0-5/HPF); HYALINE CASTS 0.35 /lpf (0-8); URINE BACTERIA 2.6 /hpf (NEGATIVE); URINE RBC 2.4 /hpf (0-4); URINE WBC 0.7 /hpf (0-5)
--- NOTE | 2019-06-09 12:33 | PN ---
Progress Note (short form) - Note Progress Note: events noted Admitted for abd pain Kept NPO hungry asking for food no distress Vital Signs - 24 hr 06/08/19 06/08/19 06/09/19 19:23 23:12 08:44 Temperature 99.1 F 99.7 F H 98.0 F Pulse Rate 103 H Pulse Rate [ 80 69 Apical] Respiratory 20 18 18 Rate Blood Pressure 124/82 Blood Pressure 115/77 126/74 [Right Arm] O2 Sat by Pulse 91 L 96 95 Oximetry (%) 06/09/19 10:00 Temperature 98.2 F Pulse Rate 66 Pulse Rate [ Apical] Respiratory 20 Rate Blood Pressure 118/67 Blood Pressure [Right Arm] O2 Sat by Pulse Oximetry (%) Laboratory Results - last 24 hr 06/08/19 06/08/19 06/09/19 23:50 23:50 05:20 WBC 8.6 RBC 4.69 Hgb 14.8 Hct 42.6 MCV 90.8 MCH 31.6 MCHC 34.8 RDW 12.9 Plt Count 229 D MPV 8.7 Absolute Neuts (auto) 5.2 Neutrophils % 60.3 Lymphocytes % 25.9 Monocytes % 11.7 H Eosinophils % 1.8 Basophils % 0.3 Nucleated RBC % 0 Sodium 139 Potassium 4.3 Chloride 104 Carbon Dioxide 26 Anion Gap 9 BUN 20.4 H Creatinine 1.2 Est GFR (CKD-EPI)AfAm 69.60 Est GFR (CKD-EPI)NonAf 60.05 Random Glucose 106 Calcium 9.1 Phosphorus 4.2 Magnesium 2.2 Total Bilirubin 0.5 AST 32 ALT 38 Alkaline Phosphatase 60 Creatine Kinase 141 Troponin I < 0.02 Total Protein 7.1 Albumin 3.7 Lipase 609 H Urine Color Urine Appearance Urine pH Ur Specific [place] Urine Protein Urine Glucose (UA) Urine Ketones Urine Blood Urine Nitrite Urine Bilirubin Urine Urobilinogen Ur Leukocyte Esterase Urine WBC (Auto) Urine RBC (Auto) Urine Casts (Auto) U Epithel Cells (Auto) U Sm Round Cell (Auto) Urine Bacteria (Auto) Influenza A (Rapid) Negative Influenza B (Rapid) Negative 06/09/19 06/09/19 06/09/19 07:30 08:15 08:15 WBC 5.6 RBC 4.68 Hgb 14.8 Hct 42.6 MCV 91.1 MCH 31.7 MCHC 34.7 RDW 12.9 Plt Count 213 MPV 8.7 Absolute Neuts (auto) 3.3 Neutrophils % 57.9 Lymphocytes % 28.6 Monocytes % 9.8 Eosinophils % 3.4 D Basophils % 0.3 Nucleated RBC % 0 Sodium 139 Potassium 4.0 Chloride 104 Carbon Dioxide 29 Anion Gap 6 L BUN 15.6 Creatinine 1.1 Est GFR (CKD-EPI)AfAm 77.32 Est GFR (CKD-EPI)NonAf 66.71 Random Glucose 115 H Calcium 9.2 Phosphorus Magnesium Total Bilirubin AST ALT Alkaline Phosphatase Creatine Kinase Troponin I Total Protein Albumin Lipase Urine Color Yellow Urine Appearance Clear Urine pH 5.0 Ur Specific [place] 1.056 H Urine Protein Negative Urine Glucose (UA) Negative Urine Ketones 15 mg/dl Urine Blood Negative Urine Nitrite Negative Urine Bilirubin Negative Urine Urobilinogen 1.0 Ur Leukocyte Esterase Negative Urine WBC (Auto) 0.7 Urine RBC (Auto) 2.4 Urine Casts (Auto) 0.35 U Epithel Cells (Auto) 0.8 U Sm Round Cell (Auto) Bacteria Urine Bacteria (Auto) 2.6 Influenza A (Rapid) Influenza B (Rapid) S1 S2 RRR Lungs clear Abd- soft, obese, NT No edema PLAN Abd pain -- CT abd and sono findings noted -- benign exam -- not tender -- GI eval -- iv fluids -- start diet Problem List - Problems (1) Abdominal pain Code(s): R10.9 - UNSPECIFIED ABDOMINAL PAIN Qualifiers: Abdominal location: generalized Qualified Code(s): R10.84 - Generalized abdominal pain (2) Cerebral palsy Code(s): G80.9 - CEREBRAL PALSY, UNSPECIFIED (3) Anxiety Code(s): F41.9 - ANXIETY DISORDER, UNSPECIFIED (4) Borderline personality disorder in adult Code(s): F60.3 - BORDERLINE PERSONALITY DISORDER (5) Vomiting Code(s): R11.10 - VOMITING, UNSPECIFIED Qualifiers: Vomiting type: unspecified Vomiting Intractability: non-intractable Nausea presence: with nausea Qualified Code(s): R11.2 - Nausea with vomiting, unspecified
[2019-06-09] MEDS ORDERED: DEXTROSE 5%-NORMAL SALINE 1,000 ML IV SCH (12:45)
--- NOTE | 2019-06-09 13:06 | CON.GI ---
Consult Consult Specialty:: Gastroenterology Referred by:: Dr. Parrish Reason for Consultation:: Abdominal pain - History of Present Illness Chief Complaint: Abdominal pain History of Present Illness: 73yo male h/o cerebral palsy, CAD s/p CABG, CVA with left sided weakness, hearing impairment presenting with abdominal pain. Pt minimally verbal, responds with few words and nods yes/no. Per records pt reportedly indicating abdominal pain prompting ED evaluation. Pt denies abdominal pain currently, nods yes when asked if feeling better. No vomiting reported. No complaints currently. CT abd/pelvis and US abd revealing distended gallbladder with stones and possible wall thickening. 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) Cardio/Vascular: Yes: CAD, HTN ENT: Yes: Other Endocrine: Yes: Diabetes Mellitus - Past Surgical History Past Surgical History: Yes: CABG - Alcohol/Substance Use Hx Alcohol Use: No History of Substance Use: reports: None - Smoking History Smoking history: Unknown if ever smoked Have you smoked in the past 12 months: No Aproximately how many cigarettes per day: 0 If you are a former smoker, when did you quit?: 40 + YEARS - Social History Usual Living Arrangement: Alone History of Recent Travel: No Home Medications - Allergies Allergies/Adverse Reactions: Allergies Allergy/AdvReac Type Severity Reaction Status Date / Time No Known Allergies Allergy Verified 06/08/19 19:22 - Home Medications Home Medications: Ambulatory Orders Aspirin Coated [Ecotrin -] 81 mg PO DAILY 08/08/15 Docusate Sodium [Colace -] 100 mg PO TID 08/08/15 Ezetimibe [Zetia] 10 mg PO DAILY 08/08/15 Simvastatin [Zocor -] 20 mg PO HS 08/08/15 Escitalopram Oxalate [Lexapro -] 10 mg PO DAILY #30 tablet 05/13/18 Metoprolol Tartrate [Lopressor -] 12.5 mg PO BID #60 tablet 12/05/18 Review of Systems Unable to obtain ROS, reason: Pt minimally verbal Physical Exam-GI Vital Signs: Vital Signs Temperature 98.2 F 06/09/19 10:00 Pulse Rate 66 06/09/19 10:00 Respiratory Rate 20 06/09/19 10:00 Blood Pressure 118/67 06/09/19 10:00 O2 Sat by Pulse Oximetry (%) 95 06/09/19 08:44 Constitutional: Yes: Well Nourished, No Distress, Calm Cardiovascular: Yes: WNL Respiratory: Yes: WNL ...Palpate: Yes: Other (Abd soft, no tenderness elicited, non distended) Labs: CBC, BMP 06/09/19 08:15 06/09/19 08:15 Imaging - Results Cat Scan: Report Reviewed, Image Reviewed Ultrasound: Report Reviewed Problem List - Problems (1) Abdominal pain Assessment/Plan: 73yo male h/o cerebral palsy, CAD s/p CABG, CVA with left sided weakness, hearing impairment presenting with abdominal pain. Symptoms appear to have resolved ?biliary colic pain. CT and US revealing distended gallbladder with stones and possible wall thickening. LFTs normal and overall does not appear consistent with pancreatitis. -Continue supportive measures for now, IVF -Advance diet as tolerated -Consider HIDA scan to further evaluate r/o cholecystitis based on US imaging however low clinical suspicion -Repeat LFTs to ensure remain normal Code(s): R10.9 - UNSPECIFIED ABDOMINAL PAIN Qualifiers: Abdominal location: generalized Qualified Code(s): R10.84 - Generalized abdominal pain
[2019-06-10 10:09] LABS: ALBUMIN 3.4 g/dl (3.4-5.0); BILIRUBIN,TOTAL 0.4 mg/dL (0.2-1); BLOOD UREA NITROGEN 21.5 mg/dL (7-18); CALCIUM 8.9 mg/dL (8.5-10.1); POTASSIUM 4.1 mmol/L (3.5-5.1); TOT PROT 6.3 g/dl (6.4-8.2)
--- NOTE | 2019-06-10 11:26 | DS ---
Physical Examination Vital Signs: Vital Signs Temperature 97.9 F 06/10/19 10:00 Pulse Rate 86 06/10/19 10:00 Respiratory Rate 18 06/10/19 10:00 Blood Pressure 142/88 06/10/19 10:00 O2 Sat by Pulse Oximetry (%) 95 06/10/19 10:00 Constitutional: Yes: No Distress, Calm Cardiovascular: Yes: Regular Rate and Rhythm Respiratory: Yes: CTA Bilaterally Gastrointestinal: Yes: Normal Bowel Sounds, Soft, Abdomen, Obese Edema: No Labs: CBC, BMP 06/09/19 08:15 06/10/19 08:00 Discharge Summary Problems reviewed: Yes Reason For Visit: ABDOMINAL PAIN Current Active Problems Abdominal pain (Acute) Cerebral palsy (Acute) Hospital Course: Admitting History and Physical - Primary Care Physician PCP: Carlitos Ribeiro - Admission Chief Complaint: Abdominal Pain History of Present Illness: This is a 73 y/o man with a PMHx of CP, Deaf Mute, CVA (L-sided residual), CAD s /p CABG, HTN, HLD, T2DM, GERD, Anxiety, Depression. Who presents to the ED complaining of not feeling well. Per ED record: Pt initially indicated he spoke ASL. 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 Repeatedly said "pain" and pointed to his abdomen. CT abd/pelvis-- contracted gallbladder sono abd-- contracted gallbladder, gall stones Seen by GI restarted diet-- tolerating well no pain stable for dc to STR as pt is deconditioned Condition: Stable - Instructions Referrals: Carlitos Ribeiro MD [Primary Care Provider] - [facility] - Home Medications Comprehensive Discharge Medication List: Ambulatory Orders Aspirin Coated [Ecotrin -] 81 mg PO DAILY 08/08/15 Docusate Sodium [Colace -] 100 mg PO TID 08/08/15 Ezetimibe [Zetia] 10 mg PO DAILY 08/08/15 Simvastatin [Zocor -] 20 mg PO HS 08/08/15 Escitalopram Oxalate [Lexapro -] 10 mg PO DAILY #30 tablet 05/13/18 Metoprolol Tartrate [Lopressor -] 12.5 mg PO BID #60 tablet 12/05/18
[2019-06-10] MEDS: METOPROLOL TARTRATE 25 MG TABLET (FP) PO SCH ×2 (12:06→22:31)
[2019-06-10] MEDS: ESCITALOPRAM OXALATE 10 MG TABLET PO SCH (12:06)
[2019-06-10] MEDS: ASPIRIN COATED 81 MG TABLET.EC PO SCH (12:07)
--- NOTE | 2019-06-10 20:16 | PN.GI ---
GI Progress Note Subjective: No abdominal pain HIDA not performed Tolerating PO States that he wants to go home - Objective Vital Signs: Vital Signs Temperature 97.2 F L 06/10/19 13:27 Pulse Rate 89 06/10/19 13:27 Respiratory Rate 18 06/10/19 13:27 Blood Pressure 120/74 06/10/19 13:27 O2 Sat by Pulse Oximetry (%) 95 06/10/19 10:00 Constitutional: Calm Eyes: No: Sclera Icterus Cardiovascular: Yes: Regular Rate and Rhythm Respiratory: Yes: CTA Bilaterally Gastrointestinal Inspection: No: Distention ...Auscultate: Yes: Normoactive Bowel Sounds ...Palpate: Yes: Soft. No: Hepatomegaly, Splenomegaly ...Percussion: No: Tympanitic Edema: No (No LE edema) Neurological: Yes: Alert Labs: CBC, BMP 06/09/19 08:15 06/10/19 08:00 Problem List - Problems (1) Abdominal pain Assessment/Plan: Currently no abdominal pain and tolerating PO Continue to monitor for now Recall as needed Code(s): R10.9 - UNSPECIFIED ABDOMINAL PAIN Qualifiers: Abdominal location: generalized Qualified Code(s): R10.84 - Generalized abdominal pain
[2019-06-10] MEDS: ATORVASTATIN CA 10 MG TABLET (FP) PO SCH (22:31)
[2019-06-11] MEDS: EZETIMIBE 10 MG TABLET (FP) PO SCH (09:32)
[2019-06-11] MEDS: ESCITALOPRAM OXALATE 10 MG TABLET PO SCH (09:32)
[2019-06-11] MEDS: ASPIRIN COATED 81 MG TABLET.EC PO SCH (09:32)
[2019-06-11] MEDS: METOPROLOL TARTRATE 25 MG TABLET (FP) PO SCH ×4 (09:32→22:30)
--- NOTE | 2019-06-11 12:44 | PN ---
Progress Note (short form) - Note Progress Note: pt seen/ examined chart is reviewed awake/ comfortable sitting in chair calm No distress denies pain taking orally Vital Signs Temp 98.2 F 06/11/19 10:00 Pulse 56 L 06/11/19 10:00 Resp 20 06/11/19 10:00 BP 121/57 L 06/11/19 10:00 Pulse Ox 95 06/11/19 09:00 Intake & Output 06/10/19 06/11/19 06/11/19 23:59 11:59 23:59 Intake Total 1100 300 Balance 1100 300 Weight 173 lb Intake: Oral 1100 300 Other: Voiding Method Urinal Urinal # Unmeasured Voids Void 2 1 Bowel Movement No No Height 5 ft 4 in Body Mass Index (BMI) 29.7 Active Medications Aspirin (Ecotrin -) 81 mg PO DAILY [facility] Last Admin: 06/11/19 09:32 Dose: 81 mg Atorvastatin Calcium (Lipitor -) 10 mg PO HS [facility] Last Admin: 06/10/19 22:31 Dose: 10 mg Ezetimibe (Zetia -) 10 mg PO DAILY [facility] Last Admin: 06/11/19 09:32 Dose: 10 mg Escitalopram Oxalate (Lexapro -) 10 mg PO DAILY [facility] Last Admin: 06/11/19 09:32 Dose: 10 mg Metoprolol Tartrate (Lopressor -) 12.5 mg PO BID [facility] Last Admin: 06/11/19 09:32 Dose: 12.5 mg CBC, BMP 06/09/19 08:15 06/10/19 08:00 Microbiology 06/09/19 07:30 Urine Culture - Final Urine - Urine Clean Catch NO GROWTH OBTAINED Physical Exam S1 S2 RRR Lungs clear Abd- soft, obese, NT No edema Awake/ calm Pre -Existing Deficits PLAN Abd pain- resolved -- stable - d/c being planned d/w Rn also Problem List - Problems (1) Abdominal pain Code(s): R10.9 - UNSPECIFIED ABDOMINAL PAIN Qualifiers: Abdominal location: generalized Qualified Code(s): R10.84 - Generalized abdominal pain (2) Cerebral palsy Code(s): G80.9 - CEREBRAL PALSY, UNSPECIFIED (3) Anxiety Code(s): F41.9 - ANXIETY DISORDER, UNSPECIFIED (4) Borderline personality disorder in adult Code(s): F60.3 - BORDERLINE PERSONALITY DISORDER (5) Vomiting Code(s): R11.10 - VOMITING, UNSPECIFIED Qualifiers: Vomiting type: unspecified Vomiting Intractability: non-intractable Nausea presence: with nausea Qualified Code(s): R11.2 - Nausea with vomiting, unspecified
[2019-06-11] MEDS: ATORVASTATIN CA 10 MG TABLET (FP) PO SCH ×4 (21:36→22:32)
[2019-06-12] MEDS: ASPIRIN COATED 81 MG TABLET.EC PO SCH (09:19)
[2019-06-12] MEDS: EZETIMIBE 10 MG TABLET (FP) PO SCH (09:19)
[2019-06-12] MEDS: METOPROLOL TARTRATE 25 MG TABLET (FP) PO SCH ×2 (09:19→21:51)
[2019-06-12] MEDS: ESCITALOPRAM OXALATE 10 MG TABLET PO SCH (09:19)
--- NOTE | 2019-06-12 11:53 | PN ---
Progress Note (short form) - Note Progress Note: pt seen/ examined chart is reviewed awake/comfortable mood is calm Legal gaurdian at bedside Vital Signs Temp 98.0 F 06/12/19 09:49 Pulse 65 06/12/19 09:49 Resp 20 06/12/19 09:49 BP 119/64 06/12/19 09:49 Pulse Ox 94 L 06/12/19 09:00 Intake & Output 06/11/19 06/11/19 06/12/19 11:59 23:59 11:59 Intake Total 300 250 490 Balance 300 250 490 Weight 173 lb Intake: Oral 300 250 490 Other: Voiding Method Urinal Urinal Urinal # Unmeasured Voids Void 1 2 2 Bowel Movement No No No Height 5 ft 4 in Body Mass Index (BMI) 29.7 Active Medications Aspirin (Ecotrin -) 81 mg PO DAILY [facility] Last Admin: 06/12/19 09:19 Dose: 81 mg Atorvastatin Calcium (Lipitor -) 10 mg PO HS [facility] Last Admin: 06/11/19 22:32 Dose: 10 mg Ezetimibe (Zetia -) 10 mg PO DAILY [facility] Last Admin: 06/12/19 09:19 Dose: 10 mg Escitalopram Oxalate (Lexapro -) 10 mg PO DAILY [facility] Last Admin: 06/12/19 09:19 Dose: 10 mg Metoprolol Tartrate (Lopressor -) 12.5 mg PO BID [facility] Last Admin: 06/12/19 09:19 Dose: 12.5 mg CBC, BMP 06/09/19 08:15 06/10/19 08:00 Physical Exam S1 S2 RRR Lungs clear Abd- soft, obese, NT No edema Awake/ calm Pre -Existing Deficits PLAN Abd pain- resolved -- stable - d/c being planned d/w Rn also as well as director case management Will consult Psych also -- Recent Psych admission and was on Seroquel D/w Legal gaurdian also Will follow Problem List - Problems (1) Abdominal pain Code(s): R10.9 - UNSPECIFIED ABDOMINAL PAIN Qualifiers: Abdominal location: generalized Qualified Code(s): R10.84 - Generalized abdominal pain (2) Cerebral palsy Code(s): G80.9 - CEREBRAL PALSY, UNSPECIFIED (3) Anxiety Code(s): F41.9 - ANXIETY DISORDER, UNSPECIFIED (4) Borderline personality disorder in adult Code(s): F60.3 - BORDERLINE PERSONALITY DISORDER (5) Vomiting Code(s): R11.10 - VOMITING, UNSPECIFIED Qualifiers: Vomiting type: unspecified Vomiting Intractability: non-intractable Nausea presence: with nausea Qualified Code(s): R11.2 - Nausea with vomiting, unspecified
[2019-06-12] MEDS: ATORVASTATIN CA 10 MG TABLET (FP) PO SCH (21:51)
[2019-06-13] MEDS: METOPROLOL TARTRATE 25 MG TABLET (FP) PO SCH ×2 (09:21→21:48)
[2019-06-13] MEDS: ESCITALOPRAM OXALATE 10 MG TABLET PO SCH (09:21)
[2019-06-13] MEDS: ASPIRIN COATED 81 MG TABLET.EC PO SCH (09:21)
[2019-06-13] MEDS: EZETIMIBE 10 MG TABLET (FP) PO SCH (09:21)
--- NOTE | 2019-06-13 11:49 | CON.PSY ---
Psychiatry Consult Chief Complaint: 73 Ywera old male with devere Hearing impairmemt admitted from Home. apparantly became aggressive toward Home [facility] aids. They dont want to take care of him shyla more. Patient is verry pleasant here and has not exhibited any aggressive behaviour. Waqtinh I apd and playing games. - Previous Psychiatric Treatment Outpatient: None Inpatient: None, Within the last 12 months - Reason for Previous Treatment Reason for Previous Treatment: Major Depression - Current Medications Current Medications: Active Medications Aspirin (Ecotrin -) 81 mg PO DAILY [facility] Last Admin: 06/13/19 09:21 Dose: 81 mg Atorvastatin Calcium (Lipitor -) 10 mg PO HS [facility] Last Admin: 06/12/19 21:51 Dose: 10 mg Ezetimibe (Zetia -) 10 mg PO DAILY [facility] Last Admin: 06/13/19 09:21 Dose: 10 mg Escitalopram Oxalate (Lexapro -) 10 mg PO DAILY [facility] Last Admin: 06/13/19 09:21 Dose: 10 mg Metoprolol Tartrate (Lopressor -) 12.5 mg PO BID [facility] Last Admin: 06/13/19 09:21 Dose: 12.5 mg - Allergies Allergies: Allergies Allergy/AdvReac Type Severity Reaction Status Date / Time No Known Allergies Allergy Verified 06/08/19 19:22 - Current Living Status Usual Living Arrangement: Alone - Current Mental Status Evaluation Appearance: Well Groomed Attitude: Cooperative - Affect Affect: Full Range Appropriateness: Appropriate to Content - Mood Mood: Euthymic - Speech/Language Expressive: Coherent - Psychomotor Activity Psychomotor Activity: Normal - Thought Process Thought Process: Intact - Thought Content Hallucinations: Absent Delusions: Absent - Self Perception Self Perception: No Impairment - Cognition Attention: Alert Memory, Immediate Recall: Impaired Memory, Short Term: 2/3 Memory, Remote with Promptin/3 - Concentration Serial Sevens Intact: No Simple Calculations Intact: No (unable to rngsage in any conversation.) - Abstraction Proverb Interpretation: [place] Judgement: Minimally Impaired - Insight Insight: Impaired - Impulse Control Impulse Control: Minimally Impaired - Suicidal Ideation Suicidal Ideation: No - Homicidal Ideation Homicidal Ideation: No Assessment/Plan 1) Continue with Lexapro for DEpression. 2) Does not need any other Psych meds now.
--- NOTE | 2019-06-13 12:24 | PN ---
Progress Note (short form) - Note Progress Note: comfortable pleasant no new issues denies pain mood stable eating ok Vital Signs Temp 97.8 F 06/13/19 10:00 Pulse 66 06/13/19 10:00 Resp 20 06/13/19 10:00 BP 132/72 06/13/19 10:00 Pulse Ox 95 06/13/19 09:00 Intake & Output 06/12/19 06/13/19 06/13/19 23:59 11:59 23:59 Intake Total 350 Output Total 600 Balance 350 -600 Intake: Oral 350 Output: Urine 600 Void 600 Other: Voiding Method Urinal Urinal # Unmeasured Voids Void 2 Bowel Movement No No CBC, BMP 06/09/19 08:15 06/10/19 08:00 Physical Exam S1 S2 RRR Lungs clear Abd- soft, obese, NT No edema Awake/ calm Pre -Existing Deficits PLAN Abd pain- resolved -- stable - d/c being planned d/w Rn also as well as test case developer Psych consult noted and appreciated Will follow Problem List - Problems (1) Abdominal pain Code(s): R10.9 - UNSPECIFIED ABDOMINAL PAIN Qualifiers: Abdominal location: generalized Qualified Code(s): R10.84 - Generalized abdominal pain (2) Cerebral palsy Code(s): G80.9 - CEREBRAL PALSY, UNSPECIFIED (3) Anxiety Code(s): F41.9 - ANXIETY DISORDER, UNSPECIFIED (4) Borderline personality disorder in adult Code(s): F60.3 - BORDERLINE PERSONALITY DISORDER (5) Vomiting Code(s): R11.10 - VOMITING, UNSPECIFIED Qualifiers: Vomiting type: unspecified Vomiting Intractability: non-intractable Nausea presence: with nausea Qualified Code(s): R11.2 - Nausea with vomiting, unspecified
[2019-06-13] MEDS: ATORVASTATIN CA 10 MG TABLET (FP) PO SCH (21:48)
[2019-06-14] MEDS: ASPIRIN COATED 81 MG TABLET.EC PO SCH (10:06)
[2019-06-14] MEDS: METOPROLOL TARTRATE 25 MG TABLET (FP) PO SCH ×2 (10:06→22:31)
[2019-06-14] MEDS: ESCITALOPRAM OXALATE 10 MG TABLET PO SCH (10:06)
[2019-06-14] MEDS: EZETIMIBE 10 MG TABLET (FP) PO SCH (10:07)
--- NOTE | 2019-06-14 12:18 | PN ---
Progress Note (short form) - Note Progress Note: Pt seen/ examined awake/ comfortable no new issues alert/ awake calm/ pleasant. Vital Signs Temp 97.9 F 06/14/19 07:48 Pulse 56 L 06/14/19 07:48 Resp 15 06/14/19 07:48 BP 113/65 06/14/19 07:48 Pulse Ox 95 06/14/19 09:00 Intake & Output 06/13/19 06/14/19 06/14/19 23:59 11:59 23:59 Intake Total 600 620 Output Total 400 Balance 200 620 Intake: Oral 600 Oral Supplement 620 Output: Urine 400 Void 400 Other: Voiding Method Toilet Toilet Toilet # Unmeasured Voids Void 2 2 Bowel Movement No No Active Medications Aspirin (Ecotrin -) 81 mg PO DAILY [facility] Last Admin: 06/14/19 10:06 Dose: 81 mg Atorvastatin Calcium (Lipitor -) 10 mg PO HS [facility] Last Admin: 06/13/19 21:48 Dose: 10 mg Ezetimibe (Zetia -) 10 mg PO DAILY [facility] Last Admin: 06/14/19 10:07 Dose: 10 mg Escitalopram Oxalate (Lexapro -) 10 mg PO DAILY [facility] Last Admin: 06/14/19 10:06 Dose: 10 mg Metoprolol Tartrate (Lopressor -) 12.5 mg PO BID [facility] Last Admin: 06/14/19 10:06 Dose: 12.5 mg CBC, BMP 06/09/19 08:15 06/10/19 08:00 Physical Exam S1 S2 RRR Lungs clear Abd- soft, obese, NT No edema Awake/ calm Pre -Existing Deficits PLAN Abd pain- resolved -- stable - d/c being planned-- Awaiting Authorization d/w Rn also as well as telephonic nurse case manager Will follow
[2019-06-14] MEDS: ATORVASTATIN CA 10 MG TABLET (FP) PO SCH (22:31)
[2019-06-15] MEDS: ESCITALOPRAM OXALATE 10 MG TABLET PO SCH (09:33)
[2019-06-15] MEDS: ASPIRIN COATED 81 MG TABLET.EC PO SCH (09:33)
[2019-06-15] MEDS: METOPROLOL TARTRATE 25 MG TABLET (FP) PO SCH ×2 (09:33→22:39)
[2019-06-15] MEDS: EZETIMIBE 10 MG TABLET (FP) PO SCH (09:33)
--- NOTE | 2019-06-15 13:54 | PN ---
Progress Note (short form) - Note Progress Note: events noted Admitted for abd pain no pain eating well ambulating fine Vital Signs - 24 hr 06/14/19 06/14/19 06/14/19 14:45 21:00 22:10 Temperature 98.3 F 98.9 F Pulse Rate 55 L 63 Respiratory 18 20 20 Rate Blood Pressure 102/51 L 102/59 L O2 Sat by Pulse 95 Oximetry (%) 06/15/19 06/15/19 06/15/19 06:04 08:09 08:12 Temperature 97.9 F 98 F Pulse Rate 56 L 55 L Respiratory 20 18 18 Rate Blood Pressure 105/68 134/54 L O2 Sat by Pulse 96 Oximetry (%) Current Medications Generic Name Dose Route Start Last Admin Trade Name Marvin PRN Reason Stop Dose Admin Aspirin 81 mg 06/10/19 11:30 06/15/19 09:33 Ecotrin - PO 81 mg DAILY [facility] Administration Atorvastatin Calcium 10 mg 06/10/19 22:00 06/14/19 22:31 Lipitor - PO 10 mg HS [facility] Administration Ezetimibe 10 mg 06/11/19 10:00 06/15/19 09:33 Zetia - PO 10 mg DAILY [facility] Administration Escitalopram Oxalate 10 mg 06/10/19 11:30 06/15/19 09:33 Lexapro - PO 10 mg DAILY [facility] Administration Metoprolol Tartrate 12.5 mg 06/10/19 11:30 06/15/19 09:33 Lopressor - PO 12.5 mg BID [facility] Administration S1 S2 RRR Lungs clear Abd- soft, obese, NT No edema PLAN Abd pain -- CT abd and sono findings noted -- benign exam -- not tender -- GI eval noted -- diet continue with meds DC planning Neurology eval for aphasia Problem List - Problems (1) Abdominal pain Code(s): R10.9 - UNSPECIFIED ABDOMINAL PAIN Qualifiers: Abdominal location: generalized Qualified Code(s): R10.84 - Generalized abdominal pain (2) Cerebral palsy Code(s): G80.9 - CEREBRAL PALSY, UNSPECIFIED (3) Anxiety Code(s): F41.9 - ANXIETY DISORDER, UNSPECIFIED (4) Borderline personality disorder in adult Code(s): F60.3 - BORDERLINE PERSONALITY DISORDER (5) Vomiting Code(s): R11.10 - VOMITING, UNSPECIFIED Qualifiers: Vomiting type: unspecified Vomiting Intractability: non-intractable Nausea presence: with nausea Qualified Code(s): R11.2 - Nausea with vomiting, unspecified
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
[2019-06-15] MEDS ORDERED: PT OWN MED DRAWER 7, Y5N ONE (15:19)
[2019-06-15] MEDS: ATORVASTATIN CA 10 MG TABLET (FP) PO SCH (22:39)
[2019-06-16] MEDS: METOPROLOL TARTRATE 25 MG TABLET (FP) PO SCH ×2 (09:45→21:04)
[2019-06-16] MEDS: EZETIMIBE 10 MG TABLET (FP) PO SCH (09:45)
[2019-06-16] MEDS: ESCITALOPRAM OXALATE 10 MG TABLET PO SCH (09:45)
[2019-06-16] MEDS: ASPIRIN COATED 81 MG TABLET.EC PO SCH (09:45)
--- NOTE | 2019-06-16 12:00 | PN ---
Progress Note (short form) - Note Progress Note: events noted Admitted for abd pain no pain eating well ambulating fine Vital Signs - 24 hr 06/15/19 06/15/19 06/15/19 14:13 21:00 22:09 Temperature 98.6 F 97.9 F Pulse Rate 61 58 L Respiratory 18 20 20 Rate Blood Pressure 109/59 L 122/65 O2 Sat by Pulse 96 Oximetry (%) 06/16/19 06/16/19 06/16/19 05:40 09:00 09:47 Temperature 98.0 F 97.8 F Pulse Rate 94 H 56 L Respiratory 20 18 18 Rate Blood Pressure 100/57 L 113/61 O2 Sat by Pulse 100 Oximetry (%) Current Medications Generic Name Dose Route Start Last Admin Trade Name Marvin PRN Reason Stop Dose Admin Aspirin 81 mg 06/10/19 11:30 06/16/19 09:45 Ecotrin - PO 81 mg DAILY [facility] Administration Atorvastatin Calcium 10 mg 06/10/19 22:00 06/15/19 22:39 Lipitor - PO 10 mg HS [facility] Administration Ezetimibe 10 mg 06/11/19 10:00 06/16/19 09:45 Zetia - PO 10 mg DAILY [facility] Administration Escitalopram Oxalate 10 mg 06/10/19 11:30 06/16/19 09:45 Lexapro - PO 10 mg DAILY [facility] Administration Metoprolol Tartrate 12.5 mg 06/10/19 11:30 06/16/19 09:45 Lopressor - PO 12.5 mg BID [facility] Administration S1 S2 RRR Lungs clear Abd- soft, obese, NT No edema PLAN Abd pain -- CT abd and sono findings noted -- benign exam -- not tender -- GI eval noted -- diet continue with meds DC planning Neurology eval for aphasia appreciated Problem List - Problems (1) Abdominal pain Code(s): R10.9 - UNSPECIFIED ABDOMINAL PAIN Qualifiers: Abdominal location: generalized Qualified Code(s): R10.84 - Generalized abdominal pain (2) Cerebral palsy Code(s): G80.9 - CEREBRAL PALSY, UNSPECIFIED (3) Anxiety Code(s): F41.9 - ANXIETY DISORDER, UNSPECIFIED (4) Borderline personality disorder in adult Code(s): F60.3 - BORDERLINE PERSONALITY DISORDER (5) Vomiting Code(s): R11.10 - VOMITING, UNSPECIFIED Qualifiers: Vomiting type: unspecified Vomiting Intractability: non-intractable Nausea presence: with nausea Qualified Code(s): R11.2 - Nausea with vomiting, unspecified
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
[2019-06-16] MEDS: ATORVASTATIN CA 10 MG TABLET (FP) PO SCH (21:04)
[2019-06-17] MEDS: EZETIMIBE 10 MG TABLET (FP) PO SCH (09:14)
[2019-06-17] MEDS: ESCITALOPRAM OXALATE 10 MG TABLET PO SCH (09:14)
[2019-06-17] MEDS: METOPROLOL TARTRATE 25 MG TABLET (FP) PO SCH ×2 (09:14→22:06)
[2019-06-17] MEDS: ASPIRIN COATED 81 MG TABLET.EC PO SCH (09:14)
--- NOTE | 2019-06-17 13:07 | PN ---
Progress Note (short form) - Note Progress Note: events noted Admitted for abd pain no pain eating well ambulating fine pleasant no distress Vital Signs - 24 hr 06/16/19 06/16/19 06/16/19 15:17 20:00 21:00 Temperature 98.3 F Pulse Rate 56 L 59 L Respiratory 20 20 20 Rate Blood Pressure 111/54 L 108/59 L O2 Sat by Pulse 98 Oximetry (%) 06/16/19 06/17/19 06/17/19 22:08 05:59 09:00 Temperature 97.8 F 97.7 F Pulse Rate 64 50 L Respiratory 20 20 Rate Blood Pressure 118/70 100/57 L O2 Sat by Pulse 95 Oximetry (%) 06/17/19 10:00 Temperature 98.0 F Pulse Rate 61 Respiratory 20 Rate Blood Pressure 129/67 O2 Sat by Pulse Oximetry (%) Current Medications Generic Name Dose Route Start Last Admin Trade Name Freq PRN Reason Stop Dose Admin Aspirin 81 mg 06/10/19 11:30 06/17/19 09:14 Ecotrin - PO 81 mg DAILY [facility] Administration Atorvastatin Calcium 10 mg 06/10/19 22:00 06/16/19 21:04 Lipitor - PO 10 mg HS [facility] Administration Ezetimibe 10 mg 06/11/19 10:00 06/17/19 09:14 Zetia - PO 10 mg DAILY [facility] Administration Escitalopram Oxalate 10 mg 06/10/19 11:30 06/17/19 09:14 Lexapro - PO 10 mg DAILY [facility] Administration Metoprolol Tartrate 12.5 mg 06/10/19 11:30 06/17/19 09:14 Lopressor - PO 12.5 mg BID [facility] Administration S1 S2 RRR Lungs clear Abd- soft, obese, NT No edema PLAN Abd pain -- CT abd and sono findings noted -- benign exam -- not tender -- GI eval noted -- diet continue with meds DC planning Neurology eval for aphasia appreciated pt is pleasant here He does not pose a risk for self or others Problem List - Problems (1) Abdominal pain Code(s): R10.9 - UNSPECIFIED ABDOMINAL PAIN Qualifiers: Abdominal location: generalized Qualified Code(s): R10.84 - Generalized abdominal pain (2) Cerebral palsy Code(s): G80.9 - CEREBRAL PALSY, UNSPECIFIED (3) Anxiety Code(s): F41.9 - ANXIETY DISORDER, UNSPECIFIED (4) Borderline personality disorder in adult Code(s): F60.3 - BORDERLINE PERSONALITY DISORDER (5) Vomiting Code(s): R11.10 - VOMITING, UNSPECIFIED Qualifiers: Vomiting type: unspecified Vomiting Intractability: non-intractable Nausea presence: with nausea Qualified Code(s): R11.2 - Nausea with vomiting, unspecified
[2019-06-17] MEDS: ATORVASTATIN CA 10 MG TABLET (FP) PO SCH (22:06)
[2019-06-18] MEDS: METOPROLOL TARTRATE 25 MG TABLET (FP) PO SCH ×2 (09:30→21:40)
[2019-06-18] MEDS: ESCITALOPRAM OXALATE 10 MG TABLET PO SCH (09:30)
[2019-06-18] MEDS: EZETIMIBE 10 MG TABLET (FP) PO SCH (09:30)
[2019-06-18] MEDS: ASPIRIN COATED 81 MG TABLET.EC PO SCH (09:31)
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
--- NOTE | 2019-06-18 11:45 | PN ---
Progress Note (short form) - Note Progress Note: Pt seen/ examined comfortable Pleasant no new issues Vital Signs Temp 97.9 F 06/18/19 11:00 Pulse 74 06/18/19 11:00 Resp 20 06/18/19 11:00 BP 100/72 06/18/19 11:00 Pulse Ox 97 06/18/19 11:00 Intake & Output 06/17/19 06/17/19 06/18/19 11:59 23:59 11:59 Intake Total 1200 300 400 Balance 1200 300 400 Intake: Oral 300 400 Oral Supplement 1200 Other: Voiding Method Toilet Toilet Toilet # Unmeasured Voids Void 2 2 # Bowel Movements 0 Active Medications Aspirin (Ecotrin -) 81 mg PO DAILY [facility] Last Admin: 06/18/19 09:31 Dose: 81 mg Atorvastatin Calcium (Lipitor -) 10 mg PO HS [facility] Last Admin: 06/17/19 22:06 Dose: 10 mg Ezetimibe (Zetia -) 10 mg PO DAILY [facility] Last Admin: 06/18/19 09:30 Dose: 10 mg Escitalopram Oxalate (Lexapro -) 10 mg PO DAILY [facility] Last Admin: 06/18/19 09:30 Dose: 10 mg Metoprolol Tartrate (Lopressor -) 12.5 mg PO BID [facility] Last Admin: 06/18/19 09:30 Dose: 12.5 mg CBC, BMP 06/09/19 08:15 06/10/19 08:00 Physical Exam S1 S2 RRR Lungs clear Abd- soft, obese, NT No edema Awake/ calm Pre -Existing Deficits PLAN -- stable - d/c being planned-- Awaiting Authorization d/w Rn also as well as case coordinator again today Problem List - Problems (1) Abdominal pain Code(s): R10.9 - UNSPECIFIED ABDOMINAL PAIN Qualifiers: Abdominal location: generalized Qualified Code(s): R10.84 - Generalized abdominal pain (2) Cerebral palsy Code(s): G80.9 - CEREBRAL PALSY, UNSPECIFIED (3) Cerebrovascular accident, late effects Code(s): I69.90 - UNSPECIFIED SEQUELAE OF UNSPECIFIED CEREBROVASCULAR DISEASE
[2019-06-18] MEDS: ATORVASTATIN CA 10 MG TABLET (FP) PO SCH (21:40)
[2019-06-19] MEDS: EZETIMIBE 10 MG TABLET (FP) PO SCH (09:21)
[2019-06-19] MEDS: METOPROLOL TARTRATE 25 MG TABLET (FP) PO SCH ×2 (09:21→21:40)
[2019-06-19] MEDS: ESCITALOPRAM OXALATE 10 MG TABLET PO SCH (09:21)
[2019-06-19] MEDS: ASPIRIN COATED 81 MG TABLET.EC PO SCH (09:21)
--- NOTE | 2019-06-19 12:33 | PN ---
Progress Note (short form) - Note Progress Note: events noted Admitted for abd pain no pain eating well ambulating fine pleasant Vital Signs - 24 hr 06/18/19 06/18/19 06/18/19 14:55 21:00 23:50 Temperature 98.4 F 98.4 F Pulse Rate 76 69 Respiratory 20 20 20 Rate Blood Pressure 109/59 L 112/77 O2 Sat by Pulse 97 Oximetry (%) 06/19/19 10:00 Temperature 98.0 F Pulse Rate 72 Respiratory 20 Rate Blood Pressure 129/76 O2 Sat by Pulse 95 Oximetry (%) Current Medications Generic Name Dose Route Start Last Admin Trade Name Freq PRN Reason Stop Dose Admin Aspirin 81 mg 06/10/19 11:30 06/19/19 09:21 Ecotrin - PO 81 mg DAILY [facility] Administration Atorvastatin Calcium 10 mg 06/10/19 22:00 06/18/19 21:40 Lipitor - PO 10 mg HS [facility] Administration Ezetimibe 10 mg 06/11/19 10:00 06/19/19 09:21 Zetia - PO 10 mg DAILY [facility] Administration Escitalopram Oxalate 10 mg 06/10/19 11:30 06/19/19 09:21 Lexapro - PO 10 mg DAILY [facility] Administration Metoprolol Tartrate 12.5 mg 06/10/19 11:30 06/19/19 09:21 Lopressor - PO 12.5 mg BID [facility] Administration Laboratory Last Values WBC 5.6 K/mm3 (4.0-10.0) 06/09/19 08:15 RBC 4.68 M/mm3 (4.00-5.60) 06/09/19 08:15 Hgb 14.8 GM/dL (11.7-16.9) 06/09/19 08:15 Hct 42.6 % (35.4-49) 06/09/19 08:15 MCV 91.1 fl (80-96) 06/09/19 08:15 MCH 31.7 pg (25.7-33.7) 06/09/19 08:15 MCHC 34.7 g/dl (32.0-35.9) 06/09/19 08:15 RDW 12.9 % (11.9-15.9) 06/09/19 08:15 Plt Count 213 K/MM3 (134-434) 06/09/19 08:15 MPV 8.7 fl (7.5-11.1) 06/09/19 08:15 Absolute Neuts (auto) 3.3 K/mm3 (1.5-8.0) 06/09/19 08:15 Neutrophils % 57.9 % (42.8-82.8) 06/09/19 08:15 Lymphocytes % 28.6 % (8-40) 06/09/19 08:15 Monocytes % 9.8 % (3.8-10.2) 06/09/19 08:15 Eosinophils % 3.4 % (0-4.5) D 06/09/19 08:15 Basophils % 0.3 % (0-2.0) 06/09/19 08:15 Nucleated RBC % 0 % (0-0) 06/09/19 08:15 Sodium 142 mmol/L (136-145) 06/10/19 08:00 Potassium 4.1 mmol/L (3.5-5.1) 06/10/19 08:00 Chloride 109 mmol/L (98-107) H 06/10/19 08:00 Carbon Dioxide 27 mmol/L (21-32) 06/10/19 08:00 Anion Gap 7 MMOL/L (8-16) L 06/10/19 08:00 BUN 21.5 mg/dL (7-18) H 06/10/19 08:00 Creatinine 1.0 mg/dL (0.55-1.3) 06/10/19 08:00 Est GFR (CKD-EPI)AfAm 86.76 06/10/19 08:00 Est GFR (CKD-EPI)NonAf 74.86 06/10/19 08:00 POC Glucometer 124 UNITS (80-120) 06/14/19 11:17 Random Glucose 115 mg/dL (74-106) H 06/10/19 08:00 Calcium 8.9 mg/dL (8.5-10.1) 06/10/19 08:00 Phosphorus 4.2 mg/dL (2.5-4.9) 06/08/19 23:50 Magnesium 2.2 mg/dL (1.8-2.4) 06/08/19 23:50 Total Bilirubin 0.4 mg/dL (0.2-1) 06/10/19 08:00 AST 15 U/L (15-37) 06/10/19 08:00 ALT 27 U/L (13-61) 06/10/19 08:00 Alkaline Phosphatase 53 U/L (45-117) 06/10/19 08:00 Creatine Kinase 141 U/L (26-308) 06/08/19 23:50 Troponin I < 0.02 ng/ml (0.00-0.05) 06/08/19 23:50 Total Protein 6.3 g/dl (6.4-8.2) L 06/10/19 08:00 Albumin 3.4 g/dl (3.4-5.0) 06/10/19 08:00 Lipase 609 U/L (73-393) H 06/08/19 23:50 Urine Color Yellow 06/09/19 07:30 Urine Appearance Clear 06/09/19 07:30 Urine pH 5.0 (5.0-8.0) 06/09/19 07:30 Ur Specific [place] 1.056 (1.010-1.035) H 06/09/19 07:30 Urine Protein Negative (NEGATIVE) 06/09/19 07:30 Urine Glucose (UA) Negative (NEGATIVE) 06/09/19 07:30 Urine Ketones 15 mg/dl (NEGATIVE) 06/09/19 07:30 Urine Blood Negative (NEGATIVE) 06/09/19 07:30 Urine Nitrite Negative (NEGATIVE) 06/09/19 07:30 Urine Bilirubin Negative (NEGATIVE) 06/09/19 07:30 Urine Urobilinogen 1.0 mg/dL (0.2-1.0) 06/09/19 07:30 Ur Leukocyte Esterase Negative (NEGATIVE) 06/09/19 07:30 Urine WBC (Auto) 0.7 /hpf (0-5) 06/09/19 07:30 Urine RBC (Auto) 2.4 /hpf (0-4) 06/09/19 07:30 Urine Casts (Auto) 0.35 /lpf (0-8) 06/09/19 07:30 U Epithel Cells (Auto) 0.8 /HPF (0-5/HPF) 06/09/19 07:30 U Sm Round Cell (Auto) Bacteria 06/09/19 07:30 Urine Bacteria (Auto) 2.6 /hpf (NEGATIVE) 06/09/19 07:30 Influenza A (Rapid) Negative (Negative) 06/09/19 05:20 Influenza B (Rapid) Negative (Negative) 06/09/19 05:20 S1 S2 RRR Lungs clear Abd- soft, obese, NT No edema PLAN Abd pain -- CT abd and sono findings noted -- benign exam -- not tender -- GI eval noted -- diet continue with meds DC planning Neurology eval for aphasia appreciated pt is pleasant here He does not pose a risk for self or others Problem List - Problems (1) Abdominal pain Code(s): R10.9 - UNSPECIFIED ABDOMINAL PAIN Qualifiers: Abdominal location: generalized Qualified Code(s): R10.84 - Generalized abdominal pain (2) Cerebral palsy Code(s): G80.9 - CEREBRAL PALSY, UNSPECIFIED (3) Anxiety Code(s): F41.9 - ANXIETY DISORDER, UNSPECIFIED (4) Borderline personality disorder in adult Code(s): F60.3 - BORDERLINE PERSONALITY DISORDER (5) Vomiting Code(s): R11.10 - VOMITING, UNSPECIFIED Qualifiers: Vomiting type: unspecified Vomiting Intractability: non-intractable Nausea presence: with nausea Qualified Code(s): R11.2 - Nausea with vomiting, unspecified
[2019-06-19] MEDS: ATORVASTATIN CA 10 MG TABLET (FP) PO SCH (21:40)
--- NOTE | 2019-06-20 09:48 | PN ---
Progress Note (short form) - Note Progress Note: events noted Admitted for abd pain no pain eating well ambulating fine pleasant Vital Signs - 24 hr 06/19/19 06/19/19 06/20/19 20:03 21:00 05:55 Temperature 98.2 F 97.7 F Pulse Rate 62 94 H Respiratory 20 18 Rate Blood Pressure 121/71 103/63 O2 Sat by Pulse 95 Oximetry (%) 06/20/19 06/20/19 09:00 14:32 Temperature 98.2 F 98 F Pulse Rate 53 L Respiratory 18 20 Rate Blood Pressure 103/62 93/54 L O2 Sat by Pulse 92 L Oximetry (%) Current Medications Generic Name Dose Route Start Last Admin Trade Name Freq PRN Reason Stop Dose Admin Aspirin 81 mg 06/10/19 11:30 06/20/19 11:12 Ecotrin - PO 81 mg DAILY MISSY Administration Atorvastatin Calcium 10 mg 06/10/19 22:00 06/19/19 21:40 Lipitor - PO 10 mg HS MISSY Administration Ezetimibe 10 mg 06/11/19 10:00 06/20/19 11:12 Zetia - PO 10 mg DAILY MISSY Administration Escitalopram Oxalate 10 mg 06/10/19 11:30 06/20/19 11:12 Lexapro - PO 10 mg DAILY MISSY Administration Metoprolol Tartrate 12.5 mg 06/10/19 11:30 06/20/19 11:11 Lopressor - PO 12.5 mg BID MISSY Administration S1 S2 RRR Lungs clear Abd- soft, obese, NT No edema PLAN Abd pain -- CT abd and sono findings noted -- benign exam -- not tender -- GI eval noted -- diet continue with meds DC planning Neurology eval for aphasia appreciated pt is pleasant here He does not pose a risk for self or others Problem List - Problems (1) Abdominal pain Code(s): R10.9 - UNSPECIFIED ABDOMINAL PAIN Qualifiers: Abdominal location: generalized Qualified Code(s): R10.84 - Generalized abdominal pain (2) Cerebral palsy Code(s): G80.9 - CEREBRAL PALSY, UNSPECIFIED (3) Anxiety Code(s): F41.9 - ANXIETY DISORDER, UNSPECIFIED (4) Borderline personality disorder in adult Code(s): F60.3 - BORDERLINE PERSONALITY DISORDER (5) Vomiting Code(s): R11.10 - VOMITING, UNSPECIFIED Qualifiers: Vomiting type: unspecified Vomiting Intractability: non-intractable Nausea presence: with nausea Qualified Code(s): R11.2 - Nausea with vomiting, unspecified
[2019-06-20] MEDS: METOPROLOL TARTRATE 25 MG TABLET (FP) PO SCH ×2 (11:11→21:06)
[2019-06-20] MEDS: ESCITALOPRAM OXALATE 10 MG TABLET PO SCH (11:12)
[2019-06-20] MEDS: ASPIRIN COATED 81 MG TABLET.EC PO SCH (11:12)
[2019-06-20] MEDS: EZETIMIBE 10 MG TABLET (FP) PO SCH (11:12)
[2019-06-20] MEDS: ATORVASTATIN CA 10 MG TABLET (FP) PO SCH (21:06)
[2019-06-21] MEDS: ESCITALOPRAM OXALATE 10 MG TABLET PO SCH (09:05)
[2019-06-21] MEDS: METOPROLOL TARTRATE 25 MG TABLET (FP) PO SCH (09:05)
[2019-06-21] MEDS: EZETIMIBE 10 MG TABLET (FP) PO SCH (09:05)
[2019-06-21] MEDS: ASPIRIN COATED 81 MG TABLET.EC PO SCH (09:05)
--- NOTE | 2019-06-21 10:59 | PN ---
Progress Note (short form) - Note Progress Note: Pt seen/ examined comfortable Pleasant no new issues. Vital Signs Period Temp Pulse Resp BP Sys/Rowe Pulse Ox Last 24 Hr 98 F-98.4 F 53-67 18-20 93-114/54-73 95 Active Medications Aspirin (Ecotrin -) 81 mg PO DAILY COUNT INCLUDES THE [facility] Last Admin: 06/18/19 09:31 Dose: 81 mg Atorvastatin Calcium (Lipitor -) 10 mg PO HS COUNT INCLUDES THE [facility] Last Admin: 06/17/19 22:06 Dose: 10 mg Ezetimibe (Zetia -) 10 mg PO DAILY COUNT INCLUDES THE [facility] Last Admin: 06/18/19 09:30 Dose: 10 mg Escitalopram Oxalate (Lexapro -) 10 mg PO DAILY COUNT INCLUDES THE [facility] Last Admin: 06/18/19 09:30 Dose: 10 mg Metoprolol Tartrate (Lopressor -) 12.5 mg PO BID COUNT INCLUDES THE [facility] Last Admin: 06/18/19 09:30 Dose: 12.5 mg CBC, BMP 06/09/19 08:15 06/10/19 08:00 Physical Exam S1 S2 RRR Lungs clear Abd- soft, obese, NT No edema Awake/ calm Pre -Existing Deficits PLAN -- stable - d/c being planned-- Awaiting Authorization mood pleasant - will continue to follow Problem List - Problems (1) Abdominal pain Code(s): R10.9 - UNSPECIFIED ABDOMINAL PAIN Qualifiers: Abdominal location: generalized Qualified Code(s): R10.84 - Generalized abdominal pain (2) Cerebral palsy Code(s): G80.9 - CEREBRAL PALSY, UNSPECIFIED (3) Cerebrovascular accident, late effects Code(s): I69.90 - UNSPECIFIED SEQUELAE OF UNSPECIFIED CEREBROVASCULAR DISEASE
[2019-06-21 15:17] VITALS: BP 114/64; PULSE 63; TEMP 98.3
== END 2019-06-21 21:15 | DRG 445 ==
LOC: JER 18:59 → SUPCPDRO 18:59 → JERBED 06-09 03:47 → J6S 06-09 09:11
PROVIDERS: ADMIT Internal Medicine; ATTEND Internal Medicine
DX: K80.20 Calculus of gallbladder without cholecystitis without obstruction (principal); I69.354 Hemiplegia and hemiparesis following cerebral infarction affecting left non-dominant side; R10.84 Generalized abdominal pain; I10 Essential (primary) hypertension; E78.5 Hyperlipidemia, unspecified; E11.9 Type 2 diabetes mellitus without complications; I25.10 Atherosclerotic heart disease of native coronary artery without angina pectoris; G80.9 Cerebral palsy, unspecified; F60.3 Borderline personality disorder; H91.93 Unspecified hearing loss, bilateral; G93.89 Other specified disorders of brain; Z95.1 Presence of aortocoronary bypass graft; F41.8 Other specified anxiety disorders; E66.9 Obesity, unspecified; Z68.29 Body mass index [BMI] 29.0-29.9, adult
CPT/HCPCS: 36415; 71045-TC-FY; 74177-TC; 76700-TC; 80048; 80053; 81003; 82550; 82962; 83690; 83735; 84100; 84484; 85025; 87086; 87804; 93005; 93010; 97116-GP; 97162-GP; 99284-25; J0131; Q9967